=== PATIENT | female | born 1965 | race Caucasian/White ===

== ENCOUNTER 2023-06-18 11:49 | Inpatient (IN) | payer MEDICAID, SELFPAY ==
[2023-06-18] VITALS (10 sets, daily range): BP systolic 86–108; BP diastolic 51–61; PULSE 88–119; RESP 14–36; TEMP 36.3–37.1; O2SAT 93–100; BMI 19.6; BMI 20.3
--- NOTE | 2023-06-18 12:03 | CT_ITS ---
INDICATION: altered mental status EXAMINATION: CT BRAIN - CT Head or Brain W/O Contrast Injection TECHNIQUE: Multiple axial images were obtained of the head without intravenous contrast. A radiation dose optimization technique was used for this scan. IV Contrast dosage and agent: None. RADIATION DOSAGE (If Supplied By Facility): CTDIvol = ( 44.99 ) mGy, DLP = ( 812.98 ) mGycm COMPARISON: No relevant prior comparison study available FINDINGS: BRAIN PARENCHYMA: No intra- or extra-axial hemorrhage. No evidence of acute infarct. Chronic infarcts in the basal ganglia bilaterally larger on the left side. Mild chronic periventricular deep white matter changes likely due to microvascular disease. There is preservation of the childress/white matter interface. Posterior fossa structures are unremarkable. CSF SPACES: Appropriate for age. No hydrocephalus. Basal cisterns are patent. CALVARIUM, SKULL BASE, PARANASAL SINUSES AND MASTOID AIR CELLS: Clear. No discrete lytic or blastic abnormalities. ORBITS: Both globes, extraocular muscles, optic nerves and retrobulbar fat appear unremarkable. CT/Brain/Head without Contrast IMPRESSION: 1. No acute intracranial process. 2. Chronic lacunar infarcts in basal ganglia. Electronically Signed: Lokesh Smith MD at 13:06 EDT ,
--- NOTE | 2023-06-18 12:03 | EKG12_ITS ---
Test Reason : GENERAL Blood Pressure : / mmHG Vent. Rate : 101 BPM Atrial Rate : 101 BPM P-R Int : 148 ms QRS Dur : 068 ms QT Int : 366 ms P-R-T Axes : 061 015 052 degrees QTc Int : 474 ms Sinus tachycardia Nonspecific ST abnormality Abnormal ECG Confirmed by BELINDA SANDOVAL, MARTHA ([id number]), editor & co founder WAYNE DAVIS ([id number]) on 06/19/2023 8:21:53 AM Referred By: Confirmed By:MARTHA TREVINO MD
--- NOTE | 2023-06-18 12:03 | RAD_ITS ---
INDICATION: pneumonia EXAMINATION/TECHNIQUE: X-RAY - XR Chest 1 View COMPARISON: No relevant prior comparison study available FINDINGS: LINES/DEVICES: None. LUNGS: 4 cm right upper lobe opacity could reflect rounded pneumonia. Tumor however cannot be excluded. Small left pleural effusion. MEDIASTINUM AND CARDIOVASCULAR STRUCTURES: Cardiac silhouette not enlarged. Central airways and mediastinal contour are unremarkable. BONES AND SOFT TISSUES: Unremarkable. RAD/Chest 1 View (Portable) IMPRESSION: 1. Right upper lobe opacity concerning for tumor or less likely a rounded pneumonia. Consider CT scan of the chest. 2. Small left pleural effusion. Electronically Signed: Lokesh Smith MD at 13:08 EDT ,
--- NOTE | 2023-06-18 12:12 | EDS_ITS ---
HPI History of Present Illness Chief Complaint: Confusion Informant: patient, spouse/S.O. and other Narrative Narrative: Patient sent down from pulmonary office secondary to weakness, confusion, hypotension. Patient reportedly was recently admitted at [facility] and found to have a lung mass. She followed up in the office today as a new referral. Significant other states that the patient has been sick for the past 2 to 3 weeks. They thought she had a cold with cough, congestion. She had increased weakness and not wanting to get around as much at home so he took her to the hospital in [place] 1 week ago. They admitted her that evening secondary to a mass in her right lung, small bowel, as well as pneumonia. She was discharged home on June 19 with a 7-day course of cefdinir. Dr. Canales reports that she was hypotensive with systolic pressures initially in the 60s in his office improved to the 80s. She is confused and lethargic and he sent her down for workup and admission. Significant other states that she does have a history of alcohol and tobacco abuse. She has not had a drink or been smoking for the past 2 to 3 weeks. She has not seen a doctor in several years. [facility] Medical History (Updated 06/18/23 @ 14:[address] Shante Daley MD) Alcohol abuse Pneumonia Home Medications cefdinir 300 mg capsule 300 mg PO Q12H 06/18/23 [History Last Taken 06/17/23] ferrous fumarate 324 mg (106 mg iron) tablet (Ferrocite) 324 mg PO DAILY 06/18/23 [History Last Taken 06/17/23] folic acid 1 mg tablet 1 mg PO DAILY 06/18/23 [History Last Taken 06/17/23] magnesium oxide 400 mg (241.3 mg magnesium) tablet 400 mg PO TID 06/18/23 [History Last Taken 06/17/23] thiamine HCl (vitamin B1) 100 mg tablet 100 mg PO DAILY 06/18/23 [History Last Taken 06/17/23] Allergy/AdvReac Type Severity Reaction Status Date / Time No Known Allergies Allergy Verified 06/18/23 11:51 Social History Smoking Status: Former smoker ROS ROS ED ROS Narrative Patient only answering occasional questions. History provided by significant other at bedside. Review of Systems ROS Unobtainable: due to mental condition EXAM Physical Exam Const Vital Signs: 06/18/23 11:51 06/18/23 12:33 06/18/23 13:03 Temperature 97.4 F L 98 F Temperature Source Temporal Oral Pulse Rate 119 H 106 H 93 Respiratory Rate 16 36 H 32 H Blood Pressure 86/51 L 108/59 L 96/58 L Blood Pressure Mean 62 75 70 Pulse Ox 100 98 98 Oxygen Delivery Method Room Air Room Air Room Air 06/18/23 14:38 Temperature 98.1 F Temperature Source Oral Pulse Rate 92 Respiratory Rate 24 H Blood Pressure 103/60 Blood Pressure Mean 74 Pulse Ox 93 Oxygen Delivery Method Room Air Positive cachectic and unkempt General Appearance ED: unkempt and cachectic Nutritional Appearance: cachectic HEENT Reports dry mucous membranes Mouth ED: Yes dry mucous membranes Mouth: dry mucous membranes Eyes EOMs intact bilaterally Chest Wall inspection of chest normal and palpation of chest normal Resp normal respiratory effort and clear to auscultation bilaterally Cardio regular rate and regular rhythm GI non-tender Auscultation: hypoactive bowel sounds Palpation: soft Extremity normal to inspection Neuro Neuro Narrative: Patient will answer simple yes and no questions. No focal neurologic deficits apparent. Psych Appearance: unkempt Skin no rashes or lesions noted MDM MDM MDM Narrative Medical decision making narrative: Patient placed on drill operator automatic. Systolic blood pressures currently in the 60s. IV line established IV fluid bolus initiated. Labwork obtained to evaluate for leukocytosis, anemia, and electrolyte derangement. Urinalysis obtained to evaluate for infection/hematuria. Chest x-ray obtained to evaluate for acute lung pathology, cardiac size, or mediastinal abnormality. Blood and urine cultures obtained. Swab for COVID, influenza, and RSV will be obtained. Given her increased confusion and lethargy a CT scan of the head will be obtained to evaluate for any acute intracranial abnormality. History & Record Review Discussion w/independent historian: Patient and Family Lab Data Attestation: I reviewed the patient's lab results. Labs: Laboratory Results - last 24 hr 06/18/23 06/18/23 12:20 13:50 WBC 43.2 H* RBC 2.34 L Hgb 7.6 L Hct 23.3 L MCV 99.6 H MCH 32.5 H MCHC 32.6 RDW Std Deviation 51.4 H RDW Coeff of Bryanna 14.2 Plt Count 605 H MPV 9.7 Immature Gran % (Auto) 3.100 H Neut % (Auto) 86.9 H Lymph % (Auto) 4.1 L [place] % (Auto) 5.4 Eos % (Auto) 0.1 Baso % (Auto) 0.4 Absolute Neuts (auto) 37.5 H Absolute Lymphs (auto) 1.75 Nucleated RBC % 0 Differential Comment SCANNED Diff Path Review May foll Platelet Estimate MKD INC PT 14.9 INR 1.2 APTT 39.3 H Sodium 134 L Potassium 3.3 L Chloride 99 Carbon Dioxide 24.0 Anion Gap 11 BUN 10 Creatinine 0.54 L Estim Creat Clear Calc 92.08 Est GFR (MDRD) Af Amer 147 Est GFR (MDRD) Non-Af 122 BUN/Creatinine Ratio 18.4 Glucose 123 H Lactic Acid 1.5 Calcium 8.9 Total Bilirubin 0.80 AST 43 H ALT 35 Alkaline Phosphatase 111 Troponin I High Sens 3 Total Protein 6.3 L Albumin 1.8 L Globulin 4.5 H Albumin/Globulin Ratio 0.4 L Urine Color Yellow Urine Clarity Clear Urine pH 6.5 Ur Specific [place] 1.010 Urine Protein 15 H Urine Glucose (UA) Normal Urine Ketones 50 H Urine Occult Blood 10 H Urine Nitrite Negative Urine Bilirubin Negative Urine Urobilinogen Normal Ur Leukocyte Esterase 25 H Urine RBC 0 SEEN Urine WBC 5-10 SEEN Ur Squamous Epith Cells 0-5 SEEN Urine Bacteria 1+ Urine Mucus 0 SEEN Radiography Chest X-Ray - ED: 1 View, Left Effusion and - (Round mass in the right mid upper chest with a small left pleural effusion.) Diagnostic Testing: Clinical Impression(s) from Imaging Studies Chest X-Ray 06/18/23 12:03 IMPRESSION: 1. Right upper lobe opacity concerning for tumor or less likely a rounded pneumonia. Consider CT scan of the chest. 2. Small left pleural effusion. Electronically Signed: Lokesh Smith MD at 13:08 EDT , EKG Initial EKG: Attestation: I personally reviewed and interpreted this EKG as follows: Interpretation: Sinus Tachycardia (Early sinus tach at [address] change.) Treatment and Re-Evaluation :: CBC reveals elevated white count of 43.2 with 86.9% neutrophils. Records from her recent visit at [place] were reviewed and her white count was in the mid 30s at that time. Hemoglobin is low at 7.6. She was noted to be anemic during her recent admission and got 2 doses of Venofer. Coags are unremarkable. Chemistry studies reveal slightly low potassium at 3.3. 20 mEq are given IV replacement. LFTs reveal low albumin at 1.8. Total protein is also low at 6.3. Troponin is normal at 3. Lactic acid is normal at 1.5. Urinalysis does reveal 1+ bacteria with 0-5 epithelial cells and 5-10 white cells. Negative nitrites are noted. Swab for COVID, influenza, and RSV is negative. CT scan of the head reveals no acute intracranial process. Chronic lacunar infarct in the basal ganglia noted. Portable chest x-ray per my interpretation reveals round mass in the right mid upper chest. Left pleural effusion is noted. I did review her records from [place] and on CT scan round mass was noted along with an infiltrate. Patient is given Zosyn and bank to cover healthcare associated pneumonia with recent hospitalization as well as cover her urine. On repeat evaluation patient is slightly more alert. Her systolic blood pressure is 102. I will speak with hospitalist regarding admission. Discharge Plan Dx/Rx/DC Orders Clinical Impression: UTI (urinary tract infection), Anemia, Leukocytosis, Lung mass, Hypotension, Hypokalemia Disposition Disposition: Acute Care Hospital [facility]
[2023-06-18] MEDS: 0.9% Normal Saline (1000mL) 1,000 ML 999 ML IV (12:37)
[2023-06-18] MEDS: 0.9% Normal Saline (1000mL) 1,000 ML 150 ML IV (12:37)
[2023-06-18 12:46] LABS: Absolute Lymphocyte Count 1.75 X10^3/uL (0.83-4.51); Absolute Neutrophil Count 37.5 X10^3/uL (2.0-7.7); Basophil# 0.19 X10^3/uL; Basophil% 0.4 % (0-1); Eosinophil# 0.06 X10^3/uL; Eosinophils% 0.1 % (0-5); Hematocrit 23.3 % (37-47); Hemoglobin 7.6 g/dL (12.0-15.0); Lymphocyte # 1.75 X10^3/ul (0.83-4.51); Lymphocyte % 4.1 % (19-41); Mean Corp Hgb Conc 32.6 g/dL (32-36); Mean Corpuscular Hgb 32.5 pg (27.0-32.0); Mean Corpuscular Volume 99.6 fL (81-99); Mean Platelet Vol. 9.7 fl (6.2-12.0); Monocyte# 2.31 X10^3/uL; Monocyte% 5.4 % (0-10); NRBC Flagged by Analyzer 0 % (0-5); Neutrophil # 37.54 X10^3/uL (2.7-7.7); Neutrophil % 86.9 % (47-70); POSITIVE COUNT YES; POSITIVE DIFFERENTIAL YES; Platelet Count 605 K/mm3 (150-450); RBC Distribution Width CV 14.2 % (11.6-14.6); RBC Distribution Width SD 51.4 fl (35.1-43.9); Red Blood Count 2.34 M/mm3 (4.2-5.4); White Blood Count 43.2 K/mm3 (4.4-11.0)
[2023-06-18 12:49] LABS: Differential Indicated SCAN CRITERIA MET
[2023-06-18 13:02] LABS: ALB/GLOB Ratio 0.4 RATIO (0.9-2.4); AST(SGOT) 43 U/L (15-37); Alanine Aminotransfer ALT/SGPT 35 U/L (13-56); Albumin, Serum 1.8 g/dL (3.2-5.0); Alkaline Phosphatase 111 U/L (45-117); Anion Gap 11 (5-15); BUN 10 mg/dL (7-18); BUN/Creat Ratio 18.4 RATIO (10-20); Calcium,Total 8.9 mg/dL (8.5-10.1); Chloride 99 mmol/L (98-107); Creatinine, Serum 0.54 mg/dL (0.55-1.02); EST Glomerular Filtration Rate 122 mL/min (>60); Est Glom Filt Rate - Afr Amer 147 mL/min (>60); Estimated Creatinine Clearance 92.08 ml/min; Globulin 4.5 g/dL (2.2-4.2); Glucose 123 mg/dL (74-106); International Normalized Ratio 1.2; Partial Thromboplast Time 39.3 Seconds (24.1-36.2); Potassium 3.3 mmol/L (3.5-5.1); Protein, Total 6.3 g/dL (6.4-8.2); Prothrombin Time (Protime)PT. 14.9 SECONDS (11.7-14.9); Sodium Level 134 mmol/L (136-145); Troponin-I HS 3 pg/mL (3.0-54.0)
[2023-06-18 13:10] LABS: Lactic Acid 1.5 mmol/L (0.4-1.9)
[2023-06-18 13:13] LABS: Differential Comment SCANNED; Platelet Estimate MKD INC (ADEQ)
[2023-06-18 13:53] LABS: Mucous, Urine 0 SEEN /hpf (<or=2+); Red Blood Cells-Urine 0 SEEN /hpf (0-5)
[2023-06-18 13:55] LABS: Color, Urine Yellow (Yellow); Glucose, Dipstick Normal (Normal); Ketone-Dipstick 50 mg/dl (Negative); Leukocyte Esterase-Dipstick 25 /ul (Negative); Nitrite-Dipstick Negative (Negative); Occult Blood-Urine 10 /ul (Negative); Protein-Dipstick 15 mg/dl (Negative); Urine Bilirubin Dipstick Negative (Negative); Urine Clarity Clear (Clear); Urine Urobilinogen Normal (Normal); Urine pH 6.5 (5.0 - 8.0)
[2023-06-18 14:02] LABS: Bacteria 1+ /hpf (None Seen); Squamous Epithelial Cells - UA 0-5 SEEN /hpf (5-10); White Blood Cells 5-10 SEEN /hpf (0-5)
[2023-06-18] MEDS: Piperacil/Tazobactam 3.375 GM in 0.9% Normal Saline (50mL MB+) 50 ML IV ×2 (14:23→21:06)
[2023-06-18] MEDS: Potassium Chloride 10mEq/100mL 10 MEQ/100 ML IV.SOLN. 100 MEQ IV BOLUS ×2 (14:31→15:23)
--- NOTE | 2023-06-18 14:47 | PCM.HP.STD ---
HPI - General General Date of Admission: 06/18/23 Date of Service: 06/18/23 Chief Complaint: Hypotension, confused, lethargic. HPI Narrative The patient is a 57 y/o F w/ PMHx: Suspected COPD, Former tobacco use (quit 2 wks prior to current admission), Former EtOH abuse (sober x 2 weeks prior to current admission, prior 03/05-1/3 L vodka daily), Chronic anemia/Fe deficiency who presents to the [facility] ED on 06/18/23 with history of fatigue, weakness, confusion and hypertension referred from her pulmonary office with history of recent admission to [facility] and at that time diagnosed with lung mass with new office visit for evaluation of this new mass with history of recent ongoing illness with cough, congestion, URI type symptoms over the past 2 to 3 weeks with eventual hospitalization 1 week prior to current presentation with eventual diagnosis of mass in her right lung, small bowel and pneumonia concurrently at that time discharged 06/20/23 on a 7-day course of cefdinir with in the office and pulmonary with Dr. Canales noted initially hypotensive with systolics in the 60s improving eventually to the 80s with significant encephalopathy and lethargy. Patient notes she has not had any alcohol or tobacco in the past 2 weeks. Workup in the ED included T97.4, heart rate 119, BP 86/51, respiratory rate 16, on a percent on room air with most recent repeat vital signs T98.1, heart rate 92, BP 103/60, respiratory rate 24, 93% on room air, CBC with WBC 43.2, hemoglobin 7.6, MCV 99.6, platelets 605 with significant left shift, coags with PT 39.3 otherwise unremarkable, CMP with sodium 134, potassium 3.3, BUN/creatinine 10/0.54, glucose 123, lactic acid 1.5, hepatic profile not marked appearing, troponin 3, urinalysis with specific remedy 1.010, protein 15, ketone 50, occult blood 10, nitrite negative, leukocyte esterase 25 with urine WBCs 5-10 with 1+ urine bacteria but no marked appearing, urine culture pending per ED, blood culture x 2 pending per ED, SARS COVID/influenza/RSV PCR negative, chest x-ray with right upper lobe opacity concerning for tumor less likely a rounded pneumonia, small left pleural effusion, CT brain with no acute intracranial process with evidence of chronic lacunar infarcts in the basal ganglia, EKG with sinus tachycardia with no acute evidence of ischemia. In the ED patient administered IV Zosyn, IV vancomycin, potassium supplementation as well as 1 L normal saline bolus and maintenance aggressive IV fluids. [facility] Medical History (Updated 06/18/23 @ 19:[address] Karuna Marrero MD) Chronic anemia COPD (chronic obstructive pulmonary disease) Former tobacco use History of alcohol abuse Iron deficiency Lung mass Small bowel mass Home Medications cefdinir 300 mg capsule 300 mg PO Q12H 06/18/23 [History Last Taken 06/17/23] ferrous fumarate 324 mg (106 mg iron) tablet (Ferrocite) 324 mg PO DAILY 06/18/23 [History Last Taken 06/17/23] folic acid 1 mg tablet 1 mg PO DAILY 06/18/23 [History Last Taken 06/17/23] magnesium oxide 400 mg (241.3 mg magnesium) tablet 400 mg PO TID 06/18/23 [History Last Taken 06/17/23] thiamine HCl (vitamin B1) 100 mg tablet 100 mg PO DAILY 06/18/23 [History Last Taken 06/17/23] Allergy/AdvReac Type Severity Reaction Status Date / Time No Known Allergies Allergy Verified 06/18/23 11:51 Family History (Updated 06/18/23 @ 19:[address] Karuna Marrero MD) Mother Heart disease Hypertension Myocardial infarction CAD (coronary artery disease) Father Brain cancer Surgical History (Updated 06/18/23 @ 19:[address] Karuna Marrero MD) History of dental surgery Social History (Updated 06/18/23 @ 19:[address] Karuna Marrero MD) household members: spouse Smoking Status: Former smoker how long ago did patient quit smoking: Quit 2 wks prior to admission, smoked 1 ppd intermittently since teen. alcohol intake: former details: Sober x 2 weeks, 1/4-1/3 of 1L vodka daily. substance use type: does not use ROS ROS Narrative Admission Review of Systems: CONSTITUTIONAL: No weight loss, fever, chills, + weakness or fatigue. HEENT: + Recent history of URI with congestion, runny nose. Eyes: No visual loss, blurred vision, double vision or yellow sclerae. Ears, Nose, Throat: No hearing loss. SKIN: No rash or itching, lesions, wounds. CARDIOVASCULAR: No chest pain, chest pressure or chest discomfort, palpitations, edema, orthopnea, syncopal events. RESPIRATORY: + Dyspnea, no markedly productive cough but did have recent history of cough during prior outside facility presentation. No marked wheezing or hemoptysis. GASTROINTESTINAL: + Anorexia. No nausea, vomiting or diarrhea, abdominal pain, melena, BRBPR. GENITOURINARY: No dysuria, frequency, urgency or retention. NEUROLOGICAL: No headache, dizziness, syncope, paralysis, ataxia, numbness or tingling in the extremities, focal weakness, change in bowel or bladder control, seizure. MUSCULOSKELETAL: No muscle, back pain, joint pain or stiffness. HEMATOLOGIC: + Chronic anemia, easy bleeding/bruising. LYMPHATICS: No enlarged nodes. No history of splenectomy. PSYCHIATRIC: No history of depression or anxiety. ENDOCRINOLOGIC: + reports of sweating, cold or heat intolerance. No polyuria or polydipsia. ALLERGIES: No history of asthma, hives, eczema or rhinitis. Vital Signs Vital Signs Vital Signs: 06/18/23 11:51 06/18/23 12:33 06/18/23 13:03 Temperature 97.4 F L 98 F Temperature Source Temporal Oral Pulse Rate 119 H 106 H 93 Respiratory Rate 16 36 H 32 H Blood Pressure 86/51 L 108/59 L 96/58 L Blood Pressure Mean 62 75 70 Pulse Ox 100 98 98 Oxygen Delivery Method Room Air Room Air Room Air 06/18/23 14:38 Temperature 98.1 F Temperature Source Oral Pulse Rate 92 Respiratory Rate 24 H Blood Pressure 103/60 Blood Pressure Mean 74 Pulse Ox 93 Oxygen Delivery Method Room Air Weight Weight: 114 lb 10.246 oz Body Mass Index (BMI) 19.6 Physical Exam Narrative Physical Examination: General: Awake, alert, oriented x 3 and cooperative, seated upright in the ED bed, fatigued, no acute distress. Skin: Normal color, normal turgor, no icterus, no cyanosis except occasional staged ecchymoses. HEENT: AT/NC, EOMI, PERRLA, dry MM, no carotid bruits or JVD noted. Lungs: Diminished, greater bases, mildly rhonchorous but improves with coughing, no appreciated rales, occasional end expiratory wheeze, no evidence of distress. Heart: Tachycardic with regular rhythm; no gallop, rub audible. Abdomen: Soft, NTTP, ND, hyperactive BS, no appreciated HSM. Extremities: No cyanosis, no clubbing, no marked peripheral edema. Neurological: Patient awake, alert, oriented as noted, cognitive function intact; pupils equally reactive to light and accommodation, cranial nerves grossly normal, moving all 4 extremities, no focal deficits, strength moderately to severely globally decreased. Psychiatric: Affect appears flat, fatigued, no acute evidence of depressive or anxiety feelings. Results Lab / Micro Data 06/18/23 12:20 06/18/23 12:20 Labs: Laboratory Results - last 24 hr 06/18/23 12:20: WBC 43.2 H*, RBC 2.34 L, Hgb 7.6 L, Hct 23.3 L, MCV 99.6 H, MCH 32.5 H, MCHC 32.6, RDW Std Deviation 51.4 H, RDW Coeff of Bryanna 14.2, Plt Count 605 H, MPV 9.7, Immature Gran % (Auto) 3.100 H, Neut % (Auto) 86.9 H, Lymph % (Auto) 4.1 L, [place] % (Auto) 5.4, Eos % (Auto) 0.1, Baso % (Auto) 0.4, Absolute Neuts (auto) 37.5 H, Absolute Lymphs (auto) 1.75, Nucleated RBC % 0, Differential Comment SCANNED, Diff Path Review June, Platelet Estimate MKD INC, PT 14.9, INR 1.2, APTT 39.3 H, Sodium 134 L, Potassium 3.3 L, Chloride 99, Carbon Dioxide 24.0, Anion Gap 11, BUN 10, Creatinine 0.54 L, Estim Creat Clear Calc 92.08, Est GFR (MDRD) Af Amer 147, Est GFR (MDRD) Non-Af 122, BUN/Creatinine Ratio 18.4, Glucose 123 H, Lactic Acid 1.5, Calcium 8.9, Total Bilirubin 0.80, AST 43 H, ALT 35, Alkaline Phosphatase 111, Troponin I High Sens 3, Total Protein 6.3 L, Albumin 1.8 L, Globulin 4.5 H, Albumin/Globulin Ratio 0.4 L 06/18/23 13:50: Urine Color Yellow, Urine Clarity Clear, Urine pH 6.5, Ur Specific [place] 1.010, Urine Protein 15 H, Urine Glucose (UA) Normal, Urine Ketones 50 H, Urine Occult Blood 10 H, Urine Nitrite Negative, Urine Bilirubin Negative, Urine Urobilinogen Normal, Ur Leukocyte Esterase 25 H, Urine RBC 0 SEEN, Urine WBC 5-10 SEEN, Ur Squamous Epith Cells 0-5 SEEN, Urine Bacteria 1+, Urine Mucus 0 SEEN Micro: Microbiology 06/18/23 13:32 Mucosa - Nose SARS-CoV-2, Influenza & RSV (PCR) - Final Imaging Radiology Impression Chest X-Ray 06/18/23 12:03 IMPRESSION: 1. Right upper lobe opacity concerning for tumor or less likely a rounded pneumonia. Consider CT scan of the chest. 2. Small left pleural effusion. Electronically Signed: Lokesh Simth MD at 13:08 EDT , Assessment & Plan Assessment/Plan (1) Hypotension: PLAN: Plan The patient is a 57 y/o F w/ PMHx: Suspected COPD, Former tobacco use (quit 2 wks prior to current admission), Former EtOH abuse (sober x 2 weeks prior to current admission, prior 03/05-03/04 L vodka daily), Chronic anemia/Fe deficiency who presents to the [facility] ED on 06/18/23 with history of fatigue, weakness, confusion and hypertension referred from her pulmonary office with history of recent admission to [facility] and at that time diagnosed with lung mass with new office visit for evaluation of this new mass with history of recent ongoing illness with cough, congestion, URI type symptoms over the past 2 to 3 weeks with eventual hospitalization 1 week prior to current presentation with eventual diagnosis of mass in her right lung, small bowel and pneumonia concurrently at that time discharged 06/20/23 on a 7-day course of cefdinir with in the office and pulmonary with Dr. Canales noted initially hypotensive with systolics in the 60s improving eventually to the 80s with significant encephalopathy and lethargy. #1. Acute Encephalopathy, Multifactorial, associated with Possible Acute RUL PNA complicated by recent Lung Mass/SB mass with Underlying malignancy, unclear type and certainly could be consistent with recent mass findings in addition to #2, #3: Will admit to PCU, maintain on oxygen with wean as tolerated to room air continue ATC duonebs, PRN albuterol, maintained on IV Zosyn and Vancomycin given recent prior admission and treatment of PNA at that time with possibly failed abx therapy, HOB, IS parameters w/ pending sputum cultures, full respiratory viral panel and urine antigens. Will consult Dr. Canales Pulmonary medicine per discussion with patient and family. Bld cx x 2 obtained in the ED. PT/OT/case management consulted for discharge planning. Records recently were received to the pulmonary office as patient was post to have pulmonary visit on day of presentation with Dr. Canales, encourage these to be scanned in. #2. Questionable Acute Complicated Urinary Tract Infection: UA upon ED evaluation mildly remarkable thus does not appear like an overt UTI but to be cautious pending UCx, continue judicious IVFs, monitor I/Os, continue IV abx therapy as noted above #1 pending sensitivities and speciation. Bld cx x 2 obtained in the ED. #3. Transient hypotension, suspect multifactorial, possibly #1, #2 as well as suspected dehydration: BP in the ED improved with IV fluid administration alone, will continue judicious hydration, trend BMP, maintain on fall precautions and continue treatment of possible infectious source as noted above. #4. Hypokalemia: Admission K+ 3.3, magnesium level requested, supplementation given, repeat level in AM. #5. Macrocytic anemia, unclear chronicity/iron deficiency anemia: Admission hemoglobin 7.6, MCV 99.6, unclear baseline, will obtain guaiac, iron studies, ferritin, vitamin B12 and folic acid to be cautious, continue iron supplementation from patient medication list. #6. Former EtOH Abuse: Patient reports sober x 2 weeks. Will maintain onMVI, thiamine and folic acid. Case management consulted. #7. Chronic COPD: Will maintain on oxygen with wean as tolerated to room air, continue ATC duonebs, PRN albuterol, HOB, IS parameters. #8. Former Tobacco use: Encourage continued tobacco cessation. #9. CT evidence of previous CVA: Incidentally noted chronic lacunar infarcts in the basal ganglia, will maintain on baby aspirin, given presentation would defer any hypertensive regimen at this point and no prior history per report, not on statin therapy, encourage continued outpatient evaluation. #10. DVT prophylaxis: Lovenox. #11. CODE status: Patient notes that her who is present would be her decision-maker if she was unable with no current healthcare power of banking attorney or living will technically in place. Discussed CODE status at length including difference between FULL code, DNR-CCA and DNR-CC status. Following discussions about the differences in these status, requested Full Code status. Advanced Care Planning Face to Face Time: 16 minutes. Charges/Coding Visit Charges Inpatient E&M: 78918 Init Hosp L3 Procedures Hospitalists Procedures: 35907 Advncd Care Plan 30 Min
[2023-06-18] MEDS: Vancomycin HCl 750 MG in 0.9% Normal Saline (250mL Bag) 250 ML 250 MG IV (16:08)
[2023-06-18 16:32] LABS: Iron 14 ug/dL (50-170); Iron Binding Capacity,Total 117 ug/dL (250-450); Magnesium 2.2 mg/dL (1.6-2.6)
[2023-06-18] MEDS: 0.9% Normal Saline (1000mL) 1,000 ML 100 ML IV (17:19)
--- NOTE | 2023-06-18 17:34 | PCM.RX.CS ---
Consult Antibiotic Management Pharmacy has been consulted to manage selected antibiotic: Vancomycin Type of Intervention Type of Consult: New start Suspected Infection Suspected Infection: Pneumonia Prior Doses of Antibiotics Prior Doses of Antibiotics Received/Current Regimen: Vancomycin 750 mg IV x 1 given 06/18/23 @ 1608, patient is also on piperacillin/tazobactam 3.375 grams Q8H Labs Labs: Sodium 134 mmol/L (136-145) L 06/18/23 12:20 Potassium 3.3 mmol/L (3.5-5.1) L 06/18/23 12:20 Chloride 99 mmol/L (98-107) 06/18/23 12:20 Carbon Dioxide 24.0 mmol/L (21.0-32.0) 06/18/23 12:20 Anion Gap 11 (5-15) 06/18/23 12:20 BUN 10 mg/dL (7-18) 06/18/23 12:20 Creatinine 0.54 mg/dL (0.55-1.02) L 06/18/23 12:20 Est GFR (MDRD) Af Amer 147 mL/min (>60) 06/18/23 12:20 Est GFR (MDRD) Non-Af 122 mL/min (>60) 06/18/23 12:20 BUN/Creatinine Ratio 18.4 RATIO (10-20) 06/18/23 12:20 Glucose 123 mg/dL (74-106) H 06/18/23 12:20 Microbiology Microbiology: Microbiology 06/18/23 13:50 Urine, Clean Catch Legionella Antigen - Final 06/18/23 13:50 Urine, Clean Catch Streptococcus pneumoniae Antigen (M - Final 06/18/23 13:32 Mucosa - Nose SARS-CoV-2, Influenza & RSV (PCR) - Final Dosing Weight Weight used for dosin kg Estimated Creatinine Clearance Estimated Creatinine Clearance: ~92 Goal Trough Goal Trough: 15-20 mcg/mL Pharmacy Plan for Drug Dosing Pharmacy Plan for Drug Dosing: Vancomycin 750 mg IV x 1, followed by 1000 mg IV Q12H. Pharmacy Service will continue to monitor and adjust dosing as required. Follow-Up Labs Follow-Up Labs: Trough: Vancomycin Date/Time Labs Ordered Labs to be done on [date and time ordered]: 06/20/23 @ 4772
[2023-06-18 18:00] LABS: Procalcitonin 0.62 ng/mL (0.00-0.09); Vitamin B12 1380 pg/mL (211-911)
[2023-06-18 18:12] LABS: Ferritin 3009 ng/mL (8-252)
[2023-06-18 18:59] LABS: M R Staph aureus DNA By PCR Negative (Negative); Probe Check PASS; Specimen Processing Control PASS
[2023-06-18] MEDS: Ipratropium/Albuterol Sulfate 3 ML AMPUL.NEB INHALATION (19:04)
[2023-06-18] MEDS: MELATONIN 3 MG TABLET PO (21:07)
[2023-06-18] MEDS: Acetaminophen 325 MG Tablet 650 MG PO (21:07)
[2023-06-18] MEDS: Magnesium Chloride 64 MG Delay Rel.Tablet 128 MG PO (21:08)
[2023-06-19] VITALS (15 sets, daily range): BP systolic 94–116; BP diastolic 46–70; PULSE 92–117; RESP 12–28; TEMP 36.6–37; O2SAT 91–99; BMI 20.3
[2023-06-19] MEDS: Vancomycin IV 1,000 MG/200 ML BAG 200 MG IV ×2 (03:41→16:28)
[2023-06-19] MEDS: Piperacil/Tazobactam 3.375 GM in 0.9% Normal Saline (50mL MB+) 50 ML IV ×3 (05:06→22:54)
[2023-06-19] MEDS: Magnesium Chloride 64 MG Delay Rel.Tablet 128 MG PO ×3 (05:10→22:54)
[2023-06-19 06:42] LABS: Absolute Lymphocyte Count 1.72 X10^3/uL (0.83-4.51); Absolute Neutrophil Count 34.4 X10^3/uL (2.0-7.7); Basophil# 0.13 X10^3/uL; Basophil% 0.3 % (0-1); Eosinophils% 0.3 % (0-5); Hematocrit 18.8 % (37-47); Hemoglobin 6.1 g/dL (12.0-15.0); Lymphocyte # 1.72 X10^3/ul (0.83-4.51); Lymphocyte % 4.5 % (19-41); Mean Corp Hgb Conc 32.4 g/dL (32-36); Mean Corpuscular Hgb 32.6 pg (27.0-32.0); Mean Corpuscular Volume 100.5 fL (81-99); Mean Platelet Vol. 9.7 fl (6.2-12.0); Monocyte# 1.42 X10^3/uL; Monocyte% 3.7 % (0-10); NRBC Flagged by Analyzer 0 % (0-5); Neutrophil # 34.38 X10^3/uL (2.7-7.7); Neutrophil % 89.4 % (47-70); POSITIVE COUNT YES; POSITIVE DIFFERENTIAL YES; Platelet Count 532 K/mm3 (150-450); RBC Distribution Width CV 14.2 % (11.6-14.6); RBC Distribution Width SD 52.3 fl (35.1-43.9); Red Blood Count 1.87 M/mm3 (4.2-5.4)
[2023-06-19 06:48] LABS: Differential Indicated SCAN CRITERIA MET; White Blood Count 38.5 K/mm3 (4.4-11.0)
[2023-06-19 07:10] LABS: ALB/GLOB Ratio 0.4 RATIO (0.9-2.4); AST(SGOT) 36 U/L (15-37); Alanine Aminotransfer ALT/SGPT 31 U/L (13-56); Albumin, Serum 1.7 g/dL (3.2-5.0); Alkaline Phosphatase 118 U/L (45-117); Anion Gap 10 (5-15); BUN 7 mg/dL (7-18); BUN/Creat Ratio 15.4 RATIO (10-20); Calcium,Total 8.2 mg/dL (8.5-10.1); Chloride 108 mmol/L (98-107); Creatinine, Serum 0.46 mg/dL (0.55-1.02); EST Glomerular Filtration Rate 149 mL/min (>60); Est Glom Filt Rate - Afr Amer 180 mL/min (>60); Estimated Creatinine Clearance 111.84 ml/min; Globulin 3.9 g/dL (2.2-4.2); Glucose 116 mg/dL (74-106); Protein, Total 5.6 g/dL (6.4-8.2); Sodium Level 140 mmol/L (136-145)
[2023-06-19] MEDS: Ipratropium/Albuterol Sulfate 3 ML AMPUL.NEB INHALATION ×3 (07:13→18:52)
[2023-06-19 07:47] LABS: Hypochromasia 2+
--- NOTE | 2023-06-19 08:13 | PCM.PN.HOSP ---
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 Patient was recently diagnosed with a pulmonary mass and is currently being worked up. Had recently been treated for pneumonia with cefdinir Objective Data Objective Data Vital Signs: Vital Signs Temp Pulse Resp BP Pulse Ox O2 Del Method 98.3 F 102 H 16 103/57 L 94 Room Air 06/19/23 04:07 06/19/23 04:07 06/19/23 04:07 06/19/23 04:07 06/19/23 04:07 06/19/23 04:07 Oxygen Delivery Method Room Air Weight: 53.8 kg Body Mass Index (BMI) 20.3 Intake & Output: Intake and Output for Last 24 Hours 06/17/23 06/18/23 06/19/23 23:59 23:59 23:59 Intake Total 2107.5 / 2107.5 1250 / 1250 Output Total 110 / 110 225 / 225 Balance 1996.5 / 1996. 1025 / 1025 Lab / Micro Data 06/19/23 04:40 06/19/23 04:40 Labs: Laboratory Results - last 24 hr 06/18/23 12:20: WBC 43.2 H*, RBC 2.34 L, Hgb 7.6 L, Hct 23.3 L, MCV 99.6 H, MCH 32.5 H, MCHC 32.6, RDW Std Deviation 51.4 H, RDW Coeff of Bryanna 14.2, Plt Count 605 H, MPV 9.7, Immature Gran % (Auto) 3.100 H, Neut % (Auto) 86.9 H, Lymph % (Auto) 4.1 L, Ida % (Auto) 5.4, Eos % (Auto) 0.1, Baso % (Auto) 0.4, Absolute Neuts (auto) 37.5 H, Absolute Lymphs (auto) 1.75, Nucleated RBC % 0, Differential Comment SCANNED, Diff Path Review June, Platelet Estimate MKD INC, PT 14.9, INR 1.2, APTT 39.3 H, Sodium 134 L, Potassium 3.3 L, Chloride 99, Carbon Dioxide 24.0, Anion Gap 11, BUN 10, Creatinine 0.54 L, Estim Creat Clear Calc 92.08, Est GFR (MDRD) Af Amer 147, Est GFR (MDRD) Non-Af 122, BUN/Creatinine Ratio 18.4, Glucose 123 H, Lactic Acid 1.5, Calcium 8.9, Magnesium 2.2, Iron 14 L, TIBC 117 L, Iron Saturation 12.0 L, Total Bilirubin 0.80, AST 43 H, ALT 35, Alkaline Phosphatase 111, Troponin I High Sens 3, Total Protein 6.3 L, Albumin 1.8 L, Globulin 4.5 H, Albumin/Globulin Ratio 0.4 L 06/18/23 13:50: Urine Color Yellow, Urine Clarity Clear, Urine pH 6.5, Ur Specific [place] 1.010, Urine Protein 15 H, Urine Glucose (UA) Normal, Urine Ketones 50 H, Urine Occult Blood 10 H, Urine Nitrite Negative, Urine Bilirubin Negative, Urine Urobilinogen Normal, Ur Leukocyte Esterase 25 H, Urine RBC 0 SEEN, Urine WBC 5-10 SEEN, Ur Squamous Epith Cells 0-5 SEEN, Urine Bacteria 1+, Urine Mucus 0 SEEN 06/18/23 17:20: Ferritin 3009 H, Vitamin B12 1380 H, Folate 15.30, Procalcitonin 0.62 H 06/18/23 17:30: MRSA (PCR) Negative 06/19/23 04:40: WBC 38.5 H*, RBC 1.87 L, Hgb 6.1 L, Hct 18.8 L, MCV 100.5 H, MCH 32.6 H, MCHC 32.4, RDW Std Deviation 52.3 H, RDW Coeff of Bryanna 14.2, Plt Count 532 H, MPV 9.7, Immature Gran % (Auto) 1.800 H, Neut % (Auto) 89.4 H, Lymph % (Auto) 4.5 L, Ida % (Auto) 3.7, Eos % (Auto) 0.3, Baso % (Auto) 0.3, Absolute Neuts (auto) 34.4 H, Absolute Lymphs (auto) 1.72, Nucleated RBC % 0, Diff Path Review May foll, Hypochromasia 2+, Sodium 140, Potassium 3.0 L, Chloride 108 H, Carbon Dioxide 22.0, Anion Gap 10, BUN 7, Creatinine 0.46 L, Estim Creat Clear Calc 111.84, Est GFR (MDRD) Af Amer 180, Est GFR (MDRD) Non-Af 149, BUN/Creatinine Ratio 15.4, Glucose 116 H, Calcium 8.2 L, Total Bilirubin 0.50, AST 36, ALT 31, Alkaline Phosphatase 118 H, Total Protein 5.6 L, Albumin 1.7 L, Globulin 3.9, Albumin/Globulin Ratio 0.4 L Micro: Microbiology 06/18/23 17:54 Mucosa - Nasopharyngeal Respiratory Panel (PCR) - Final 06/18/23 13:50 Urine, Clean Catch Legionella Antigen - Final 06/18/23 13:50 Urine, Clean Catch Streptococcus pneumoniae Antigen (M - Final 06/18/23 13:32 Mucosa - Nose SARS-CoV-2, Influenza & RSV (PCR) - Final Radiography Diagnostic Testing: Radiology Impression Brain CT 06/18/23 12:03 IMPRESSION: 1. No acute intracranial process. 2. Chronic lacunar infarcts in basal ganglia. Electronically Signed: Lokesh Smith MD at 13:06 EDT , Chest X-Ray 06/18/23 12:03 IMPRESSION: 1. Right upper lobe opacity concerning for tumor or less likely a rounded pneumonia. Consider CT scan of the chest. 2. Small left pleural effusion. Electronically Signed: Lokesh Smith MD at 13:08 EDT , Physical Exam Narrative GENERAL: Frail looking HEENT: Atraumatic; normocephalic EYES; Anicteric, Normal Conjunctiva NECK; supple, normal thyroid, RESPIRATORY: Diminished to auscultation CARDIOVASCULAR: Regular S1 S2, GI: soft, normoactive bowel sounds, : No Renal angle tenderness; EXTREMITIES: No edema, no clubbing, MUSCULOSKELETAL: no muscle wasting NEURO: Awake; no lateralizing signs. 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 Patient was recently diagnosed with a pulmonary mass and is currently being worked up. Had recently been treated for pneumonia with cefdinir 1. Acute encephalopathy ? Etiology not clear. Patient underwent evaluation with CT of the head which was negative for acute CVA 2. Right upper lobe pneumonia -?? Postobstructive pneumonia patient has significant leukocytosis. Patient started on Zosyn and vancomycin to cover for multidrug-resistant organisms 3. Lung mass ? CT of the abdomen pelvis and chest ordered for subsequent eval plan is for patient to follow-up with pulmonary medicine when medically stable 4. Hypertension - Blood pressure controlled, home medications continued with dose adjustment as needed 5. Hypokalemia -Corrected per protocol, repeat labs ordered for a.m. 6. Anemia - Secondary to chronic disorder/underlying malignancy monitoring H&H and transfuse if patient becomes symptomatic or hemoglobin falls below 7. With the patient hemoglobin being low at 6.1 did undertake iron studies, B12 as well as ferritin levels and order was given for patient to be transfused 1 unit PRBC 7. COPD with acute exacerbation - Patient started on bronchodilator treatment, systemic steroid as well as antibiotic therapy. Patient placed on oxygen titrated to keep saturation greater than 90. 8. Tobacco dependence - Counseled on cessation, offered nicotine patch for tobacco cravings 9. CT evidence of old lacunar infarct ? Patient was started on antiplatelet therapy with aspirin held given her significant anemia 10. DVT prophylaxis ? Patient has been started on enoxaparin discontinued given her significant anemia Time spent in the patient's overall evaluation,decision-making process, review of diagnostic data, adjustment of management, discussion with other providers, nursing nursing and ancillary staff involved in patient's care documentation, 52 Minutes Charges/Coding Visit Charges Inpatient E&M: 72647 [facility] Hosp L3
--- NOTE | 2023-06-19 08:17 | CT_ITS ---
STUDY: CT CHEST, ABDOMEN T PELVIS WITH CONTRAST REASON FOR EXAM: Female, 57 years old. Lung and small bowel mass RADIATION DOSAGE (If Supplied By Facility): CTDIvol = ( 9.10 ) mGy, DLP = ( 740.74 ) mGycm TECHNIQUE: Transaxial imaging was performed following intravenous administration of IV 100mL Isovue-300. Individualized dose optimization techniques were used for this CT. COMPARISON: Comparison is made with prior chest radiograph dated June 18, 2023. FINDINGS: CHEST There is a 3.7 cm x 3.3 cm mass in the upper lateral aspect of the right upper lobe. Neoplastic process should be ruled out. There is a 5.6 mm faint nodule seen in the posterior aspect of the right upper lobe as seen on axial image #23. There are small bilateral pleural effusions left greater than right with bibasilar atelectasis and/or infiltrate. Minimal anterior pericardial thickening. No coronary artery calcification is seen. Normal mediastinum. Normal hilar regions. Normal unenhanced pulmonary arteries. There is atherosclerotic calcification of the aortic arch. There is an increased kyphosis of the thoracic spine. Mild degree of multilevel disc space narrowing. ABDOMEN Normal liver. Normal gallbladder and extrahepatic biliary system. Normal spleen. Normal pancreas. Normal bilateral adrenal glands. Normal right kidney. Normal left kidney. Normal visualized stomach. There is evidence of a 4.5 cm x 4 cm x 5 cm heterogeneous mass in the distal ileum. There are multiple colonic diverticula consistent with diverticulosis. The appendix is visualized and appears normal. There is diffuse atherosclerotic calcification of the abdominal aorta, without a demonstrated aneurysm. Normal inferior vena cava. Normal retroperitoneum. There is a small umbilical hernia containing fat. There are degenerative changes of the visualized lumbar spine. PELVIS Bladder wall thickening although the bladder is not completely distended. There is no pelvic fluid. There is no pelvic lymphadenopathy or mass lesion. There is diffuse atherosclerotic calcification of the pelvic arteries. CT/CT Chest, Abd, Pel w/Contrast IMPRESSION: 3.7 cm x 3.3 cm mass in the lateral aspect of the right upper lobe. 5.6 mm faint nodule seen in the posterior aspect of the right upper lobe on axial image #23. There is a 4.5 cm x 4 cm x 5 cm heterogeneous mass in the distal ileum. Bladder wall thickening although bladder is not completely distended at this time. Electronically Signed: Tomas Palmer MD at 12:32 EDT ,
[2023-06-19] MEDS: Potassium Chloride Oral Tablet 20 MEQ 40 MEQ PO (08:28)
[2023-06-19] MEDS: Iron Polysaccharide Complex 150 MG CAPSULE PO (08:29)
[2023-06-19] MEDS: Folic Acid 1 MG Tablet PO (08:29)
[2023-06-19] MEDS: Aspirin 81 MG TAB.CHEW PO (08:29)
[2023-06-19] MEDS: Multivitamins,Ther W-Minerals Tablet 1 TABLET PO (08:29)
[2023-06-19] MEDS: Thiamine Hydrochloride 100 MG Tablet PO (08:30)
[2023-06-19] MEDS: Contrast Allergy Safety Check IV (08:37)
[2023-06-19 09:15] LABS: Vitamin B12 1038 pg/mL (211-911)
[2023-06-19 09:39] LABS: Ferritin 2727 ng/mL (8-252); Iron 15 ug/dL (50-170); Iron Binding Capacity,Total 176 ug/dL (250-450); PERCENT IRON SATURATION 8.5 % (15.0-55.0)
--- NOTE | 2023-06-19 14:27 | CHAPLAIN ---
Type of Pastoral Visit _x__ Initial Visit ___ Follow-up Visit ___ On-call Visit ___ General Patient Visit ___ Spiritual Assessment ___ Family Conference ___ Bereavement ___ Rapid Response ___ Code Blue ___ Other (describe below) Pastoral Care Referral From _x__ Patient _x__ Family ___ Nurse ___ Physician ___ Spinning Operator ___ Lowerator Operator ___ Other (describe below) Sacrament/Intervention _x__ Active listening ___ Anointing ___ Faith ___ Bereavement ___ Communion ___ Linda exploration ___ ___ Life review _x__ Prayer ___ Reconciliation ___ Sacrament of Sick _x__ Supportive presence ___ Wedding ___ Other (describe below) Pastoral Comments patient is awake but slow to respond to questions and appears weak; spouse is with her and gives more of the details of her situation; offer of presence and support; spouse indicates their linda in God over medicine; both welcome a prayer to be spoken for her recovery
--- NOTE | 2023-06-19 14:30 | CASEMGMT ---
ALEXANDRA SEXTON Face to Face with patient for initial transition planning/care coordination assessment. RN CM introduced self and role at [facility]. Patient lying in bed, alert and oriented, at bedside. Patient willing to participate in assessment and is able to answer all questions appropriately. Care providers, pharmacy, and demographics verified. PCP: none, PCP list provided and [facility] Specialists: Dashawn Canales, battery hand; [facility] Preferred Pharmacy: [facility] Insurance: [facility] Prescription Benefit: yes Living Will/HPOA: yes, Jermaine Alethea LNOK: Living Arrangements: Patient lives with in a 2 story home. Patient states she is independent and able to ambulate stairs. Transportation: DME/HHC: Patient has walker, shower chair, and wheelchair at home. No previous HHC or SNF. Patient wishes to discharge home, interest in outpatient therapy, script to be provided at discharge. Patient states she has no further needs or concerns at this time. CM to follow for discharge planning needs that may arise. Disposition Plan: Patient to discharge home with outpatient therapy, family support, and follow-up plans in place. Mikayla BILL, RN, CM
[2023-06-19 16:02] LABS: Pathologist Review Reviewed
[2023-06-19] MEDS: 0.9% Saline Lock 10 ML Syringe IV (16:29)
[2023-06-19] MEDS: Potassium Chloride Oral Tablet 20 MEQ PO (17:02)
--- NOTE | 2023-06-19 17:35 | EX.PCM.CON.G ---
HPI Consult Data Date of Consult: 06/19/23 Attending Care Provider: Anemia HPI Narrative HPI Narrative: CARL PERALTA, is a 57 F who presents with weakness and fatigue. She has a past medical history of suspected COPD, Former tobacco use Former EtOH abuse 1/4-1/3 L vodka daily), Chronic anemia/Fe deficiency. She presented to the [facility] ED on 06/18/23 with history of fatigue, weakness, confusion and hypertension referred from her pulmonary office with history of recent admission to [facility] and at that time diagnosed with lung mass. She was also had URI type symptoms over the past 2 to 3 weeks with eventual hospitalization 1 week prior to current presentation with eventual diagnosis of mass in her right lung, small bowel and pneumonia concurrently at that time discharged 06/20/23 on a 7-day course of cefdinir with in the office and pulmonary with Dr. Canales. She was noted initially hypotensive with systolics in the 60s improving eventually to the 80s with significant encephalopathy and lethargy. Patient notes she has not had any alcohol or tobacco in the past 2 weeks. Workup in the ED included T97.4, heart rate 119, BP 86/51, respiratory rate 16, on a percent on room air with most recent repeat vital signs T98.1, heart rate 92, BP 103/60, respiratory rate 24, 93% on room air, CBC with WBC 43.2, hemoglobin 7.6, MCV 99.6, platelets 605 with significant left shift, coags with PT 39.3 otherwise unremarkable, CMP with sodium 134, potassium 3.3, BUN/creatinine 10/0.54, glucose 123, lactic acid 1.5, hepatic profile not marked appearing, troponin 3, urinalysis with specific remedy 1.010, protein 15, ketone 50, occult blood 10, nitrite negative, leukocyte esterase 25 with urine WBCs 5-10 with 1+ urine bacteria but no marked appearing, urine culture pending per ED, blood culture x 2 pending per ED , SARS COVID/influenza/RSV PCR negative, chest x-ray with right upper lobe opacity concerning for tumor less likely a rounded pneumonia, small left pleural effusion, CT brain with no acute intracranial process with evidence of chronic lacunar infarcts in the basal ganglia, EKG with sinus tachycardia with no acute evidence of ischemia. I was asked to see her because her hemoglobin keeps dropping and is down to 6.1. She also had a CT scan abdomen pelvis that shows a 4 x 4 cm mass in the distal ileum. In the ED patient administered IV Zosyn, IV vancomycin, potassium supplementation as well as 1 L normal saline bolus and maintenance aggressive IV fluids. [facility] Medical History (Updated 06/18/23 @ 19:[address] Karuna Marrero MD) Chronic anemia COPD (chronic obstructive pulmonary disease) Former tobacco use History of alcohol abuse Iron deficiency Lung mass Small bowel mass Home Medications cefdinir 300 mg capsule 300 mg PO Q12H 06/18/23 [History Last Taken 06/17/23] ferrous fumarate 324 mg (106 mg iron) tablet (Ferrocite) 324 mg PO DAILY 06/18/23 [History Last Taken 06/17/23] folic acid 1 mg tablet 1 mg PO DAILY 06/18/23 [History Last Taken 06/17/23] magnesium oxide 400 mg (241.3 mg magnesium) tablet 400 mg PO TID 06/18/23 [History Last Taken 06/17/23] thiamine HCl (vitamin B1) 100 mg tablet 100 mg PO DAILY 06/18/23 [History Last Taken 06/17/23] Allergy/AdvReac Type Severity Reaction Status Date / Time No Known Allergies Allergy Verified 06/18/23 11:51 Family History (Updated 06/18/23 @ 19:[address] Karuna Marrero MD) Mother Heart disease Hypertension Myocardial infarction CAD (coronary artery disease) Father Brain cancer Surgical History (Updated 06/18/23 @ 19:[address] Karuna Marrero MD) History of dental surgery Social History (Updated 06/18/23 @ 19:[address] Karuna Marrero MD) household members: spouse Smoking Status: Former smoker how long ago did patient quit smoking: Quit 2 wks prior to admission, smoked 1 ppd intermittently since teen. alcohol intake: former details: Sober x 2 weeks, 1/4-1/3 of 1L vodka daily. substance use type: does not use ROS ROS Narrative Admission Review of Systems: CONSTITUTIONAL: No weight loss, fever, chills, + weakness or fatigue. HEENT: + Recent history of URI with congestion, runny nose. Eyes: No visual loss, blurred vision, double vision or yellow sclerae. Ears, Nose, Throat: No hearing loss. SKIN: No rash or itching, lesions, wounds. CARDIOVASCULAR: No chest pain, chest pressure or chest discomfort, palpitations, edema, orthopnea, syncopal events. RESPIRATORY: + Dyspnea, no markedly productive cough but did have recent history of cough during prior outside facility presentation. No marked wheezing or hemoptysis. GASTROINTESTINAL: + Anorexia. No nausea, vomiting or diarrhea, abdominal pain, melena, BRBPR. GENITOURINARY: No dysuria, frequency, urgency or retention. NEUROLOGICAL: No headache, dizziness, syncope, paralysis, ataxia, numbness or tingling in the extremities, focal weakness, change in bowel or bladder control, seizure. MUSCULOSKELETAL: No muscle, back pain, joint pain or stiffness. HEMATOLOGIC: + Chronic anemia, easy bleeding/bruising. LYMPHATICS: No enlarged nodes. No history of splenectomy. PSYCHIATRIC: No history of depression or anxiety. ENDOCRINOLOGIC: + reports of sweating, cold or heat intolerance. No polyuria or polydipsia. ALLERGIES: No history of asthma, hives, eczema or rhinitis. Physical Exam Narrative GENERAL: Frail looking HEENT: Atraumatic; normocephalic EYES; Anicteric, Normal Conjunctiva NECK; supple, normal thyroid, RESPIRATORY: Diminished to auscultation CARDIOVASCULAR: Regular S1 S2, GI: soft, normoactive bowel sounds, : No Renal angle tenderness; EXTREMITIES: No edema, no clubbing, MUSCULOSKELETAL: no muscle wasting NEURO: Awake; no lateralizing signs. SKIN: No Rash PSYCH; Flat affect Medical Records Data Medical Nutrition Assessment Dietitian: Malnutrition Criteria Met Start: 06/19/23 16:32 Freq: Status: Active Protocol: Document 06/19/23 16:32 (Rec: 06/19/23 16:32 [id number]) Nutrition Malnutrition Evidence of Malnutrition Exists Yes Malnutrition (severe): Acute Illness/Injury Evidenced By Suboptimal Energy Intake ( Severe),Weight Loss (Severe) Clinical Problem Acute Disease or Injury Related Malnutrition Etiology severe, acute malnutrition related to inadequate energy intake Signs/Symptoms as evidenced by estimated PO intake meeting <50% of estimated energy needs > 5 days, unintentional 9% wt loss < 2 months Status Active Problem Recommendation Dietitian Recommendations/Changes regular diet given evidence of malnutrition; 240mL ensure clear TID w/ meals for additional nutrition if consumed Lab / Micro Data 06/19/23 04:40 06/19/23 04:40 Labs: Laboratory Results - last 24 hr 06/18/23 17:20: Ferritin 3009 H, Vitamin B12 1380 H, Folate 15.30, Procalcitonin 0.62 H 06/18/23 17:30: MRSA (PCR) Negative 06/19/23 04:40: WBC 38.5 H*, RBC 1.87 L, Hgb 6.1 L, Hct 18.8 L, MCV 100.5 H, MCH 32.6 H, MCHC 32.4, RDW Std Deviation 52.3 H, RDW Coeff of Bryanna 14.2, Plt Count 532 H, MPV 9.7, Immature Gran % (Auto) 1.800 H, Neut % (Auto) 89.4 H, Lymph % (Auto) 4.5 L, Bartholomew % (Auto) 3.7, Eos % (Auto) 0.3, Baso % (Auto) 0.3, Absolute Neuts (auto) 34.4 H, Absolute Lymphs (auto) 1.72, Nucleated RBC % 0, Diff Path Review June, Hypochromasia 2+, Sodium 140, Potassium 3.0 L, Chloride 108 H, Carbon Dioxide 22.0, Anion Gap 10, BUN 7, Creatinine 0.46 L, Estim Creat Clear Calc 111.84, Est GFR (MDRD) Af Amer 180, Est GFR (MDRD) Non-Af 149, BUN/Creatinine Ratio 15.4, Glucose 116 H, Calcium 8.2 L, Iron 15 L, TIBC 176 L, Iron Saturation 8.5 L, Ferritin 2727 H, Total Bilirubin 0.50, AST 36, ALT 31, Alkaline Phosphatase 118 H, Total Protein 5.6 L, Albumin 1.7 L, Globulin 3.9, Albumin/Globulin Ratio 0.4 L, Vitamin B12 1038 H 06/19/23 14:30: Blood Type A POSITIVE, Antibody Screen NEGATIVE, Crossmatch See Detail Micro: Microbiology 06/19/23 11:00 Stool Stool Occult Blood (DOMINGO) - Final Occult Blood Positive 06/18/23 13:50 Urine, Catheterized Urine Culture - Preliminary Culture exhibits no growth. 06/18/23 17:54 Mucosa - Nasopharyngeal Respiratory Panel (PCR) - Final 06/18/23 13:50 Urine, Clean Catch Legionella Antigen - Final 06/18/23 13:50 Urine, Clean Catch Streptococcus pneumoniae Antigen (M - Final 06/18/23 13:32 Mucosa - Nose SARS-CoV-2, Influenza & RSV (PCR) - Final Imaging Radiology Impression Chest/Abdomen/Pelvis CT 06/19/23 08:17 IMPRESSION: 3.7 cm x 3.3 cm mass in the lateral aspect of the right upper lobe. 5.6 mm faint nodule seen in the posterior aspect of the right upper lobe on axial image #23. There is a 4.5 cm x 4 cm x 5 cm heterogeneous mass in the distal ileum. Bladder wall thickening although bladder is not completely distended at this time. Electronically Signed: Tomas Palmer MD at 12:32 EDT , Assessment & Plan Assessment/Plan (1) Hypotension: PLAN: Plan The patient is a 57 y/o F with history of fatigue, weakness, confusion and hypertension referred from her pulmonary office with history of recent admission to [facility] and at that time diagnosed with lung mass with new office visit for evaluation of this new mass. She was also discovered to have a significant anemia and a mass in the distal ileum. Significant anemia. Agree with blood transfusion. She should undergo an upper endoscopy to evaluate upper GI tract to look for signs and symptoms of acute on chronic GI blood loss. Currently at this time she is microcytic. She has a reactive thrombocytosis possibly secondary to leukocytosis and or GI blood loss. Acute Encephalopathy, Multifactorial, associated with Possible Acute RUL PNA complicated by recent Lung Mass/SB mass with Underlying malignancy Abnormality in the ileum. She should undergo colonoscopy to evaluate her lower GI tract for lymphoma, adenocarcinoma, carcinoid. She was explained alternatives, risk, benefits including outstanding bleeding, infection, sepsis, perforation, need for emergent urgent . She have an ASA of 3. Charges/Coding Visit Charges Inpatient E&M: 45055 Init Hosp L3
[2023-06-19] MEDS: Bisacodyl 5 MG Tablet 20 MG PO (18:43)
[2023-06-19] MEDS: Phenobarbital 32.4 MG Tablet 64.8 MG PO ×2 (18:44→22:54)
[2023-06-19] MEDS: Polyethylene Glycol 3350 BOWEL PREP PO (20:33)
--- NOTE | 2023-06-19 22:15 | NURSING ---
Pt refusing to partake in bowel prep for colonoscopy tomorrow 06/19. Pt was explained to on why she was getting lower scope and pt acknowledges and continues to refuse bowel prep, Dr. Clement notified, and will be prepped for lower scope via NG for colonoscopy on Thursday.
[2023-06-19 23:03] LABS: Internal QC Validated? YES +Cl - CLEAR BKGD; Pregnancy, Urine Negative Negative
[2023-06-19 23:21] LABS: Hematocrit 24.1 % (37-47); Hemoglobin 7.9 g/dL (12.0-15.0)
[2023-06-20] VITALS (15 sets, daily range): BP systolic 90–124; BP diastolic 49–66; PULSE 89–117; RESP 15–24; TEMP 36.2–37.9; O2SAT 93–100; BMI 21.4
[2023-06-20] MEDS: Phenobarbital 32.4 MG Tablet 64.8 MG PO ×5 (02:13→21:18)
[2023-06-20 04:07] LABS: Absolute Lymphocyte Count 1.94 X10^3/uL (0.83-4.51); Absolute Neutrophil Count 29.7 X10^3/uL (2.0-7.7); Basophil# 0.15 X10^3/uL; Basophil% 0.4 % (0-1); Eosinophil# 0.13 X10^3/uL; Eosinophils% 0.4 % (0-5); Hematocrit 21.5 % (37-47); Hemoglobin 7.2 g/dL (12.0-15.0); Lymphocyte # 1.94 X10^3/ul (0.83-4.51); Lymphocyte % 5.6 % (19-41); Mean Corp Hgb Conc 33.5 g/dL (32-36); Mean Corpuscular Hgb 32.1 pg (27.0-32.0); Mean Platelet Vol. 9.2 fl (6.2-12.0); Monocyte# 1.72 X10^3/uL; NRBC Flagged by Analyzer 0 % (0-5); Neutrophil # 29.69 X10^3/uL (2.7-7.7); Neutrophil % 86.2 % (47-70); POSITIVE COUNT YES; POSITIVE DIFFERENTIAL YES; Platelet Count 510 K/mm3 (150-450); RBC Distribution Width CV 14.5 % (11.6-14.6); RBC Distribution Width SD 50.4 fl (35.1-43.9); Red Blood Count 2.24 M/mm3 (4.2-5.4)
[2023-06-20 04:14] LABS: Differential Indicated SCAN CRITERIA MET; White Blood Count 34.5 K/mm3 (4.4-11.0)
[2023-06-20 04:35] LABS: Anion Gap 7 (5-15); BUN 3 mg/dL (7-18); BUN/Creat Ratio 6.4 RATIO (10-20); Calcium,Total 8.4 mg/dL (8.5-10.1); Chloride 110 mmol/L (98-107); Creatinine, Serum 0.47 mg/dL (0.55-1.02); EST Glomerular Filtration Rate 144 mL/min (>60); Est Glom Filt Rate - Afr Amer 174 mL/min (>60); Estimated Creatinine Clearance 111.29 ml/min; Glucose 115 mg/dL (74-106); Magnesium 2.1 mg/dL (1.6-2.6); Phosphorus 2.5 mg/dL (2.5-4.9); Potassium 3.5 mmol/L (3.5-5.1); Sodium Level 139 mmol/L (136-145); Vancomycin, Trough Level 9.2 ug/mL (5.0-15.0)
[2023-06-20 05:11] LABS: Differential Comment SCANNED
--- NOTE | 2023-06-20 05:45 | PCM.RX.CS ---
Consult Antibiotic Management Pharmacy has been consulted to manage selected antibiotic: Vancomycin Type of Intervention Type of Consult: Follow-up Labs Labs: Sodium 139 mmol/L (136-145) 06/20/23 03:50 Potassium 3.5 mmol/L (3.5-5.1) 06/20/23 03:50 Chloride 110 mmol/L (98-107) H 06/20/23 03:50 Carbon Dioxide 22.0 mmol/L (21.0-32.0) 06/20/23 03:50 Anion Gap 7 (5-15) 06/20/23 03:50 BUN 3 mg/dL (7-18) L 06/20/23 03:50 Creatinine 0.47 mg/dL (0.55-1.02) L 06/20/23 03:50 Est GFR (MDRD) Af Amer 174 mL/min (>60) 06/20/23 03:50 Est GFR (MDRD) Non-Af 144 mL/min (>60) 06/20/23 03:50 BUN/Creatinine Ratio 6.4 RATIO (10-20) L 06/20/23 03:50 Glucose 115 mg/dL (74-106) H 06/20/23 03:50 Vancomycin Trough 9.2 ug/mL (5.0-15.0) 06/20/23 03:50 Microbiology Microbiology: Microbiology 06/19/23 11:00 Stool Stool Occult Blood (DOMINGO) - Final Occult Blood Positive 06/18/23 13:50 Urine, Catheterized Urine Culture - Preliminary Culture exhibits no growth. 06/18/23 17:54 Mucosa - Nasopharyngeal Respiratory Panel (PCR) - Final 06/18/23 13:50 Urine, Clean Catch Legionella Antigen - Final 06/18/23 13:50 Urine, Clean Catch Streptococcus pneumoniae Antigen (M - Final 06/18/23 13:32 Mucosa - Nose SARS-CoV-2, Influenza & RSV (PCR) - Final Goal Trough Goal Trough: 15-20 mcg/mL Pharmacy Plan for Drug Dosing Pharmacy Plan for Drug Dosing: Pharmacy Service will continue to monitor and adjust dosing as required. TROUGH 9.2 @ 12.5 HOURS. INCREASE TO 1250MG Q12 AND FOLLOW UP TROUGH PRIOR TO 4TH DOSE Follow-Up Labs Follow-Up Labs: Trough: Vancomycin Date/Time Labs Ordered Labs to be done on [date and time ordered]: 06/20 @ 1530
[2023-06-20] MEDS: Vancomycin HCl 1,250 MG in 0.9% Normal Saline (250mL Bag) 250 ML 167 MG IV ×2 (05:50→16:15)
[2023-06-20] MEDS: Piperacil/Tazobactam 3.375 GM in 0.9% Normal Saline (50mL MB+) 50 ML IV ×3 (05:50→21:19)
[2023-06-20] MEDS: Magnesium Chloride 64 MG Delay Rel.Tablet 128 MG PO ×3 (05:50→21:18)
--- NOTE | 2023-06-20 05:55 | EKG12_ITS ---
Test Reason : am ekg Blood Pressure : / mmHG Vent. Rate : 105 BPM Atrial Rate : 105 BPM P-R Int : 138 ms QRS Dur : 068 ms QT Int : 340 ms P-R-T Axes : 051 013 075 degrees QTc Int : 449 ms Sinus tachycardia Otherwise normal ECG Confirmed by DUANE SANDOVAL, GERARDO ([id number]), editor school photograph MARIELENA AC ([id number]) on 06/29/2023 1:12:19 PM Referred By: Rosendo Confirmed By:RIO ZEPEDA MD
[2023-06-20] MEDS: Ipratropium/Albuterol Sulfate 3 ML AMPUL.NEB INHALATION ×3 (07:14→19:23)
--- NOTE | 2023-06-20 07:16 | MRI_ITS ---
ACR Level 3 findings have been noted. An addendum which confirms receipt of the report will follow. HISTORY: Encephalopathy, lung mass. TECHNIQUE: Multiplanar and multisequence MR images of the brain were obtained before and after the intravenous administration of 10 cc Clariscan. 1041 images. COMPARISON: CT 06/18/2023. FINDINGS: BRAIN PARENCHYMA: Multiple small foci of restricted diffusion in the right posterior frontal cortex, parietal cortex, right herring radiata, right basal ganglia, right temporal lobe, and right occipital cortex with corresponding T2 FLAIR signal abnormality. Old left basal ganglia lacunar infarct. Mild periventricular white matter changes. No acute intracranial hemorrhage identified. No enhancing lesion with limited evaluation due to motion artifact on the postcontrast imaging. CSF SPACES: Generalized volume loss. No significant midline shift or other mass effect.No extra-axial fluid collection. VASCULAR SYSTEM: Major intracranial flow voids are maintained. PARANASAL SINUSES AND MASTOID AIR CELLS: No significant air fluid levels. ORBITS: Symmetric contents. MRI/Brain W/WO Contrast IMPRESSION: Multiple small acute right cerebral and basal ganglia infarcts, likely embolic in etiology. Mild chronic involutional and white matter changes. Motion artifact. No evidence for enhancing intracranial mass. Electronically Signed: Maritza Lyn MD at 13:13 EDT ,
--- NOTE | 2023-06-20 07:19 | PN.HOSP_ITS ---
Reason for Visit Reason for Visit: Diagnoses Hypotension, unspecified (06/18/23) Subjective Subjective Patient did experience intermittent episodes of confusion during the evening given her history of alcohol use patient was started on phenobarb taper. Also ordered MRI of the brain with and without contrast given the finding of a lung mass. Patient was also seen in consultation by GI with recommendations for patient to undergo endoscopic evaluation both upper and lower Objective Data Objective Data Vital Signs: Vital Signs Temp Pulse Resp BP Pulse Ox O2 Del Method 97.2 F L 100 24 H 109/54 L 94 Room Air 06/20/23 06:00 06/20/23 07:15 06/20/23 07:15 06/20/23 06:00 06/20/23 07:15 06/20/23 07:15 Oxygen Delivery Method Room Air Weight: 56.518 kg Body Mass Index (BMI) 21.4 Intake & Output: Intake and Output for Last 24 Hours 06/18/23 06/19/23 06/20/23 23:59 23:59 23:59 Intake Total 2107.5 / 2107.5 1671 / 1771 150 / 150 Output Total 110 / 110 625 / 625 Balance / 1046 / 1146 150 / 150 Medical Nutrition Assessment Dietitian: Malnutrition Criteria Met Start: 06/19/23 16:32 Freq: Status: Active Protocol: Document 06/19/23 16:32 AG (Rec: 06/19/23 16:32 [id number]) Nutrition Malnutrition Evidence of Malnutrition Exists Yes Malnutrition (severe): Acute Illness/Injury Evidenced By Suboptimal Energy Intake ( Severe),Weight Loss (Severe) Clinical Problem Acute Disease or Injury Related Malnutrition Etiology severe, acute malnutrition related to inadequate energy intake Signs/Symptoms as evidenced by estimated PO intake meeting <50% of estimated energy needs > 5 days, unintentional 9% wt loss < 2 months Status Active Problem Recommendation Dietitian Recommendations/Changes regular diet given evidence of malnutrition; 240mL ensure clear TID w/ meals for additional nutrition if consumed Lab / Micro Data 06/20/23 03:50 06/20/23 03:50 Labs: Laboratory Results - last 24 hr 06/18/23 12:20: Diff Path Review Reviewed 06/19/23 04:40: Diff Path Review May foll, Hypochromasia 2+, Iron 15 L, TIBC 176 L, Iron Saturation 8.5 L, Ferritin 2727 H, Vitamin B12 1038 H 06/19/23 14:30: Blood Type A POSITIVE, Antibody Screen NEGATIVE, Crossmatch See Detail 06/19/23 22:44: Urine Test Negative 06/19/23 23:14: Hgb 7.9 L, Hct 24.1 L 06/20/23 03:50: WBC 34.5 H*, RBC 2.24 L, Hgb 7.2 L, Hct 21.5 L, MCV 96.0, MCH 32.1 H, MCHC 33.5, RDW Std Deviation 50.4 H, RDW Coeff of Bryanna 14.5, Plt Count 510 H, MPV 9.2, Immature Gran % (Auto) 2.400 H, Neut % (Auto) 86.2 H, Lymph % (Auto) 5.6 L, [place] % (Auto) 5.0, Eos % (Auto) 0.4, Baso % (Auto) 0.4, Absolute Neuts (auto) 29.7 H, Absolute Lymphs (auto) 1.94, Nucleated RBC % 0, Differential Comment SCANNED, Diff Path Review June, Sodium 139, Potassium 3.5, Chloride 110 H, Carbon Dioxide 22.0, Anion Gap 7, BUN 3 L, Creatinine 0.47 L, Estim Creat Clear Calc 111.29, Est GFR (MDRD) Af Amer 174, Est GFR (MDRD) Non-Af 144, BUN/Creatinine Ratio 6.4 L, Glucose 115 H, Calcium 8.4 L, Phosphorus 2.5, Magnesium 2.1, Vancomycin Trough 9.2 Micro: Microbiology 06/18/23 12:35 Blood Culture (Wb) - Right Wrist Blood Culture - Preliminary No growth in 48 hours. 06/18/23 12:20 Blood Culture (Wb) - Arm Left Blood Culture - Preliminary No growth in 48 hours. 06/19/23 11:00 Stool Stool Occult Blood (DOMINGO) - Final Occult Blood Positive 06/18/23 13:50 Urine, Catheterized Urine Culture - Preliminary Culture exhibits no growth. 06/18/23 17:54 Mucosa - Nasopharyngeal Respiratory Panel (PCR) - Final 06/18/23 13:50 Urine, Clean Catch Legionella Antigen - Final 06/18/23 13:50 Urine, Clean Catch Streptococcus pneumoniae Antigen (M - Final 04/18/24 13:32 Mucosa - Nose SARS-CoV-2, Influenza & RSV (PCR) - Final Radiography Diagnostic Testing: Radiology Impression Chest/Abdomen/Pelvis CT 06/19/23 08:17 IMPRESSION: 3.7 cm x 3.3 cm mass in the lateral aspect of the right upper lobe. 5.6 mm faint nodule seen in the posterior aspect of the right upper lobe on axial image #23. There is a 4.5 cm x 4 cm x 5 cm heterogeneous mass in the distal ileum. Bladder wall thickening although bladder is not completely distended at this time. Electronically Signed: Tomas Palmer MD at 12:32 EDT , Physical Exam Narrative GENERAL: Frail looking HEENT: Atraumatic; normocephalic EYES; Anicteric, Normal Conjunctiva NECK; supple, normal thyroid, RESPIRATORY: Diminished to auscultation CARDIOVASCULAR: Regular S1 S2, GI: soft, normoactive bowel sounds, : No Renal angle tenderness; EXTREMITIES: No edema, no clubbing, MUSCULOSKELETAL: no muscle wasting NEURO: Awake; no lateralizing signs. 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 Patient was recently diagnosed with a pulmonary mass and is currently being worked up. Had recently been treated for pneumonia with cefdinir 1. Acute encephalopathy ? Etiology not clear. Patient underwent evaluation with CT of the head which was negative for acute CVA ? 06/20/2023;Patient did experience intermittent episodes of confusion during the evening given her history of alcohol use patient was started on phenobarb taper. Also ordered MRI of the brain with and without contrast given the finding of a lung mass. 2. Right upper lobe pneumonia -?? Postobstructive pneumonia patient has significant leukocytosis. Patient started on Zosyn and vancomycin to cover for multidrug-resistant organisms ? 06/20/2023; CT of the abdomen pelvis and chest did not show 3.7 cm x 3.3 cm mass in the lateral aspect of the right upper lobe. 5.6 mm faint nodule seen in the posterior aspect of the right upper lobe on axial image #23.There is a 4.5 cm x 4 cm x 5 cm heterogeneous mass in the distal ileum. Bladder wall thickening although bladder is not completely distended at this time.. An order was given for patient to undergo CT-guided biopsy on 06/22/2023 3. Lung mass ? CT of the abdomen pelvis and chest ordered for subsequent eval plan is for patient to follow-up with pulmonary medicine when medically stable 4. Hypertension - Blood pressure controlled, home medications continued with dose adjustment as needed 5. Hypokalemia -Corrected per protocol, repeat labs ordered for a.m. 6. Anemia - Secondary to chronic disorder/underlying malignancy monitoring H&H and transfuse if patient becomes symptomatic or hemoglobin falls below 7. With the patient hemoglobin being low at 6.1 did undertake iron studies, B12 as well as ferritin levels and order was given for patient to be transfused 1 unit PRBC ? 06/20/2023; patient was seen by Dr. Clement with GI recommendations for patient to undergo both upper and lower endoscopic evaluation 7. COPD with acute exacerbation - Patient started on bronchodilator treatment, systemic steroid as well as anti biotic therapy. Patient placed on oxygen titrated to keep saturation greater than 90. 8. Tobacco dependence - Counseled on cessation, offered nicotine patch for tobacco cravings 9. CT evidence of old lacunar infarct ? Patient was started on antiplatelet therapy with aspirin held given her signi ficant anemia 10. DVT prophylaxis ? Patient has been started on enoxaparin discontinued given her significant anemia Time spent in the patient's overall evaluation,decision-making process, review o f diagnostic data, adjustment of management, discussion with other providers, nursing nursing and ancillary staff involved in patient's care documentation, 50 Minutes Charges/Coding Visit Charges Inpatient E&M: 11122 [facility] Hosp L3
--- NOTE | 2023-06-20 09:35 | EGD_PTH ---
PATIENT: CARL PERALTA LOC: [facility] U#:[id number] AGE/SX: 57/F ROOM: [facility] RE06/18/[address]: Dr. Boone Vinson MD : 1965 BED: 1 DIS: 06/26/2023 SPEC #: [id number] RECD: 06/22/23 10:01 STATUS: CEDRICK REQ #: [id number] VIVIANE: 06/20/23 09:[address]: Jose Clement DEPT: SURGICAL PATHOLOGY RECD BY: Lu Paredes ENTERED: 06/22/23 10:57 SP TYPE: EGD BIOPSY OTHR DR: MD Dr. Arlen Barrera MD Archana Hinduja, MD Dr. Allison Jordan, DO Dr. Autumn L White, MD Dr. Alicia Zha, MD Danielle Becker, MD Dr. Deepak Gulati, MD Dr. David Kittoe, MD Dr. Eric Turney, MD Dr. Gabriele Pedicelli, MD Dr. Hera Kamdar, MD Dr. Jan Bittar, MD Dr. James Burke, MD Jesse Mindel, MD RAVEN Kaiser MD Margaret Beigel, MD Dr. Matthew Gusler, MD Dr. Maryam Mian, MD Dr. Mohamed Ridha, MD Dr. Mhd Ezzat Zaghlouleh, MD Nabil Khandker, MD Dr. Prakash Chand, MD Dr. Peter Robinson, MD Dr. Rahsaan Friend, DO Dr. Rami Ibrahim, MD Dr. Sushil Lakhani, MD Sarita Maturu, MD Dr. Vivien Lee, MD Yousef Hannawi, MD No Primary Care Phys Tissues: Gastric mucous membrane Procedures: Surgery Specimen Level IV Comments: @ Ordering doctor for YUNG edited from to @ by MARTITA at 06/22/23 120 @ Submitting doctor edited from to @ by MARTITA at 06/22/23 1203 HEADER OPERATION: EGD with biopsy PRE-OP DIAGNOSIS: Anemia, GI bleed TISSUE SUBMITTED: Gastric ulcer biopsy MICROSCOPIC DIAGNOSIS Gastric ulcer, biopsy: Fragments of gastric mucosa with ulceration, acute and chronic inflammation. See comment. Pippa 06/23/2023 COMMENT The results of immunohistochemistry for Helicobacter pylori will be reported separately ([id number]). MICROSCOPIC DESCRIPTION Slides are reviewed. GROSS DESCRIPTION Received in fixative is one container labeled with the patient's name and designated Gastric ulcer biopsy. The specimen consists of two irregular fragments of light brito soft tissue that in aggregate measure 0.6 x 0.3 x 0.1 cm. The specimen is totally submitted in one cassette. Pippa 06/22/2023 TC:2 CPT:15614
--- NOTE | 2023-06-20 09:35 | IMM_PTH ---
PATIENT: CARL PERALTA LOC: [facility] U#:[id number] AGE/SX: 57/F ROOM: [facility] RE06/18/[address]: Dr. Boone Vinson MD : 1965 BED: 1 DIS: 06/26/2023 SPEC #: [id number] RECD: 06/22/23 12:03 STATUS: SOUT REQ #: [id number] VIVIANE: 06/20/23 09:[address]: Jose Clement DEPT: IMMUNOHISTOCHEMISTRY RECD BY: Joseph Cross ENTERED: 06/22/23 12:03 SP TYPE: IMMUNO OTHR DR: MD Dr. Arlen Barrera MD Archana Hinduja, MD Dr. Allison Jordan, DO Dr. Autumn L White, MD Dr. Alicia Zha, MD Danielle Becker, MD Dr. Deepak Gulati, MD Dr. David Kittoe, MD Dr. Eric Turney, MD Dr. Gabriele Pedicelli, MD Dr. Hera Kamdar, MD Dr. Jan Bittar, MD Dr. James Burke, MD Jesse Mindel, MD RAVEN Kaiser MD Margaret Beigel, MD Dr. Matthew Gusler, MD Dr. Maryam Mian, MD Dr. Mohamed Ridha, MD Dr. Mhd Ezzat Zaghlouleh, MD Nabil Khandker, MD Dr. Prakash Chand, MD Dr. Peter Robinson, MD Dr. Rami Ibrahim, MD Dr. Sushil Lakhani, MD Sarita Maturu, MD Dr. Vivien Lee, MD Yousef Hannawi, MD No Primary Care Phys Tissues: Stomach, NOS Procedures: H Pylori (initial) PHYSICIAN & INSTITUTION [place] [id number] SPECIMEN INFORMATION: Tissue Source: Gastric ulcer biopsy Clinical Info: Anemia, GI bleed Specimen Number: [id number] CPT code: 88113 METHODOLOGY: Deparaffinized sections of prefer/formalin-fixed tissue or PAP/DQ stained slides are incubated with monoclonal/polyclonal antibodies/oligonucleotide probes. Localization is made via biotin free immunoperoxidase method. Appropriate controls are performed and reacted as expected. Results on target cell population are indicated in the following table: RESULTS: ANTIBODY / CLONE RESULT H Pylori (polyclonal) negative These tests were developed and their performance characteristics determined by [facility]. They may not have been cleared or approved by the U.S. Food and Drug Administration. The FDA has determined that such clearance or approval is not necessary. The above immunohistochemical/dualISH markers are ordered and reviewed by the Pathologist. INTERPRETATION: Gastric ulcer, biopsy: Negative for Helicobacter pylori organisms. HARSH/ 06/23/2023
--- NOTE | 2023-06-20 10:34 | OP.CCLET_ITS ---
06/20/2023 No Primary Care Physician Re : Upper GI endoscopy procedure for Tanja Claire Dear Care Physician This procedure was performed on Tuesday, June 20, 2023. My impressions and recommendations are as follows: Impressions : - No gross lesions in the entire esophagus. - Non-bleeding gastric ulcer with no stigmata of bleeding. Biopsied. - Non-bleeding duodenal ulcer with no stigmata of bleeding. Recommendations : - Return patient to [facility] for [facility] care. - Clear liquid diet. - Continue present medications. - Await pathology results. My findings are described in the full procedure note, which is enclosed. If I can be of further assistance, please feel free to contact me at . Sincerely, Jose Clement, 06/20/2023 10:33:19 AM This report has been signed electronically.
--- NOTE | 2023-06-20 10:34 | OP.EGD_ITS ---
Patient Name: Tanja Claire Procedure Date: 06/20/2023 9:06 AM Date of : 1965 Age: 57 Procedure: Upper GI endoscopy Indications: Dyspepsia, Hematochezia, Melena Providers: Jose Clement DO Medicines: Monitored Anesthesia Care Patient Profile: This is a 57 year old female. Refer to note in patient chart for documentation of history and physical. Patient has symptoms. Complications: No immediate complications. Procedure: Pre-Anesthesia Assessment: - Prior to the procedure, a History and Physical was performed, and patient medications and allergies were reviewed. The patient is competent. The risks and benefits of the procedure and the sedation options and risks were discussed with the patient. All questions were answered and informed consent was obtained. Patient identification and proposed procedure were verified by the physician in the pre-procedure area. Mental Status Examination: alert and oriented. Airway Examination: normal oropharyngeal airway and neck mobility. Respiratory Examination: clear to auscultation. CV Examination: normal. Prophylactic Antibiotics: The patient does not require prophylactic antibiotics. Prior Anticoagulants: The patient has taken no anticoagulant or antiplatelet agents. ASA Grade Assessment: II - A patient with mild systemic disease. After reviewing the risks and benefits, the patient was deemed in satisfactory condition to undergo the procedure. The anesthesia plan was to use monitored anesthesia care (MAC). Immediately prior to administration of medications, the patient was re-assessed for adequacy to receive sedatives. The heart rate, respiratory rate, oxygen saturations, blood pressure, adequacy of pulmonary ventilation, and response to care were monitored throughout the procedure. The physical status of the patient was re-assessed after the procedure. After obtaining informed consent, the endoscope was passed under direct vision. Throughout the procedure, the patient's blood pressure, pulse, and oxygen saturations were monitored continuously. The Endoscope was introduced through the mouth, and advanced to the second part of duodenum. The upper GI endoscopy was accomplished without difficulty. The patient tolerated the procedure well. Scope In: 10:25:38 AM Scope Out: 10:29:06 AM Total Procedure Duration Time 0 hours 3 minutes 28 seconds Findings: No gross lesions were noted in the entire esophagus. One non-bleeding linear gastric ulcer with no stigmata of bleeding was found in the gastric antrum. The lesion was 4 mm in largest dimension. Biopsies were taken with a cold forceps for histology. Verification of patient identification for the specimen was done. Estimated blood loss was minimal. One non-bleeding linear duodenal ulcer with no stigmata of bleeding was found in the first portion of the duodenum. Impression: - No gross lesions in the entire esophagus. - Non-bleeding gastric ulcer with no stigmata of bleeding. Biopsied. - Non-bleeding duodenal ulcer with no stigmata of bleeding. Recommendation: - Return patient to [facility] for ongoing care. - Clear liquid diet. - Continue present medications. - Await pathology results. Procedure Code(s): --- Professional --- 44317, Esophagogastroduodenoscopy, flexible, transoral; with biopsy, single or multiple CPT copyright 2021 [employer]. All rights reserved. The codes documented in this report are preliminary and upon certified professional coder review may be revised to meet current compliance requirements. Jose Clement DO 06/20/2023 10:33:19 AM This report has been signed electronically. Number of Addenda: 0 Note Initiated On: 06/20/2023 9:06 AM
[2023-06-20] MEDS: Iron Polysaccharide Complex 150 MG CAPSULE PO (12:50)
[2023-06-20] MEDS: Multivitamins,Ther W-Minerals Tablet 1 TABLET PO (12:50)
[2023-06-20] MEDS: Potassium Chloride Oral Tablet 20 MEQ PO ×2 (12:50→16:13)
[2023-06-20] MEDS: Folic Acid 1 MG Tablet PO (12:51)
[2023-06-20] MEDS: Thiamine Hydrochloride 100 MG Tablet PO (12:53)
--- NOTE | 2023-06-20 13:37 | ECHOD_ITS ---
Reason For Study: TIA/CVA Procedure This was a 2D Doppler, Color Flow transthoracic echocardiogram. Exam performed portable in patient room. Left Ventricle Normal LV size. The estimated ejection fraction is 65 %. No evidence for diastolic dysfunction. No regional wall motion abnormalities noted. Right Ventricle Normal RV size. Normal systolic function. Atria Normal left atrium. Normal right atrium. No doppler evidence for ASD. Bubble contrast study negative for right to left interatrial shunt. Mitral Valve There is no mitral valve stenosis. Trivial mitral valve insufficiency. Tricuspid Valve There is no tricuspid stenosis. Trivial tricuspid valve insufficiency. Unable to estimate RV systolic pressure due to insufficient tricuspid regurgitant envelope. Aortic Valve Trisinus/trileaflet aortic valve. There is no aortic stenosis. No aortic valve insufficiency. Pulmonic Valve There is no pulmonic valvular stenosis. No pulmonic valve insufficiency. Great Vessels Normal aortic root. Pericardium/Pleural No pericardial effusion. Medication Performed a rapid injection of agitated mix of 9 cc saline and 1cc air to assess for atrial septal defect. MMode/2D Measurements & Calculations LVIDd: 3.7 cm IVSd: 0.90 cm Ao root diam: 3.3 cm LVIDs: 2.3 cm LVPWd: 0.79 cm LA dimension: 4.1 cm FS: 37.8 % LAV(MOD-bp): 54.8 ml LA A4 area: 18.9 cm2 TAPSE: 1.8 cm LAV(MOD-bp) Indexed: 34.3 ml/m2 LAV(MOD-sp2): 62.2 ml LAV(MOD-sp4): 48.4 ml Time Measurements MV dec time: 0.22 sec Doppler Measurements & Calculations MV E max robbie: 118.9 cm/sec Lat Peak E' Robbie: 13.8 cm/sec Med Peak E' Robbie: 11.1 cm/sec MV A max robbie: 83.1 cm/sec E/E' lat: 8.6 E/E' med: 10.7 MV E/A: 1.4 MV V2 max: 130.1 cm/sec MV P1/2t max robbie: 139.8 cm/sec Ao V2 max: 155.1 cm/sec MV max P.8 mmHg MV P1/2t: 59.2 msec Ao max P.6 mmHg MV V2 mean: 78.9 cm/sec MV dec slope: 691.2 cm/sec2 MV mean P.0 mmHg MV V2 VTI: 22.4 cm MVA(P1/2t): 3.7 cm2 LV V1 max: 118.1 cm/sec PA V2 max: 88.4 cm/sec TR max robbie: 275.6 cm/sec LV V1 max P.6 mmHg TR max P.4 mmHg ECHO/Echo Complete Interpretation Summary The estimated ejection fraction is 65 %. No evidence for diastolic dysfunction. Trivial mitral valve insufficiency. Ordering Physician: Parag Robbins Performed By: Andrea Camp RCS
--- NOTE | 2023-06-20 14:22 | CT_ITS ---
HISTORY: Neuro deficit, acute, stroke suspected. TECHNIQUE: Noncontrast axial images were obtained of the brain. Subsequently, routine carotid and [place] angiogram protocol was performed after the intravenous administration of 75 mL Isovue 370. NASCET criteria using the distal ICAs for comparison were used for evaluation of stenoses. 3D reconstructions were reviewed. A radiation dose optimization technique was used for this scan .2244 images. COMPARISON: MRI same day, CT 06/18/2023. FINDINGS: BRAIN PARENCHYMA: Chronic vessel ischemic gliosis. Small acute infarcts on recent MRI not well visualized by CT No acute intra-axial hemorrhage. CSF SPACES: Generalized volume loss. No midline shift or other significant mass effect.No acute extra-axial hemorrhage. OTHER: Intact calvarium. No significant air fluid levels in the paranasal sinuses or mastoid air cells. Unremarkable orbits. AORTIC ARCH AND BRANCHES: Atherosclerosis present. RIGHT CCA: Medial retropharyngeal course. Calcified and noncalcified plaque at the bifurcation with at least 60% stenosis. RIGHT ICA: Severe stenosis and near occlusion with string of flow proximally. Otherwise patent with diffusely narrowed caliber. LEFT CCA: Medial retropharyngeal course. No occlusion, significant stenosis or dissection. Calcified and noncalcified plaque at the bifurcation with less than 50% stenosis. LEFT ICA: Mild atherosclerosis at the origin with less than 30% stenosis. No occlusion, significant stenosis or dissection. RIGHT VERTEBRAL ARTERY: Hypoplastic and patent. LEFT VERTEBRAL ARTERY: Dominant and patent. OTHER: Emphysema with incompletely imaged right upper lobe mass and mild mediastinal lymphadenopathy. ICAs: Mild diffuse caliber narrowing of the right internal carotid artery extends intracranially without occlusion. No significant stenosis at the intracranial/visualized segments. Mild calcified plaque at both carotid siphons. ACAs: No significant stenosis at the visualized segments. Anaplastic or absent right A1 segment. MCAs: No significant stenosis at the visualized segments. 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 BASILAR ARTERY: No significant stenosis. VERTEBRAL ARTERIES: No significant stenosis at the intradural/visualized segments. Mild calcified plaque with dominant left vertebral artery. No evidence of intracranial aneurysm or vascular malformation. CT/CTA Head AND Neck W/ Contrast IMPRESSION: No evidence for acute intracranial hemorrhage. No evidence for large vessel occlusion in the [place] region. Severe stenosis and near occlusion of the proximal right internal carotid artery in the neck with string of flow. Otherwise mild diffuse narrowing of the caliber of the right internal carotid artery in the mid to distal neck and intracranial portion without significant stenosis or occlusion. Right lung mass. Electronically Signed: Maritza Lyn MD at 16:01 EDT ,
[2023-06-20 14:58] LABS: Hemoglobin A1c 4.9 % (3.8-5.6)
[2023-06-20] MEDS: 0.9% Normal Saline (1000mL) 1,000 ML 100 ML IV (16:12)
[2023-06-20] MEDS: Pantoprazole Sodium 40 MG Tablet PO (16:15)
--- NOTE | 2023-06-20 19:03 | NURSING ---
son Venu Posada [phone] is concerned patient told him last admit he was going to do holistic meds with her. Son wanted it docmented and updated
[2023-06-20] MEDS: Acetaminophen 325 MG Tablet 650 MG PO (21:18)
[2023-06-20] MEDS: Atorvastatin Calcium 80 MG Tablet PO (21:20)
[2023-06-21] VITALS (10 sets, daily range): BP systolic 102–125; BP diastolic 52–67; PULSE 87–114; RESP 16–28; TEMP 36.5–37.9; O2SAT 90–99; BMI 21.4
--- NOTE | 2023-06-21 | ASPIGT_PTH ---
PATIENT: CARL PERALTA LOC: [facility] U#:[id number] AGE/SX: 57/F ROOM: [facility] RE06/18/[address]: Dr. Boone Vinson MD : 1965 BED: 1 DIS: 06/26/2023 SPEC #: [id number] RECD: 06/22/23 10:26 STATUS: CEDRICK REQ #: [id number] VIVIANE: 06/21/23 00:[address]: Boone Vinson DEPT: SURGICAL PATHOLOGY RECD BY: Froilan Geiger ENTERED: 06/22/23 10:26 SP TYPE: ASP RAD OTHR DR: MD Dr. Arlen Barrera MD Archana Hinduja, MD Dr. Allison Jordan, MD Dr. Zehra Muhammad Dr., MD Danielle Becker, MD Dr. Deepak Gulati, MD Dr. David Kittoe, MD Dr. Eric Turney, MD Dr. Gabriele Pedicelli, MD Dr. Hera Kamdar, MD Dr. Jan Bittar, MD Dr. James Burke, MD Jesse Mindel, MD RAVEN Kaiser MD Margaret Beigel, MD Dr. Matthew Gusler, MD Dr. Maryam Mian, MD Dr. Mohamed Ridha, MD Dr. Mhd Ezzat Zaghlouleh, MD Nabil Khandker, MD Dr. Peter Robinson, MD Dr. Rahsaan Friend, DO MD Dr. Everton Bynum MD Sarita Maturu, MD Dr. Vivien Lee, MD Yousef Hannawi, MD No Primary Care Phys Tissues: Lung, NOS Procedures: FNA Specimen Adequacy Special Stain Group II Surgery Specimen Level IV Imprint (control) HEADER OPERATION: Right lung biopsy PRE-OP DIAGNOSIS: Lung mass TISSUE SUBMITTED: Right lung CT guided, core biopsy MICROSCOPIC DIAGNOSIS Right lung, CT guided core biopsy: Poorly differentiated non-small cell carcinoma, favor adenocarcinoma See comment. SJ/mr 06/23/2023 COMMENT Immunohistochemistry ([id number]) supports the above diagnosis. IHC profile is non-contributory for further classification of the tumor. Molecular studies on the tumor can be performed if clinically indicated. Please notify the laboratory if they are needed. The specimen is evaluated at the time of biopsy by Dr. Reddy. Immediate Evaluation = Malignant cells present derived from non-small cell carcinoma. MICROSCOPIC DESCRIPTION Slides are reviewed. GROSS DESCRIPTION Received in fixative is one container labeled with the patient's name and designated Right lung. The specimen consists of multiple irregular fragments of brito soft tissue that in aggregate measure 1.5 x 0.1 x 0.1 cm. The specimen is totally submitted in one cassette. Two touch imprints are prepared at the time of core biopsy. HARSH/ 06/22/2023 TC:0 CPT:10231,57942
[2023-06-21] MEDS: Vancomycin HCl 1,250 MG in 0.9% Normal Saline (250mL Bag) 250 ML 167 MG IV (04:11)
[2023-06-21] MEDS: Phenobarbital 32.4 MG Tablet 64.8 MG PO (04:11)
[2023-06-21] MEDS: 0.9% Normal Saline (1000mL) 1,000 ML 100 ML IV ×3 (04:11→23:44)
[2023-06-21] MEDS: Magnesium Chloride 64 MG Delay Rel.Tablet 128 MG PO ×3 (05:22→20:21)
[2023-06-21] MEDS: Piperacil/Tazobactam 3.375 GM in 0.9% Normal Saline (50mL MB+) 50 ML IV ×3 (05:22→20:22)
[2023-06-21 05:53] LABS: Absolute Lymphocyte Count 1.95 X10^3/uL (0.83-4.51); Absolute Neutrophil Count 30.9 X10^3/uL (2.0-7.7); Basophil# 0.13 X10^3/uL; Basophil% 0.4 % (0-1); Eosinophil# 0.22 X10^3/uL; Eosinophils% 0.6 % (0-5); Hemoglobin 7.4 g/dL (12.0-15.0); Lymphocyte # 1.95 X10^3/ul (0.83-4.51); Lymphocyte % 5.5 % (19-41); Mean Corp Hgb Conc 32.2 g/dL (32-36); Mean Corpuscular Hgb 32.2 pg (27.0-32.0); Mean Platelet Vol. 9.7 fl (6.2-12.0); Monocyte# 1.64 X10^3/uL; Monocyte% 4.6 % (0-10); NRBC Flagged by Analyzer 0 % (0-5); Neutrophil # 30.88 X10^3/uL (2.7-7.7); Neutrophil % 87.3 % (47-70); POSITIVE COUNT YES; POSITIVE DIFFERENTIAL YES; Platelet Count 574 K/mm3 (150-450); RBC Distribution Width SD 54.7 fl (35.1-43.9)
[2023-06-21 06:12] LABS: Anion Gap 7 (5-15); BUN 4 mg/dL (7-18); Calcium,Total 8.6 mg/dL (8.5-10.1); Chloride 114 mmol/L (98-107); Cholesterol 88 mg/dL (200); Creatinine, Serum 0.57 mg/dL (0.55-1.02); EST Glomerular Filtration Rate 116 mL/min (>60); Est Glom Filt Rate - Afr Amer 140 mL/min (>60); Estimated Creatinine Clearance 91.77 ml/min; Glucose 93 mg/dL (74-106); High Density Lipoprotein 18 mg/dL; Potassium 3.7 mmol/L (3.5-5.1); Sodium Level 142 mmol/L (136-145); Triglycerides 106 mg/dL; Very Low Density Lipoprotein 21 mg/dL (5-40)
[2023-06-21 06:27] LABS: Differential Indicated SCAN CRITERIA MET
[2023-06-21 06:28] LABS: White Blood Count 35.4 K/mm3 (4.4-11.0)
[2023-06-21] MEDS: Ipratropium/Albuterol Sulfate 3 ML AMPUL.NEB INHALATION ×3 (06:51→19:10)
--- NOTE | 2023-06-21 07:50 | PCM.PN.HOSP ---
Reason for Visit Reason for Visit: Diagnoses Hypotension, unspecified (06/18/23) Subjective Subjective Patient has had uneventful past 24 hours underwent EGD as well as MRI and CT angio results as discussed below. Objective Data Objective Data Vital Signs: Vital Signs Temp Pulse Resp BP Pulse Ox O2 Del Method O2 Flow Rate 97.7 F L 96 17 104/55 L 92 Room Air 2 06/21/23 05:35 06/21/23 05:35 06/21/23 05:35 06/21/23 05:35 06/21/23 05:35 06/21/23 05:36 06/21/23 01:40 Oxygen Flow Rate (L/min) 2 Oxygen Delivery Method Room Air Weight: 56.744 kg Body Mass Index (BMI) 21.4 Intake & Output: Intake and Output for Last 24 Hours 06/19/23 06/20/23 06/21/23 23:59 23:59 23:59 Intake Total 1671 / 1771 1040 / 1040 1325 / 1325 Output Total 625 / 625 900 / 900 150 / 150 Balance 1046 / 1146 140 / 140 1175 / 1175 Medical Nutrition Assessment Dietitian: Malnutrition Criteria Met Start: 06/19/23 16:32 Freq: Status: Active Protocol: Document 06/19/23 16:32 AG (Rec: 06/19/23 16:32 [id number]) Nutrition Malnutrition Evidence of Malnutrition Exists Yes Malnutrition (severe): Acute Illness/Injury Evidenced By Suboptimal Energy Intake ( Severe),Weight Loss (Severe) Clinical Problem Acute Disease or Injury Related Malnutrition Etiology severe, acute malnutrition related to inadequate energy intake Signs/Symptoms as evidenced by estimated PO intake meeting <50% of estimated energy needs > 5 days, unintentional 9% wt loss < 2 months Status Active Problem Recommendation Dietitian Recommendations/Changes regular diet given evidence of malnutrition; 240mL ensure clear TID w/ meals for additional nutrition if consumed Lab / Micro Data 06/21/23 04:40 06/21/23 04:40 Labs: Laboratory Results - last 24 hr 06/19/23 23:14: Hemoglobin A1c 4.9 06/21/23 04:40: WBC 35.4 H*, RBC 2.30 L, Hgb 7.4 L, Hct 23.0 L, MCV 100.0 H, MCH 32.2 H, MCHC 32.2, RDW Std Deviation 54.7 H, RDW Coeff of Bryanna 15.0 H, Plt Count 574 H, MPV 9.7, Immature Gran % (Auto) 1.600 H, Neut % (Auto) 87.3 H, Lymph % (Auto) 5.5 L, Anderson % (Auto) 4.6, Eos % (Auto) 0.6, Baso % (Auto) 0.4, Absolute Neuts (auto) 30.9 H, Absolute Lymphs (auto) 1.95, Nucleated RBC % 0, Sodium 142, Potassium 3.7, Chloride 114 H, Carbon Dioxide 21.0, Anion Gap 7, BUN 4 L, Creatinine 0.57, Estim Creat Clear Calc 91.77, Est GFR (MDRD) Af Amer 140, Est GFR (MDRD) Non-Af 116, BUN/Creatinine Ratio 7.0 L, Glucose 93, Calcium 8.6, Triglycerides 106, Cholesterol 88, LDL Cholesterol 49, VLDL Cholesterol 21, HDL Cholesterol 18 L Micro: Microbiology 06/18/23 12:35 Blood Culture (Wb) - Right Wrist Blood Culture - Preliminary No growth in 48 hours. 06/18/23 12:20 Blood Culture (Wb) - Arm Left Blood Culture - Preliminary No growth in 48 hours. 06/19/23 11:00 Stool Stool Occult Blood (DOMINGO) - Final Occult Blood Positive 06/18/23 13:50 Urine, Catheterized Urine Culture - Preliminary Culture exhibits no growth. 06/18/23 17:54 Mucosa - Nasopharyngeal Respiratory Panel (PCR) - Final 06/18/23 13:50 Urine, Clean Catch Legionella Antigen - Final 06/18/23 13:50 Urine, Clean Catch Streptococcus pneumoniae Antigen (M - Final 06/18/23 13:32 Mucosa - Nose SARS-CoV-2, Influenza & RSV (PCR) - Final Radiography Diagnostic Testing: Radiology Impression Brain MRI 06/20/23 07:16 IMPRESSION: Multiple small acute right cerebral and basal ganglia infarcts, likely embolic in etiology. Mild chronic involutional and white matter changes. Motion artifact. No evidence for enhancing intracranial mass. Electronically Signed: Maritza Lyn MD at 13:13 EDT , ADDENDUM: 06/20/23 1333 IMPRESSION: Multiple small acute right cerebral and basal ganglia infarcts, likely embolic in etiology. Mild chronic involutional and white matter changes. Motion artifact. No evidence for enhancing intracranial mass. N.B. : Rebecca Kilgore RN, confirmed on 06/20/2023 13:26:53 (ET) that the healthcare facility has received the radiology report. Electronically Signed: Maritza Lyn MD at 13:13 EDT , Head/Neck CTA 06/20/23 14:22 IMPRESSION: No evidence for acute intracranial hemorrhage. No evidence for large vessel occlusion in the [place] region. Severe stenosis and near occlusion of the proximal right internal carotid artery in the neck with string of flow. Otherwise mild diffuse narrowing of the caliber of the right internal carotid artery in the mid to distal neck and intracranial portion without significant stenosis or occlusion. Right lung mass. Electronically Signed: Maritza Lyn MD at 16:01 EDT , Physical Exam Narrative GENERAL: Frail looking HEENT: Atraumatic; normocephalic EYES; Anicteric, Normal Conjunctiva NECK; supple, normal thyroid, RESPIRATORY: Diminished to auscultation CARDIOVASCULAR: Regular S1 S2, GI: soft, normoactive bowel sounds, : No Renal angle tenderness; EXTREMITIES: No edema, no clubbing, MUSCULOSKELETAL: no muscle wasting NEURO: Awake; difficult to assess motor function given patient being under the effect of phenobarb. 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 Patient was recently diagnosed with a pulmonary mass and is currently being worked up. Had recently been treated for pneumonia with cefdinir 1. Acute encephalopathy ? Etiology not clear. Patient underwent evaluation with CT of the head which was negative for acute CVA ? 06/20/2023;Patient did experience intermittent episodes of confusion during the evening given her history of alcohol use patient was started on phenobarb taper. Also ordered MRI of the brain with and without contrast given the finding of a lung mass. ? 06/21/2023; phenobarb taper discontinued after discussion with patient . The patient has been patient did not drink any alcohol 2 weeks prior to her admission. 2. Right upper lobe pneumonia -?? Postobstructive pneumonia patient has significant leukocytosis. Patient started on Zosyn and vancomycin to cover for multidrug-resistant organisms ? 06/20/2023; CT of the abdomen pelvis and chest did not show 3.7 cm x 3.3 cm mass in the lateral aspect of the right upper lobe. 5.6 mm faint nodule seen in the posterior aspect of the right upper lobe on axial image #23.There is a 4.5 cm x 4 cm x 5 cm heterogeneous mass in the distal ileum. Bladder wall thickening although bladder is not completely distended at this time.. An order was given for patient to undergo CT-guided biopsy on 06/22/2023 3. Lung mass ? CT of the abdomen pelvis and chest ordered for subsequent eval plan is for patient to follow-up with pulmonary medicine when medically stable 4. Acute CVA ? MRI demonstrated Multiple small acute right cerebral and basal ganglia infarcts, likely embolic in etiology. Subsequent evaluation with CT of the head and neck demonstrated Mild chronic involutional and white matter changes. Motion artifact. No evidence for enhancing intracranial mass. No evidence for acute intracranial hemorrhage. No evidence for large vessel occlusion in the [place] region.Severe stenosis and near occlusion of the proximal right internal carotid artery in the neck with string of flow. Otherwise mild diffuse narrowing of the caliber of the right internal carotid artery in the mid to distal neck and intracranial portion without significant stenosis or occlusion. Case discussed with [facility] patient started on antiplatelet therapy as well as statin therapy ordered 2D echo and consultation placed to vascular surgery regarding patient severe carotid artery stenosis 5. Anemia - Secondary to chronic disorder/underlying malignancy monitoring H&H and transfuse if patient becomes symptomatic or hemoglobin falls below 7. With the patient hemoglobin being low at 6.1 did undertake iron studies, B12 as well as ferritin levels and order was given for patient to be transfused 1 unit PRBC ? 06/20/2023; patient was seen by Dr. Clement with GI recommendations for patient to undergo both upper and lower endoscopic evaluation ?06/21/2023; EGD by Dr. Clement on 06/28/2023 for results as below Impressions : - No gross lesions in the entire esophagus. - Non-bleeding gastric ulcer with no stigmata of bleeding. Biopsied. - Non-bleeding duodenal ulcer with no stigmata of bleeding. Recommendations : - [facility] to [facility] care. - Clear liquid diet. - Continue present medications. - Await pathology results. ?Patient is scheduled to undergo colonoscopy on 06/22/2023. 6. Hypertension - Blood pressure controlled, home medications continued with dose adjustment as needed 7. COPD with acute exacerbation - Patient started on bronchodilator treatment, systemic steroid as well as antibiotic therapy. Patient placed on oxygen titrated to keep saturation greater than 90. 8. Tobacco dependence - Counseled on cessation, offered nicotine patch for tobacco cravings 9. CT evidence of old lacunar infarct ? Patient was started on antiplatelet therapy with aspirin held given her significant anemia 10. Hypokalemia -Corrected per protocol, repeat labs ordered for a.m. 11. DVT prophylaxis ? Patient has been started on enoxaparin discontinued given her significant anemia. Initiated SCDs. Plan is to resume Lovenox once colonoscopy does not reveal any evidence of GI bleed Time spent in the patient's overall evaluation,decision-making process, review of diagnostic data, adjustment of management, discussion with other providers, nursing nursing and ancillary staff involved in patient's care documentation, 52 minutes Charges/Coding Visit Charges Inpatient E&M: [id number] [place] [id number]
[2023-06-21] MEDS: Multivitamins,Ther W-Minerals Tablet 1 TABLET PO (09:36)
[2023-06-21] MEDS: Aspirin 81 MG TAB.CHEW PO (09:36)
[2023-06-21] MEDS: Folic Acid 1 MG Tablet PO (09:36)
[2023-06-21] MEDS: Iron Polysaccharide Complex 150 MG CAPSULE PO (09:36)
[2023-06-21] MEDS: Potassium Chloride Oral Tablet 20 MEQ PO ×2 (09:37→17:50)
[2023-06-21] MEDS: Thiamine Hydrochloride 100 MG Tablet PO (09:37)
[2023-06-21] MEDS: Pantoprazole Sodium 40 MG Tablet PO (09:37)
[2023-06-21 10:57] LABS: Differential Comment SCANNED
--- NOTE | 2023-06-21 13:35 | CON.PCM.NE_ITS ---
Assessment and Plan: Stroke Assessment/Plan CARL PERALTA is a 57 F with a history of alcoholism, HTN who presents for evaluation of altered mental status and hypotension. She was sent from pulmonary office to the ED on 06/18/2023 for hypotension and altered mental status. She was diagnosed with pneumonia and she was found to have a lung mass and a mass in the distal ileum. During work up of her encephalopathy, she was found to have multiple acute DWI lesions (strokes) on the right hemisphere for which Neurology/Stroke was consulted. Neurological examination shows confusion, mild neglect and left facial droop. Neuroimaging shows multiple strokes on the right hemisphere associated with severe stenosis (near occlusion/string flow sign) in the R ICA on CTA head and neck. The clinical picture is consistent with symptomatic R ICA stenosis. Strokes could be related to the hemodynamic effect of stenosis (in the setting of hypotension/sepsis at presentation) vs large vessel atherosclerosis with distal embolization: Recommend: 1- Discussed with . Hospitalist Dr. Robbins, recommend assessment for revascularization of the right carotid artery (stent vs CEA). Vascular surgery was consulted at [place]. Surgical timing/options to consider her current ongoing medical conditions. 2- We started ASA 81 mg daily. There are concerns for GI bleeding at presentation (anemia with positive stool for blood testing). EGD was completed yesterday showing none-bleeding ulcers. If it is safe from GI perspective, I recommend adding plavix for a combination of dual antiplatelet agents of 3 week duration or until revascularization decision is made then ASA alone aftewards. 3- Statin, and other stroke measures. 4- Given severe carotid stenosis, please avoid hypotension. May allow permissive hypertension SBP <220 and maintain MAP>70. 5- Mental status is not fully explained by strokes. She was started on phenobarbital taper for history of alcoholism, stopped today. Continue to assess mental status. Potentially acute encephalopathy. But, will also rule out seizures with EEG. 6- Close neurological monitoring. 7- TTE has been ordered. We will follow up on the results. 8- Chemical DVT prophylaxis. 9- Patient was not a candidate for IV thrombolytics (outside time window) and/or thrombectomy (no LVO). [Quick text reminder: .OSUtnk/.OSUnontnk] HPI Consult Data Date of Consult: 06/21/23 HPI Narrative HPI Narrative: CARL PERALTA, is a 57 F who presents for assessment and management of altered mental status, hypotension, and pneumonia. She had a fall at home. She was sent by her [employer] office for management of pneumonia after she was found to have altered mental status and hypotension. She was found to have lung mass and duodenal mass and had EGD for evaluation of GI bleeding due anemia. Work up for AMS showed multiple strokes on the right side of the brain for which neurology was consulted. [facility] Medical History Chronic anemia COPD (chronic obstructive pulmonary disease) Former tobacco use History of alcohol abuse Iron deficiency Lung mass Small bowel mass Home Medications cefdinir 300 mg capsule 300 mg PO Q12H 06/18/23 [History Last Taken 06/17/23] ferrous fumarate 324 mg (106 mg iron) tablet (Ferrocite) 324 mg PO DAILY 06/18/23 [History Last Taken 06/17/23] folic acid 1 mg tablet 1 mg PO DAILY 06/18/23 [History Last Taken 06/17/23] magnesium oxide 400 mg (241.3 mg magnesium) tablet 400 mg PO TID 06/18/23 [History Last Taken 06/17/23] thiamine HCl (vitamin B1) 100 mg tablet 100 mg PO DAILY 06/18/23 [History Last Taken 06/17/23] Allergy/AdvReac Type Severity Reaction Status Date / Time No Known Allergies Allergy Verified 06/18/23 11:51 Family History Mother Heart disease Hypertension Myocardial infarction CAD (coronary artery disease) Father Brain cancer Surgical History History of dental surgery Social History household members: spouse Smoking Status: Current every day smoker tobacco type: cigarettes how long ago did patient quit smoking: Quit 2 wks prior to admission, smoked 1 ppd intermittently since teen. alcohol intake: former details: Sober x 2 weeks, 1/4-1/3 of 1L vodka daily. substance use type: does not use Vital Signs Vital Signs Vital Signs: 06/20/23 14:38 06/20/23 14:38 06/20/23 17:45 Temperature 98.4 F Temperature Source Oral Pulse Rate 98 111 H Pulse Strength Respiratory Rate 20 H 15 Respiratory Effort Respiratory Depth Respiratory Pattern Normal Blood Pressure 124/63 H Blood Pressure Mean 83 Blood Pressure Source Blood Pressure Position Blood Pressure Location Pulse Ox 95 94 Oxygen Delivery Method Room Air Room Air Oxygen Flow Rate (L/min) 06/20/23 19:27 06/20/23 19:27 06/20/23 21:44 Temperature Temperature Source Pulse Rate 117 H Pulse Strength Normal (2+) Respiratory Rate 24 H Respiratory Effort Respiratory Depth Respiratory Pattern Tachypnea Blood Pressure Blood Pressure Mean Blood Pressure Source Blood Pressure Position Blood Pressure Location Pulse Ox 94 Oxygen Delivery Method Room Air Oxygen Flow Rate (L/min) 06/20/23 21:45 06/20/23 22:42 06/20/23 22:54 Temperature 100.2 F H 99.6 F H Temperature Source Oral Oral Pulse Rate 116 H 101 H Pulse Strength Respiratory Rate 17 18 Respiratory Effort Normal Non-Labored Respiratory Depth Normal Respiratory Pattern Normal Blood Pressure 120/60 120/60 Blood Pressure Mean 80 80 Blood Pressure Source Monitor Monitor Blood Pressure Position Semi-Fowlers Semi-Fowlers Blood Pressure Location Right Arm Right Arm Pulse Ox 93 94 Oxygen Delivery Method Nasal Cannula Nasal Cannula Nasal Cannula Oxygen Flow Rate (L/min) 2 2 2 06/20/23 22:56 06/21/23 01:40 06/21/23 05:31 Temperature 99.6 F H 98.1 F 97.7 F L Temperature Source Oral Oral Oral Pulse Rate 101 H 87 96 Pulse Strength Respiratory Rate 17 16 17 Respiratory Effort Respiratory Depth Respiratory Pattern Blood Pressure 120/60 102/58 L 105/55 L Blood Pressure Mean 80 72 71 Blood Pressure Source Monitor Blood Pressure Position Semi-Fowlers Blood Pressure Location Right Arm Pulse Ox 94 98 90 Oxygen Delivery Method Nasal Cannula Nasal Cannula Room Air Oxygen Flow Rate (L/min) 2 2 06/21/23 05:35 06/21/23 05:36 06/21/23 06:51 Temperature 97.7 F L Temperature Source Oral Pulse Rate 96 101 H Pulse Strength Respiratory Rate 17 20 H Respiratory Effort Normal Non-Labored Respiratory Depth Respiratory Pattern Normal Blood Pressure 104/55 L Blood Pressure Mean 71 Blood Pressure Source Monitor Blood Pressure Position Semi-Fowlers Blood Pressure Location Right Arm Pulse Ox 92 Oxygen Delivery Method Room Air Room Air Oxygen Flow Rate (L/min) 06/21/23 06:51 06/21/23 08:53 06/21/23 09:25 Temperature 98.1 F Temperature Source Oral Pulse Rate 110 H Pulse Strength Respiratory Rate 18 Respiratory Effort Respiratory Depth Respiratory Pattern Blood Pressure 117/63 Blood Pressure Mean 81 Blood Pressure Source Monitor Blood Pressure Position Semi-Fowlers Blood Pressure Location Right Arm Pulse Ox 95 95 99 Oxygen Delivery Method Room Air Room Air Oxygen Flow Rate (L/min) Weight Weight: 56.744 kg Body Mass Index (BMI) 21.4 NIHSS NIHSS Nursing Documentation NIHSS Nursing Documentation: NIHSS: Ischemic Stroke/TIA Start: 06/20/23 14:20 Text: For PCU Patients: NIH and Neuro Check every 4 Status: Active hours, PRN and with change in RN caregiver. Freq: [id number] Protocol: Activity Type Activity Date Activity User E-sign Co-sign Detail Recorded Client Recorded Date Recorded By Document 06/21/23 09:25 DS Desktop 06/21/23 09:32 DS 06/21/23 09:25 NIH Stroke Scale [NIHSS] A score of 0 is normal or asymptomatic . Total possible score is 42. Inpatient: RN or Physician to activate a stroke alert for onset of new stroke symptoms or with NIHSS increase >/= 3 points. Following change in neurological status, NIHSS will be performed per physician order or more frequently PRN. -1a. Level of Consciousness Alert; keenly responsive -1b. LOC Questions Answers BOTH questions correctly. -1c. LOC Commands Performs both tasks correctly . -2. Best Gaze Normal -3. Visual No visual loss -4. Facial Palsy Minor paralysis (flattened nasolabial fold , asymmetry on smiling) -5a. Left Arm No drift; arm holds 90 (or 45 ) degrees for full 10 seconds -5b. Right Arm No drift; arm holds 90 (or 45 ) degrees for full 10 seconds -6a. Left Leg Some effort against gravity ; -6b. Right Leg No drift; leg holds 30-degree position for full 5 seconds -7. Limb Ataxia Absent -8. Sensory Normal; no sensory loss -9. Best Language Mild-to- moderate aphasia; -10. Dysarthria Mild-to- moderate dysarthria; -11. Extinction and Inattention No abnormality -Total 5 Query Text:A score of 0 is normal or asymptomatic. Total possible score is 42 . ED: Notify Physician for NIHSS increase by > / = 3 points. Inpatient: RN or Physician to activate a stroke alert for NIHSS increase of > / = 3 points. Coma Scale [Assess] -Eye Opening To Voice -Motor Obeys Commands -Verbal Confused [Total] -Coma Scale Total 13 NIHSS 1a. Level of Consciousness: Not alert; 1b. LOC Questions: Answers one question correctly. 1c. LOC Commands: Performs both tasks correctly. 2. Best Gaze: Normal 3. Visual: No visual loss 4. Facial Palsy: Minor paralysis (flattened nasolabial fold, asymmetry on smiling) 5a. Left Arm: Drift; arm drifts downward but doesn?t hit the bed 5b. Right Arm: No drift; arm holds 90 (or 45) degrees for full 10 seconds 6a. Left Leg: Some effort against gravity; 6b. Right Leg: Some effort against gravity; 7. Limb Ataxia: Absent 8. Sensory: Normal; no sensory loss 9. Best Language: No aphasia; normal 10. Dysarthria: [id number] dysarthria; 11. Extinction and Inattention: Visual, tactile, auditory, spatial, or personal inattention Total: 10 Medical Records Data Medical Nutrition Assessment Dietitian: Malnutrition Criteria Met Start: 06/19/23 16:32 Freq: Status: Active Protocol: Document 06/19/23 16:32 (Rec: 06/19/23 16:32 [id number]) Nutrition Malnutrition Evidence of Malnutrition Exists Yes Malnutrition (severe): Acute Illness/Injury Evidenced By Suboptimal Energy Intake ( Severe),Weight Loss (Severe) Clinical Problem Acute Disease or Injury Related Malnutrition Etiology severe, acute malnutrition related to inadequate energy intake Signs/Symptoms as evidenced by estimated PO intake meeting <50% of estimated energy needs > 5 days, unintentional 9% wt loss < 2 months Status Active Problem Recommendation Dietitian Recommendations/Changes regular diet given evidence of malnutrition; 240mL ensure clear TID w/ meals for additional nutrition if consumed Lab / Micro Data 06/21/23 04:40 06/21/23 04:40 Labs: Laboratory Results - last 24 hr 06/19/23 23:14: Hemoglobin A1c 4.9 06/21/23 04:40: WBC 35.4 H*, RBC 2.30 L, Hgb 7.4 L, Hct 23.0 L, MCV 100.0 H, MCH 32.2 H, MCHC 32.2, RDW Std Deviation 54.7 H, RDW Coeff of Bryanna 15.0 H, Plt Count 574 H, MPV 9.7, Immature Gran % (Auto) 1.600 H, Neut % (Auto) 87.3 H, Lymph % (Auto) 5.5 L, [place] % (Auto) 4.6, Eos % (Auto) 0.6, Baso % (Auto) 0.4, Absolute Neuts (auto) 30.9 H, Absolute Lymphs (auto) 1.95, Nucleated RBC % 0, Differential Comment SCANNED, Diff Path Review June, Sodium 142, Potassium 3.7, Chloride 114 H, Carbon Dioxide 21.0, Anion Gap 7, BUN 4 L, Creatinine 0.57, Estim Creat Clear Calc 91.77, Est GFR (MDRD) Af Amer 140, Est GFR (MDRD) Non-Af 116, BUN/Creatinine Ratio 7.0 L, Glucose 93, Calcium 8.6, Triglycerides 106, Cholesterol 88, LDL Cholesterol 49, VLDL Cholesterol 21, HDL Cholesterol 18 L Micro: Microbiology 06/18/23 13:50 Urine, Catheterized Urine Culture - Final Culture exhibits no growth. Imaging Radiology Impression Head/Neck CTA 06/20/23 14:22 IMPRESSION: No evidence for acute intracranial hemorrhage. No evidence for large vessel occlusion in the [place] region. Severe stenosis and near occlusion of the proximal right internal carotid artery in the neck with string of flow. Otherwise mild diffuse narrowing of the caliber of the right internal carotid artery in the mid to distal neck and intracranial portion without significant stenosis or occlusion. Right lung mass. Electronically Signed: Maritza Lyn MD at 16:01 EDT , Active Medications Active Medications Active Medications: Current Medications Generic Name Dose Route Start Last Admin Trade Name Freq PRN Reason Stop Dose Admin Acetaminophen 650 mg 06/18/23 16:46 06/20/23 21:18 Acetaminophen 325 Mg Tablet PO 650 mg Q4H PRN PRN Administration Fever, pain 1-10/10 Al Hydroxide/Mg Hydroxide 30 ml 06/18/23 16:46 Mag Hydrox/Al Hydrox/Simeth 30 Ml Udc PO Q6H PRN PRN Gastric Burning Albuterol Sulfate 2.5 mg 06/18/23 16:46 Albuterol 2.5 Mg/3 Ml Vial.Neb. INHALATION Q2H PRN PRN Dyspnea, wheezing Albuterol/Ipratropium 3 ml 06/18/23 16:46 06/21/23 06:51 Ipratropium/Albuterol Sulfate 3 Ml Ampul.Neb INHALATION 3 ml Q4HWA.RT JOHN Administration Aspirin 81 mg 06/19/23 08:00 06/21/23 09:36 Aspirin 81 Mg Tab.Chew PO 81 mg BREAKFAST JOHN Administration Atorvastatin Calcium 80 mg 06/20/23 22:00 06/20/23 21:20 Atorvastatin Calcium 80 Mg Tablet PO 80 mg QHS JOHN Administration Dicyclomine HCl 20 mg 06/19/23 18:14 Dicyclomine 10 Mg Capsule PO Q6H PRN PRN abdominal discomfort Enoxaparin Sodium 40 mg 06/19/23 10:00 06/21/23 10:21 Enoxaparin 40 Mg/0.4 Ml Syringe SC Not Given DAILY JOHN Folic Acid 1 mg 06/19/23 08:00 06/21/23 09:36 Folic Acid 1 Mg Tablet PO 1 mg DAILYCM JOHN Administration Gabapentin 300 mg 06/19/23 18:14 Gabapentin 300 Mg Capsule PO Q8H PRN PRN moderate to severe anxiety Guaifenesin 20 ml 06/18/23 16:46 Guaifenesin 10 Ml Udc (200mg/10ml) PO Q4H PRN PRN COUGH Hydralazine HCl 10 mg 06/18/23 16:46 Hydralazine 20 Mg/Ml Vial IV Q4H PRN PRN SBP > 160 Protocol Hydroxyzine Pamoate 50 mg 06/19/23 18:14 Hydroxyzine Marivel 25 Mg Capsule PO Q4H PRN PRN mild anxiety Piperacillin Sod/Tazobactam 50 mls @ 12.5 mls/hr 06/18/23 22:00 06/21/23 09:30 Sod 3.375 gm/ Sodium Chloride IV Infused Q8 JOHN Infusion Vancomycin IV-PHARMACY TO DOSE 500 mls @ 250 mls/hr 06/18/23 16:46 1 each/ Sodium Chloride IV PRN PRN Rx to Dose Protocol Sodium Chloride 250 mls @ 15 mls/hr 06/18/23 17:03 IV .[id number] PRN Additional IVPB Infusion Sodium Chloride 250 mls @ 15 mls/hr 06/18/23 17:03 IV .[id number] PRN Saline Flush Sodium Chloride 250 mls @ 15 mls/hr 06/19/23 18:05 IV .[id number] PRN Additional IVPB Infusion Sodium Chloride 250 mls @ 15 mls/hr 06/19/23 18:05 IV .[id number] PRN Saline Flush Vancomycin HCl 1,250 mg/ 275 mls @ 167 mls/hr 06/20/23 04:00 06/21/23 05:52 Sodium Chloride IV Infused Q12H JOHN Infusion Sodium Chloride 1,000 mls @ 100 mls/hr 06/20/23 14:20 06/21/23 04:11 IV 100 mls/hr .Q10H JOHN Administration Loperamide HCl 2 mg 06/19/23 18:14 Loperamide 2 Mg Capsule PO Q4H PRN PRN Loose Stools Magnesium Chloride 128 mg 06/18/23 22:00 06/21/23 09:36 Magnesium Chloride 64 Mg Delay Rel.Tablet PO 128 mg TID JOHN Administration Melatonin 3 mg 06/18/23 16:46 06/18/23 21:07 Melatonin 3 Mg Tablet PO 3 mg QHS PRN PRN Administration INSOMNIA Multivitamins/Minerals 1 tablet 06/19/23 08:00 06/21/23 09:36 Multivitamins,Ther W-Minerals Tablet PO 1 tablet BREAKFAST JOHN Administration Ondansetron HCl 4 mg 06/18/23 16:46 Ondansetron 4 Mg/2 Ml Vial IV Q8H PRN PRN NAUSEA/VOMITING Pantoprazole Sodium 40 mg 06/20/23 14:30 06/21/23 09:37 Pantoprazole Sodium 40 Mg Tablet PO 40 mg DAILY JOHN Administration Polysaccharide Iron Complex 150 mg 06/19/23 10:00 06/21/23 09:36 Iron Polysaccharide Complex 150 Mg Capsule PO 150 mg DAILY JOHN Administration Potassium Chloride 20 meq 06/19/23 17:00 06/21/23 09:37 Potassium Chloride Oral Tablet 20 Meq PO 20 meq BIDCM JOHN Administration Prochlorperazine Edisylate 5 mg 06/18/23 16:46 Prochlorperazine 10 Mg/2 Ml Vial IV Q4H PRN PRN Breakthrough Nausea/Vomiting Senna/Docusate Sodium 2 tablet 06/18/23 16:46 Senna/Docusate Sodium 1 Tablet PO BID PRN PRN Constipation Sodium Chloride 10 - 40 ml 06/18/23 17:03 06/19/23 16:29 0.9% Saline Lock 10 Ml Syringe IV 10 ml UD PRN Administration SALINE FLUSH Sodium Chloride 10 - 40 ml 06/19/23 18:05 0.9 % Nacl (Sterile) Posiflush 10 Ml IV UD PRN Port access or dressing change Sodium Chloride 10 - 40 ml 06/19/23 18:05 0.9% Saline Lock 10 Ml Syringe IV UD PRN Midline Flush Sodium Chloride 10 - 40 ml 06/19/23 18:05 0.9% Saline Lock 10 Ml Syringe IV UD PRN SALINE FLUSH Thiamine HCl 100 mg 06/19/23 10:00 06/21/23 09:37 Thiamine Hydrochloride 100 Mg Tablet PO 100 mg DAILY JOHN Administration Trazodone HCl 100 mg 06/19/23 18:14 Trazodone 100 Mg Tablet PO QHS PRN INSOMNIA Vancomycin Protocol 1 lab 06/21/23 13:30 Vancomycin Trough/Random Due MC 06/21/23 17:30 DAILY JOHN
[2023-06-21 15:55] LABS: Vancomycin, Trough Level 25.2 ug/mL (5.0-15.0)
--- NOTE | 2023-06-21 16:35 | PCM.RX.CS ---
Consult Antibiotic Management Pharmacy has been consulted to manage selected antibiotic: Vancomycin Type of Intervention Type of Consult: Follow-up Suspected Infection Suspected Infection: Pneumonia Labs Labs: Sodium 142 mmol/L (136-145) 06/21/23 04:40 Potassium 3.7 mmol/L (3.5-5.1) 06/21/23 04:40 Chloride 114 mmol/L (98-107) H 06/21/23 04:40 Carbon Dioxide 21.0 mmol/L (21.0-32.0) 06/21/23 04:40 Anion Gap 7 (5-15) 06/21/23 04:40 BUN 4 mg/dL (7-18) L 06/21/23 04:40 Creatinine 0.57 mg/dL (0.55-1.02) 06/21/23 04:40 Est GFR (MDRD) Af Amer 140 mL/min (>60) 06/21/23 04:40 Est GFR (MDRD) Non-Af 116 mL/min (>60) 06/21/23 04:40 BUN/Creatinine Ratio 7.0 RATIO (10-20) L 06/21/23 04:40 Glucose 93 mg/dL (74-106) 06/21/23 04:40 Vancomycin Trough 25.2 ug/mL (5.0-15.0) H 06/21/23 15:21 Microbiology Microbiology: Microbiology 06/18/23 13:50 Urine, Catheterized Urine Culture - Final Culture exhibits no growth. 06/18/23 12:35 Blood Culture (Wb) - Right Wrist Blood Culture - Preliminary No growth in 48 hours. 06/18/23 12:20 Blood Culture (Wb) - Arm Left Blood Culture - Preliminary No growth in 48 hours. 06/19/23 11:00 Stool Stool Occult Blood (DOMINGO) - Final Occult Blood Positive 06/18/23 17:54 Mucosa - Nasopharyngeal Respiratory Panel (PCR) - Final 06/18/23 13:50 Urine, Clean Catch Legionella Antigen - Final 06/18/23 13:50 Urine, Clean Catch Streptococcus pneumoniae Antigen (M - Final 06/18/23 13:32 Mucosa - Nose SARS-CoV-2, Influenza & RSV (PCR) - Final Goal Trough Goal Trough: 15-20 mcg/mL Pharmacy Plan for Drug Dosing Pharmacy Plan for Drug Dosing: VANCOMYCIN LEVEL RECEIVED Current Vancomycin Dose: 1250mg q12h (,16) Number of Doses Received: x3 of current dose Vancomycin Level: 25.2 Hours Since Last Dose: 11.5 hours since last dose Renal Function: SrCr 0.57 Renal Function Trend: SrCr increasing (was 0.47 on 06/20/23) Lab/Micro: Vancomycin Plan/Comments: resulted trough of 25.7 is above the maximum trough of 20. recommend holding future doses and checking a random level on 06/22/23 at 0600 Pending Level: random level 06/22/23 at 0600 Pharmacy Service will continue to monitor and adjust dosing as required. Follow-Up Labs Follow-Up Labs: Trough: Vancomycin (random level 06/22/23 at 0600)
--- NOTE | 2023-06-21 16:48 | RAD_ITS ---
INDICATION: sob EXAMINATION/TECHNIQUE: X-RAY - XR Chest 1 View COMPARISON: June 18, 2023 FINDINGS: LINES/DEVICES: None. LUNGS: There is again noted a masslike opacity in the right upper lung field. Bilateral lower lobe infiltrates. Moderate left effusion. No pneumothorax. MEDIASTINUM AND CARDIOVASCULAR STRUCTURES: Cardiac silhouette not enlarged. Central airways and mediastinal contour are unremarkable. BONES AND SOFT TISSUES: Unremarkable. RAD/Chest 1 View (Portable) IMPRESSION: There is again noted a masslike opacity in the right upper lung field. Bilateral lower lobe infiltrates. Moderate left effusion. Electronically Signed: Virgilio Lezama DO at 17:48 EDT Reading Location ID and State: [facility] / [place] Tel [phone], Service support ,
--- NOTE | 2023-06-21 17:27 | EX.PCM.PN.GI ---
Subjective Subjective Patient still has altered mental status. She is also still having lower GI bleeding as she did yesterday. She had MRI today which showed multiple strokes versus metastatic disease from possible lung CA. She is scheduled to get biopsy of the lung mass tomorrow. Objective Data Objective Data Vital Signs: Vital Signs Temp Pulse Resp BP Pulse Ox O2 Del Method O2 Flow Rate 100.3 F H 114 H 17 125/67 H 94 Nasal Cannula 2 06/21/23 15:53 06/21/23 15:53 06/21/23 15:53 06/21/23 15:53 06/21/23 15:53 06/21/23 16:15 06/21/23 16:15 Oxygen Flow Rate (L/min) 2 Oxygen Delivery Method Nasal Cannula Weight: 125 lb 1.6 oz Body Mass Index (BMI) 21.4 Intake & Output: Intake and Output for Last 24 Hours 06/19/23 06/20/23 06/21/23 23:59 23:59 23:59 Intake Total 1671 / 1771 1040 / 1040 2648.33 / 264.33 Output Total 625 / 625 900 / 900 650 / 650 Balance 1046 / 1146 140 / 140 1997.33 / 33 Medical Nutrition Assessment Dietitian: Malnutrition Criteria Met Start: 06/19/23 16:32 Freq: Status: Active Protocol: Document 06/19/23 16:32 AG (Rec: 06/19/23 16:32 [id number]) Nutrition Malnutrition Evidence of Malnutrition Exists Yes Malnutrition (severe): Acute Illness/Injury Evidenced By Suboptimal Energy Intake ( Severe),Weight Loss (Severe) Clinical Problem Acute Disease or Injury Related Malnutrition Etiology severe, acute malnutrition related to inadequate energy intake Signs/Symptoms as evidenced by estimated PO intake meeting <50% of estimated energy needs > 5 days, unintentional 9% wt loss < 2 months Status Active Problem Recommendation Dietitian Recommendations/Changes regular diet given evidence of malnutrition; 240mL ensure clear TID w/ meals for additional nutrition if consumed Lab / Micro Data 06/21/23 04:40 06/21/23 04:40 Labs: Laboratory Results - last 24 hr 06/21/23 04:40: WBC 35.4 H*, RBC 2.30 L, Hgb 7.4 L, Hct 23.0 L, MCV 100.0 H, MCH 32.2 H, MCHC 32.2, RDW Std Deviation 54.7 H, RDW Coeff of Bryanna 15.0 H, Plt Count 574 H, MPV 9.7, Immature Gran % (Auto) 1.600 H, Neut % (Auto) 87.3 H, Lymph % (Auto) 5.5 L, [place] % (Auto) 4.6, Eos % (Auto) 0.6, Baso % (Auto) 0.4, Absolute Neuts (auto) 30.9 H, Absolute Lymphs (auto) 1.95, Nucleated RBC % 0, Differential Comment SCANNED, Diff Path Review June foll, Sodium 142, Potassium 3.7, Chloride 114 H, Carbon Dioxide 21.0, Anion Gap 7, BUN 4 L, Creatinine 0.57, Estim Creat Clear Calc 91.77, Est GFR (MDRD) Af Amer 140, Est GFR (MDRD) Non-Af 116, BUN/Creatinine Ratio 7.0 L, Glucose 93, Calcium 8.6, Triglycerides 106, Cholesterol 88, LDL Cholesterol 49, VLDL Cholesterol 21, HDL Cholesterol 18 L 06/21/23 15:21: Vancomycin Trough 25.2 H Micro: Microbiology 06/18/23 13:50 Urine, Catheterized Urine Culture - Final Culture exhibits no growth. 06/18/23 12:35 Blood Culture (Wb) - Right Wrist Blood Culture - Preliminary No growth in 48 hours. 06/18/23 12:20 Blood Culture (Wb) - Arm Left Blood Culture - Preliminary No growth in 48 hours. 06/19/23 11:00 Stool Stool Occult Blood (DOMINGO) - Final Occult Blood Positive 06/18/23 17:54 Mucosa - Nasopharyngeal Respiratory Panel (PCR) - Final 06/18/23 13:50 Urine, Clean Catch Legionella Antigen - Final 06/18/23 13:50 Urine, Clean Catch Streptococcus pneumoniae Antigen (M - Final 06/18/23 13:32 Mucosa - Nose SARS-CoV-2, Influenza & RSV (PCR) - Final Physical Exam Narrative GENERAL: Frail looking HEENT: Atraumatic; normocephalic EYES; Anicteric, Normal Conjunctiva NECK; supple, normal thyroid, RESPIRATORY: Diminished to auscultation CARDIOVASCULAR: Regular S1 S2, GI: soft, normoactive bowel sounds, : No Renal angle tenderness; EXTREMITIES: No edema, no clubbing, MUSCULOSKELETAL: no muscle wasting NEURO: Awake; difficult to assess motor function given patient being under the effect of phenobarb. SKIN: No Rash PSYCH; Flat affect Assessment & Plan Assessment/Plan (1) Encephalopathy: (2) History of alcohol abuse: (3) Lower GI bleeding: PLAN: Plan The patient is a 57 y/o F with history of fatigue, weakness, confusion and hypertension referred from her pulmonary office with history of recent admission to [facility] and at that time diagnosed with lung mass with new office visit for evaluation of this new mass. She was also discovered to have a significant anemia and a mass in the distal ileum. Significant anemia. Agree with blood transfusion. She should undergo an upper endoscopy to evaluate upper GI tract to look for signs and symptoms of acute on chronic GI blood loss. Currently at this time she is microcytic. She has a reactive thrombocytosis possibly secondary to leukocytosis and or GI blood loss. Acute Encephalopathy, Multifactorial, associated with Possible Acute RUL PNA complicated by recent Lung Mass/SB mass with Underlying malignancy Abnormality in the ileum. She should undergo colonoscopy to evaluate her lower GI tract for lymphoma, adenocarcinoma, carcinoid. She was explained alternatives, risk, benefits including outstanding bleeding, infection, sepsis, perforation, need for emergent urgent . She have an ASA of 3. 4/-she underwent an upper endoscopy yesterday. Findings from the EGD: - No gross lesions in the entire esophagus. - Non-bleeding gastric ulcer with no stigmata of bleeding. Biopsied. - Non-bleeding duodenal ulcer with no stigmata of bleeding. Recommendations : - [facility] to [facility] for [facility] care. - Clear liquid diet. - Continue present medications. - Await pathology results. She was not able to undergo colonoscopy. She did have a large f bloody bowel movement prior to the procedure and still continues to have bloody bowel movements. She does need to undergo colonoscopy but it is not safe for her at this time and she is getting a lung biopsy tomorrow. Recommended transfer use blood for hemoglobin less than 7 or hematocrit less than 30% Charges/Coding Visit Charges Inpatient E&M: 56142 [facility] L3
[2023-06-21] MEDS: Acetaminophen 325 MG Tablet 650 MG PO (17:50)
[2023-06-21] MEDS: Atorvastatin Calcium 80 MG Tablet PO (20:22)
[2023-06-22] VITALS (32 sets, daily range): BP systolic 103–150; BP diastolic 47–98; PULSE 100–128; RESP 16–30; TEMP 36.6–39.5; O2SAT 89–98; BMI 23.7
--- NOTE | 2023-06-22 | IMM_PTH ---
PATIENT: CARL PERALTA LOC: [facility] U#:[id number] AGE/SX: 57/F ROOM: [facility] RE06/18/[address]: Dr. Boone Vinson MD : 1965 BED: 1 DIS: 06/26/2023 SPEC #: [id number] RECD: 06/22/23 09:57 STATUS: SOUT REQ #: [id number] VIVIANE: 06/22/23 00:[address]: Boone Vinson DEPT: IMMUNOHISTOCHEMISTRY RECD BY: Joseph Cross ENTERED: 06/22/23 09:59 SP TYPE: IMMUNO OTHR DR: MD Dr. Arlen Barrera MD Archana Hinduja, MD Dr. Allison Jordan, DO Dr. Autumn L White, MD Dr. Alicia Zha, MD Danielle Becker, MD Dr. Deepak Gulati, MD Dr. David Kittoe, MD Dr. Eric Turney, MD Dr. Gabriele Pedicelli, MD Dr. Hera Kamdar, MD Dr. Jan Bittar, MD Dr. James Burke, MD Jesse Mindel, MD RAVEN Kaiser MD Margaret Beigel, MD Dr. Matthew Gusler, MD Dr. Maryam Mian, MD Dr. Mohamed Ridha, MD Dr. Mhd Ezzat Zaghlouleh, MD Nabil Khandker, MD Dr. Peter Robinson, MD Dr. Rahsaan Friend, DO MD Dr. Everton Bynum MD Sarita Maturu, MD Dr. Vivien Lee, MD Yousef Hannawi, MD No Primary Care Phys Tissues: Lung, NOS Procedures: RCC (add) NAPSIN A (add) CK20 (add) CK5-6 (add) CK7 (add) CK8 (add) E-CAD (add) HEP PAR (add) HER2 ANTOLIN (add) KI-67 (add) MAMM (add) P53 (add) AK (add) TTF1 (add) Pankeratin (add) GATA3 (add) P40 (add) CDX2 (add) MOC-31 (add) ER (initial) PHYSICIAN & INSTITUTION [place] [id number] SPECIMEN INFORMATION: Tissue Source: Right lung biopsy Clinical Info: Lung mass Specimen Number: [id number] CPT code: 52449,[id number] METHODOLOGY: Deparaffinized sections of prefer/formalin-fixed tissue or PAP/DQ stained slides are incubated with monoclonal/polyclonal antibodies/oligonucleotide probes. Localization is made via biotin free immunoperoxidase method. Appropriate controls are performed and reacted as expected. Results on target cell population are indicated in the following table: RESULTS: ANTIBODY / CLONE RESULT E-Cad (ECH-6) positive Mammaglobin (31A5) negative GATA3 (L50-823) negative AE1-3 (AE1/AE3/PCK26) positive CK7 (OV-TL12/30) positive CK8 (14qivgQ39) positive CK20 (KS20.8) negative CDX2 ([id number]) negative TTF-1 (8G7G3/1) negative Napsin A (Rabbit Polyclonal) negative HepPar (OCh1E5) negative RCC (PN-15) negative CK5-6 (D5 & 1684) negative P40 (BC28) negative P53 (DO-7) positive, focal (indeterminate pattern) Ki-67 (30-9) positive, high, ~70-80% ER (6F11) negative AK (1E2) negative Her-2neu (CB11) negative These tests were developed and their performance characteristics determined by [facility]. They may not have been cleared or approved by the U.S. Food and Drug Administration. The FDA has determined that such clearance or approval is not necessary. The above immunohistochemical/dualISH markers are ordered and reviewed by the Pathologist. INTERPRETATION: Right lung CT guided, core biopsy: Poorly differentiated non-small cell carcinoma, favor adenocarcinoma. See comment. HARSH/mr 06/23/2023 Comment: IHC profile is non-contributing for further classification of tumor.
[2023-06-22] MEDS: Magnesium Chloride 64 MG Delay Rel.Tablet 128 MG PO ×3 (04:50→20:21)
[2023-06-22] MEDS: Piperacil/Tazobactam 3.375 GM in 0.9% Normal Saline (50mL MB+) 50 ML IV ×3 (04:50→20:21)
[2023-06-22 06:18] LABS: Absolute Lymphocyte Count 1.64 X10^3/uL (0.83-4.51); Absolute Neutrophil Count 28.4 X10^3/uL (2.0-7.7); Basophil% 0.3 % (0-1); Eosinophils% 0.3 % (0-5); Hemoglobin 6.2 g/dL (12.0-15.0); Lymphocyte # 1.64 X10^3/ul (0.83-4.51); Mean Corp Hgb Conc 32.6 g/dL (32-36); Mean Corpuscular Hgb 31.5 pg (27.0-32.0); Mean Corpuscular Volume 96.4 fL (81-99); Monocyte# 1.51 X10^3/uL; Monocyte% 4.6 % (0-10); NRBC Flagged by Analyzer 0 % (0-5); Neutrophil # 28.38 X10^3/uL (2.7-7.7); Neutrophil % 87.5 % (47-70); POSITIVE COUNT YES; POSITIVE DIFFERENTIAL YES; Platelet Count 519 K/mm3 (150-450); RBC Distribution Width CV 14.9 % (11.6-14.6); Red Blood Count 1.97 M/mm3 (4.2-5.4)
[2023-06-22 06:30] LABS: International Normalized Ratio 1.2; Prothrombin Time (Protime)PT. 15.5 SECONDS (11.7-14.9)
[2023-06-22 06:31] LABS: Partial Thromboplast Time 42.8 Seconds (24.1-36.2)
[2023-06-22 06:44] LABS: Anion Gap 7 (5-15); BUN 3 mg/dL (7-18); BUN/Creat Ratio 5.5 RATIO (10-20); Calcium,Total 8.1 mg/dL (8.5-10.1); Chloride 112 mmol/L (98-107); Creatinine, Serum 0.55 mg/dL (0.55-1.02); EST Glomerular Filtration Rate 121 mL/min (>60); Est Glom Filt Rate - Afr Amer 146 mL/min (>60); Glucose 98 mg/dL (74-106); Potassium 3.2 mmol/L (3.5-5.1); Sodium Level 140 mmol/L (136-145)
[2023-06-22 06:46] LABS: Vancomycin, Random Level 11.7 ug/mL (0.0-15.0)
--- NOTE | 2023-06-22 06:56 | PCM.RX.CS ---
Consult Antibiotic Management Pharmacy has been consulted to manage selected antibiotic: Vancomycin Type of Intervention Type of Consult: Follow-up Labs Labs: Sodium 140 mmol/L (136-145) 06/22/23 05:58 Potassium 3.2 mmol/L (3.5-5.1) L 06/22/23 05:58 Chloride 112 mmol/L (98-107) H 06/22/23 05:58 Carbon Dioxide 21.0 mmol/L (21.0-32.0) 06/22/23 05:58 Anion Gap 7 (5-15) 06/22/23 05:58 BUN 3 mg/dL (7-18) L 06/22/23 05:58 Creatinine 0.55 mg/dL (0.55-1.02) 06/22/23 05:58 Est GFR (MDRD) Af Amer 146 mL/min (>60) 06/22/23 05:58 Est GFR (MDRD) Non-Af 121 mL/min (>60) 06/22/23 05:58 BUN/Creatinine Ratio 5.5 RATIO (10-20) L 06/22/23 05:58 Glucose 98 mg/dL (74-106) 06/22/23 05:58 Vancomycin Trough 25.2 ug/mL (5.0-15.0) H 06/21/23 15:21 Random Vancomycin 11.7 ug/mL (0.0-15.0) 06/22/23 05:58 Microbiology Microbiology: Microbiology 06/18/23 13:50 Urine, Catheterized Urine Culture - Final Culture exhibits no growth. 06/18/23 12:35 Blood Culture (Wb) - Right Wrist Blood Culture - Preliminary No growth in 48 hours. 06/18/23 12:20 Blood Culture (Wb) - Arm Left Blood Culture - Preliminary No growth in 48 hours. 06/19/23 11:00 Stool Stool Occult Blood (DOMINGO) - Final Occult Blood Positive 06/18/23 17:54 Mucosa - Nasopharyngeal Respiratory Panel (PCR) - Final 06/18/23 13:50 Urine, Clean Catch Legionella Antigen - Final 06/18/23 13:50 Urine, Clean Catch Streptococcus pneumoniae Antigen (M - Final 06/18/23 13:32 Mucosa - Nose SARS-CoV-2, Influenza & RSV (PCR) - Final Goal Trough Goal Trough: 15-20 mcg/mL Pharmacy Plan for Drug Dosing Pharmacy Plan for Drug Dosing: VANCOMYCIN LEVEL RECEIVED Current Vancomycin Dose: Currently ON HOLD d/t previously elevated trough Number of Doses Received: n/a Vancomycin Level: 11.7 Hours Since Last Dose: ~25.5hr Renal Function: 0.55 Renal Function Trend: stable Lab/Micro: Cx show NGTD Vancomycin Plan/Comments: Patient had a random trough drawn which resulted in a value of 11.7 (goal 15-20). Since trough is now <20, will restart vancomycin. Per dosing calculator, will start patient on 1500mg IV Q24hr with an estimated new trough of 15.8. Pending Level: 06/24/23 @0730, prior to 3rd dose of new regimen. Pharmacy Service will continue to monitor and adjust dosing as required.
[2023-06-22 06:57] LABS: Differential Indicated SCAN CRITERIA MET; White Blood Count 32.5 K/mm3 (4.4-11.0)
[2023-06-22] MEDS: Ipratropium/Albuterol Sulfate 3 ML AMPUL.NEB INHALATION ×4 (07:09→19:00)
--- NOTE | 2023-06-22 07:38 | EX.PCM.CON.S ---
Assessment & Plan Assessment/Plan (1) Carotid stenosis, symptomatic, with infarction: PLAN: -CTA images reviewed, 85% stenosis by NASCET -MRI with multiple right hemispheric infarcts, likely low flow from combined stenosis and hypotension -was not previously on antiplatelet, now ASA -GI bleed, mass in ileum; plan for colonoscopy -given severity of stenosis and associated infarcts should address once medically optimized before discharge -operative timing based on lung mass, ileum mass, anemia workup and improvements in mental status; apparently drank significantly until 2 weeks ago so potentially withdrawal clouding mental status -cont at least single agent antiplatelet, avoid hypotension/hypovolemia -will follow HPI Consult Data Date of Consult: 06/22/23 HPI Narrative HPI Narrative: CARL PERALTA, is a 57 F who presents with altered mental status, hypotension from pulmonary office to ED last week. She has suspected pneumonia, lung mass, terminal ileum mass, and GI bleed with anemia. CTA revealed severe stenosis of right ICA and MRI revealed multiple small infarcts suspected low flow state from stenosis and hypotension. She can provide limited history due to mental status though can answer some questions. She denies prior knowledge of carotid stenosis, no prior strokes, no prior antiplatelet or anticoagulation medications. EGD was normal. Lung biopsy planned as well as colonoscopy. [facility] Medical History Chronic anemia COPD (chronic obstructive pulmonary disease) Former tobacco use History of alcohol abuse Iron deficiency Lung mass Small bowel mass Home Medications cefdinir 300 mg capsule 300 mg PO Q12H 06/18/23 [History Last Taken 06/17/23] ferrous fumarate 324 mg (106 mg iron) tablet (Ferrocite) 324 mg PO DAILY 06/18/23 [History Last Taken 06/17/23] folic acid 1 mg tablet 1 mg PO DAILY 06/18/23 [History Last Taken 06/17/23] magnesium oxide 400 mg (241.3 mg magnesium) tablet 400 mg PO TID 06/18/23 [History Last Taken 06/17/23] thiamine HCl (vitamin B1) 100 mg tablet 100 mg PO DAILY 06/18/23 [History Last Taken 06/17/23] Allergy/AdvReac Type Severity Reaction Status Date / Time No Known Allergies Allergy Verified 06/18/23 11:51 Family History Mother Heart disease Hypertension Myocardial infarction CAD (coronary artery disease) Father Brain cancer Surgical History History of dental surgery Social History household members: spouse Smoking Status: Current every day smoker tobacco type: cigarettes how long ago did patient quit smoking: Quit 2 wks prior to admission, smoked 1 ppd intermittently since teen. alcohol intake: former details: Sober x 2 weeks, 1/4-1/3 of 1L vodka daily. substance use type: does not use ROS Review of Systems ROS Unobtainable: due to encephalopathy and due to mental status Physical Exam Const General Appearance: disheveled, lethargic and frail Exam Limitations: altered mental status HEENT Head and Scalp: normocephalic and atraumatic Face and Sinus: face symmetric Nose: external nose normal Neck full ROM General: trachea midline Thyroid: thyroid normal Resp normal respiratory effort, no retractions and no use of accessory muscles Cardio regular rate and regular rhythm Extremity full ROM and no clubbing, cyanosis or edema Skin no rashes or lesions noted, no wounds and no jaundice Neuro moves all extremities and no focal motor deficits Sensorium / Orientation: awake and lethargic Speech: speech normal Psych Appearance: disheveled Speech: slow Medical Records Data Medical Nutrition Assessment Dietitian: Malnutrition Criteria Met Start: 06/19/23 16:32 Freq: Status: Active Protocol: Document 06/19/23 16:32 (Rec: 06/19/23 16:32 [id number]) Nutrition Malnutrition Evidence of Malnutrition Exists Yes Malnutrition (severe): Acute Illness/Injury Evidenced By Suboptimal Energy Intake ( Severe),Weight Loss (Severe) Clinical Problem Acute Disease or Injury Related Malnutrition Etiology severe, acute malnutrition related to inadequate energy intake Signs/Symptoms as evidenced by estimated PO intake meeting <50% of estimated energy needs > 5 days, unintentional 9% wt loss < 2 months Status Active Problem Recommendation Dietitian Recommendations/Changes regular diet given evidence of malnutrition; 240mL ensure clear TID w/ meals for additional nutrition if consumed Lab / Micro Data 06/22/23 05:58 06/22/23 05:58 Labs: Laboratory Results - last 24 hr 06/21/23 04:40: Differential Comment SCANNED, Diff Path Review June/21/24 15:21: Vancomycin Trough 25.2 H 06/22/23 05:58: WBC 32.5 H*, RBC 1.97 L, Hgb 6.2 L, Hct 19.0 L, MCV 96.4, MCH 31.5, MCHC 32.6, RDW Std Deviation 52.0 H, RDW Coeff of Bryanna 14.9 H, Plt Count 519 H, MPV 9.0, Immature Gran % (Auto) 2.300 H, Neut % (Auto) 87.5 H, Lymph % (Auto) 5.0 L, Emanuel % (Auto) 4.6, Eos % (Auto) 0.3, Baso % (Auto) 0.3, Absolute Neuts (auto) 28.4 H, Absolute Lymphs (auto) 1.64, Nucleated RBC % 0, PT 15.5 H, INR 1.2, APTT 42.8 H, Sodium 140, Potassium 3.2 L, Chloride 112 H, Carbon Dioxide 21.0, Anion Gap 7, BUN 3 L, Creatinine 0.55, Estim Creat Clear Calc 95.10, Est GFR (MDRD) Af Amer 146, Est GFR (MDRD) Non-Af 121, BUN/Creatinine Ratio 5.5 L, Glucose 98, Calcium 8.1 L, Random Vancomycin 11.7 Micro: Microbiology 06/18/23 13:50 Urine, Catheterized Urine Culture - Final Culture exhibits no growth. Imaging Radiology Impression Chest X-Ray 06/21/23 16:48 IMPRESSION: There is again noted a masslike opacity in the right upper lung field. Bilateral lower lobe infiltrates. Moderate left effusion. Electronically Signed: Virgilio Lezama DO at 17:48 EDT , Charges/Coding Visit Charges Inpatient E&M: 00896 Init Hosp L3
--- NOTE | 2023-06-22 07:38 | PCM.PN.HOSP ---
Reason for Visit Reason for Visit: Diagnoses Anemia, unspecified (06/18/23) Alcohol abuse, in remission (06/18/23) Encephalopathy, unspecified (06/18/23) Hypotension, unspecified (06/18/23) Gastrointestinal hemorrhage, unspecified (06/18/23) Other nonspecific abnormal finding of lung field (06/18/23) Objective Data Objective Data Vital Signs: Vital Signs Temp Pulse Resp BP Pulse Ox O2 Del Method O2 Flow Rate 98.0 F 112 H 18 146/92 H 89 Nasal Cannula 2 06/22/23 04:30 06/22/23 04:30 06/22/23 04:30 06/22/23 04:30 06/22/23 04:30 06/22/23 04:30 06/22/23 04:30 Oxygen Flow Rate (L/min) 2 Oxygen Delivery Method Nasal Cannula Weight: 138 lb 3.677 oz Body Mass Index (BMI) 23.7 Intake & Output: Intake and Output for Last 24 Hours 06/20/23 06/21/23 06/22/23 23:59 23:59 23:59 Intake Total 1040 / 1040 4100.00 / 4100.00 Output Total 900 / 900 1250 / 1250 450 / 450 Balance 140 / 140 2850.00 / 2850.00 -450 / -450 Medical Nutrition Assessment Dietitian: Malnutrition Criteria Met Start: 06/19/23 16:32 Freq: Status: Active Protocol: Document 06/19/23 16:32 AG (Rec: 06/19/23 16:32 [id number]) Nutrition Malnutrition Evidence of Malnutrition Exists Yes Malnutrition (severe): Acute Illness/Injury Evidenced By Suboptimal Energy Intake ( Severe),Weight Loss (Severe) Clinical Problem Acute Disease or Injury Related Malnutrition Etiology severe, acute malnutrition related to inadequate energy intake Signs/Symptoms as evidenced by estimated PO intake meeting <50% of estimated energy needs > 5 days, unintentional 9% wt loss < 2 months Status Active Problem Recommendation Dietitian Recommendations/Changes regular diet given evidence of malnutrition; 240mL ensure clear TID w/ meals for additional nutrition if consumed Lab / Micro Data 06/22/23 05:58 06/22/23 05:58 Labs: Laboratory Results - last 24 hr 06/21/23 04:40: Differential Comment SCANNED, Diff Path Review June06/21/23 15:21: Vancomycin Trough 25.2 H 06/22/23 05:58: WBC 32.5 H*, RBC 1.97 L, Hgb 6.2 L, Hct 19.0 L, MCV 96.4, MCH 31.5, MCHC 32.6, RDW Std Deviation 52.0 H, RDW Coeff of Bryanna 14.9 H, Plt Count 519 H, MPV 9.0, Immature Gran % (Auto) 2.300 H, Neut % (Auto) 87.5 H, Lymph % (Auto) 5.0 L, [place] % (Auto) 4.6, Eos % (Auto) 0.3, Baso % (Auto) 0.3, Absolute Neuts (auto) 28.4 H, Absolute Lymphs (auto) 1.64, Nucleated RBC % 0, PT 15.5 H, INR 1.2, APTT 42.8 H, Sodium 140, Potassium 3.2 L, Chloride 112 H, Carbon Dioxide 21.0, Anion Gap 7, BUN 3 L, Creatinine 0.55, Estim Creat Clear Calc 95.10, Est GFR (MDRD) Af Amer 146, Est GFR (MDRD) Non-Af 121, BUN/Creatinine Ratio 5.5 L, Glucose 98, Calcium 8.1 L, Random Vancomycin 11.7 Micro: Microbiology 06/18/23 13:50 Urine, Catheterized Urine Culture - Final Culture exhibits no growth. 06/18/23 12:35 Blood Culture (Wb) - Right Wrist Blood Culture - Preliminary No growth in 48 hours. 06/18/23 12:20 Blood Culture (Wb) - Arm Left Blood Culture - Preliminary No growth in 48 hours. 06/19/23 11:00 Stool Stool Occult Blood (DOMINGO) - Final Occult Blood Positive 06/18/23 17:54 Mucosa - Nasopharyngeal Respiratory Panel (PCR) - Final 06/18/23 13:50 Urine, Clean Catch Legionella Antigen - Final 06/18/23 13:50 Urine, Clean Catch Streptococcus pneumoniae Antigen (M - Final 06/18/23 13:32 Mucosa - Nose SARS-CoV-2, Influenza & RSV (PCR) - Final Radiography Diagnostic Testing: Radiology Impression Chest X-Ray 06/21/23 16:48 IMPRESSION: There is again noted a masslike opacity in the right upper lung field. Bilateral lower lobe infiltrates. Moderate left effusion. Electronically Signed: Virgilio Lezama DO at 17:48 EDT , Physical Exam Narrative Seen and examined the patient of patient's RN. A lot of things scheduled for today including lung biopsy, colonoscopy will need PRBC transfusion. General: Awake, confused, disoriented to time and person. Could not tell month and read time on the clock. HEENT: Atraumatic, PERRLA, EOMI, Normocephalic Oral: Oral mucosa dry. No Gingival or Mucosal Lesions/ Ulcerations Neck: Supple, No JVD, could not hear bruits does not follow commands Chest wall/Lungs: Air entry diminished in bilateral lung bases. No crepitation/rhonchi Cardiovascular: Sinus tachycardia normal S1, Normal S2, No M/G/R Abdomen: Bowel Sounds Present, Soft, Non Tender, Non-Distended : No dysuria. No renal angle tenderness. No suprapubic tenderness. Extremities: No edema, Capillary Refill Less than 3 Seconds Skin: No rashes, No breakdown Musculoskeletal: No Tenderness to Palpation of Joints or Extremities Neurological: Generalized confused, nonfocal exam. Complete neuroexam unobtainable. Psych/Mental Status: Flat affect. 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 Patient was recently diagnosed with a pulmonary mass and is currently being worked up. Had recently been treated for pneumonia with cefdinir 1. Acute encephalopathy ? Etiology not clear. Patient underwent evaluation with CT of the head which was negative for acute CVA ? 06/20/2023;Patient did experience intermittent episodes of confusion during the evening given her history of alcohol use patient was started on phenobarb taper. Also ordered MRI of the brain with and without contrast given the finding of a lung mass. ? 06/21/2023; phenobarb taper discontinued after discussion with patient . The patient has been patient did not drink any alcohol 2 weeks prior to her admission. 2. Right upper lobe pneumonia -?? Postobstructive pneumonia patient has significant leukocytosis. Patient started on Zosyn and vancomycin to cover for multidrug-resistant organisms ? 06/20/2023; CT of the abdomen pelvis and chest did show 3.7 cm x 3.3 cm mass in the lateral aspect of the right upper lobe. 5.6 mm faint nodule seen in the posterior aspect of the right upper lobe.There is a 4.5 cm x 4 cm x 5 cm heterogeneous mass in the distal ileum. Bladder wall thickening although bladder is not completely distended at this time.. An order was given for patient to undergo CT-guided biopsy on 06/22/2023 3. Lung mass ? CT of the abdomen pelvis and chest ordered for subsequent eval plan is for patient to follow-up with pulmonary medicine when medically stable 06/21: Plan for lung biopsy today. 4. Acute CVA ? MRI demonstrated Multiple small acute right cerebral and basal ganglia infarcts, likely embolic in etiology. CT of the head and neck does not show evidence for large vessel occlusion in the [place] region but severe stenosis and near occlusion of the proximal right internal carotid artery in the neck with string of flow. Otherwise mild diffuse narrowing of the caliber of the right ICA mid to distal neck and intracranial portion without significant stenosis or occlusion. [facility] teleneuro patient started on antiplatelet therapy as well as statin therapy ordered 2D echo and consultation placed to vascular surgery regarding patient severe carotid artery stenosis 06/21: Discussed with the vascular surgeon Dr. Raman and recommended right CEA after other ongoing medical issues are stabilized including biopsy of the lung mass and GI bleed 5. Anemia - Secondary to chronic disorder/underlying malignancy monitoring H&H and transfuse if patient becomes symptomatic or hemoglobin falls below 7. With the patient hemoglobin being low at 6.1 did undertake iron studies, B12 as well as ferritin levels and order was given for patient to be transfused 1 unit PRBC ? 06/20/2023; patient was seen by Dr. Clement with GI recommendations for patient to undergo both upper and lower endoscopic evaluation ?06/21/2023; EGD by Dr. Clement on 06/28/2023 for results as below 06/21: Hemoglobin dropped to 6.2. from 7.4. 1 unit of PRBC transfusion ordered. Impressions : - No gross lesions in the entire esophagus. - Non-bleeding gastric ulcer with no stigmata of bleeding. Biopsied. - Non-bleeding duodenal ulcer with no stigmata of bleeding. Recommendations : - [facility] to [facility] for [facility] care. - Clear liquid diet. - Continue present medications. - Await pathology results. ?Patient is scheduled to undergo colonoscopy on 06/22/2023. 6. Hypertension - Blood pressure controlled, home medications continued with dose adjustment as needed 7. COPD with acute exacerbation - Patient started on bronchodilator treatment, systemic steroid as well as antibiotic therapy. Patient placed on oxygen titrated to keep saturation greater than 90. 8. Tobacco dependence - Counseled on cessation, offered nicotine patch for tobacco cravings 9. CT evidence of old lacunar infarct ? Patient was started on antiplatelet therapy with aspirin held given her significant anemia 10. Hypokalemia -Corrected per protocol, repeat labs ordered for a.m. 11. DVT prophylaxis ? Patient has been started on enoxaparin discontinued given her significant anemia. Initiated SCDs. Plan is to resume Lovenox once colonoscopy does not reveal any evidence of GI bleed Time spent in the patient's overall evaluation,decision-making process, review of diagnostic data, adjustment of management, discussion with other providers, nursing nursing and ancillary staff involved in patient's care documentation 45 minutes Charges/Coding Visit Charges Inpatient E&M: 77520 Subs Hosp L3
[2023-06-22] MEDS: 0.9% Normal Saline (250mL Bag) 250 ML 15 ML IV (09:12)
[2023-06-22] MEDS: Midazolam 2 MG/2 ML Syringe IV ×2 (09:13→09:29)
[2023-06-22] MEDS: fentaNYL 100 MCG/2 ML Ampul IV (09:14)
[2023-06-22] MEDS: Lidocaine 2% (20 ml mdv) 20 ML Vial INFILT (09:34)
--- NOTE | 2023-06-22 09:55 | RAD_ITS ---
STUDY: X-RAY CHEST REASON FOR EXAM: Female, 57 years old. Immediate post lung biopsy TECHNIQUE: AP inspiration and expiration views. COMPARISON: Comparison is made with prior study done earlier in the day. FINDINGS: Immediate post right lung biopsy radiographs. No evidence of pneumothorax. RAD/Chest Insp/Exp 2 View IMPRESSION: No evidence of pneumothorax on the immediate post right lung biopsy radiographs. Electronically Signed: Tomas Palmer MD at 10:47 EDT ,
[2023-06-22] MEDS: Vancomycin HCl 1,500 MG in 0.9% Normal Saline (500mL Bag) 500 ML 250 MG IV (11:02)
--- NOTE | 2023-06-22 11:28 | PRO.PCM_ITS ---
Procedure Report Date of Procedure: 06/22/23 Assessment & Plan Assessment/Plan (1) Lung mass: PLAN: PROCEDURE: CT GUIDED CORE NEEDLE LUNG BIOPSY ORDERING PROVIDER: Dr. Robbins INDICATION: Female, 57 years old. Right upper lobe lung mass. PROVIDER: SHREE Snyder CONSENT: Written informed consent was obtained having explained the risks, benefits and alternatives in detail with the patient and patient's via phone who accepted the risks and agreed to proceed. Laboratory review and clinical assessment was performed. PRE-PROCEDURE SEDATION ASSESSMENT: Current history and physical dictated by referring physician and reviewed. No clinical changes since date of exam. Patient has an ASA Class of 2. PROCEDURAL SEDATION PROTOCOL: The Drugs used were: 1 mg Versed, IV, and 25 mcg Fentanyl, IV. The sedation time was: 17 minutes, starting at 9:13 AM and terminated at 9:45 AM. The procedural sedation protocol was independently monitored by the department nurse. RADIATION DOSAGE (If Supplied By Facility): CTDIvol = 12.95 mGy, DLP = 472.66 mGycm Individualized dose optimization techniques were used for this CT. TECHNIQUE: The patient was placed in a supine position. A noncontrast CT was performed to localize the lesion in the right upper lobe. The skin surface was prepped and draped in a sterile fashion. 2% lidocaine was used for local anesthesia. Using CT guidance, a 20-gauge coaxial biopsy device was advanced to the periphery of the lesion. A total of 5 core specimens were obtained. Specimens were microscopically reviewed by pathology in the CT suite and placed in formalin solution. BioSentry tract sealant system was deployed at the biopsy site, and the biopsy needle was removed. A sterile occlusive dressing was applied to the biopsy site. The patient tolerated the procedure well. An immediate chest xray was ordered, per protocol. A negative biopsy does not exclude malignancy. Further imaging or clinical followup based on patient condition and degree of clinical suspicion for malignancy. Suggest rebiopsy, if biopsy results do not match with clinical scenario. IMPRESSION: 1. CT directed core needle biopsy of right upper lobe mass using CT image guid ance with image documentation as described. Pathology results are pending. 2. Procedural Sedation protocol utilized with independent monitoring by the department nurse. Procedures Radiology Radiology CT Procedures: [id number] Biopsy Lung
[2023-06-22] MEDS: Multivitamins,Ther W-Minerals Tablet 1 TABLET PO (12:57)
[2023-06-22] MEDS: Potassium Chloride Oral Tablet 20 MEQ PO ×2 (12:57→18:05)
[2023-06-22] MEDS: Iron Polysaccharide Complex 150 MG CAPSULE PO (12:57)
[2023-06-22] MEDS: Pantoprazole Sodium 40 MG Tablet PO (12:58)
[2023-06-22] MEDS: Thiamine Hydrochloride 100 MG Tablet PO (12:58)
[2023-06-22] MEDS: Folic Acid 1 MG Tablet PO (12:59)
[2023-06-22] MEDS: Aspirin 81 MG TAB.CHEW PO (12:59)
--- NOTE | 2023-06-22 13:06 | RAD_ITS ---
STUDY: X-RAY CHEST REASON FOR EXAM: Female, 57 years old. Post lung biopsy -- Immediately post lung biopsy TECHNIQUE: AP inspiration and expiration views. COMPARISON: Comparison is made with prior images performed earlier today. FINDINGS: 2 hours post right lung biopsy radiographs. No evidence of pneumothorax. RAD/Chest Insp/Exp 2 View IMPRESSION: No evidence of pneumothorax on the two-hour post right lung biopsy radiographs. Electronically Signed: Tomas Palmer MD at 14:03 EDT ,
[2023-06-22] MEDS: 0.9% Normal Saline (1000mL) 1,000 ML 100 ML IV (13:20)
--- NOTE | 2023-06-22 13:22 | NURSING ---
NIHSS and VS late d/t to pt having EEG and CXR.
[2023-06-22 13:59] LABS: Pathologist Review Reviewed
[2023-06-22 14:02] LABS: Pathologist Review Reviewed
[2023-06-22] MEDS: 0.9% Saline Lock 10 ML Syringe IV (14:49)
[2023-06-22 16:06] LABS: Pathologist Review Reviewed
[2023-06-22 16:14] LABS: Pathologist Review Reviewed
--- NOTE | 2023-06-22 16:21 | STROKE.PNOTE ---
Objective Data Objective Data Vital Signs: Vital Signs Temp Pulse Resp BP Pulse Ox O2 Del Method O2 Flow Rate 98.0 F 119 H 18 132/61 H 96 Nasal Cannula 2 06/22/23 15:02 06/22/23 15:02 06/22/23 15:02 06/22/23 15:02 06/22/23 15:02 06/22/23 15:02 06/22/23 15:02 Oxygen Flow Rate (L/min) 2 Oxygen Delivery Method Nasal Cannula Weight: 62.7 kg Body Mass Index (BMI) 23.7 Intake & Output: Intake and Output for Last 24 Hours 06/20/23 06/21/23 06/22/23 23:59 23:59 23:59 Intake Total 1040 / 1040 4100.00 / 4100.00 1756.08 / 1756.08 Output Total 900 / 900 1250 / 1250 450 / 450 Balance 140 / 140 2850.00 / 2850.00 1306.08 / 1306.08 Medical Nutrition Assessment Dietitian: Malnutrition Criteria Met Start: 06/19/23 16:32 Freq: Status: Active Protocol: Document 06/19/23 16:32 AG (Rec: 06/19/23 16:32 AG [id number]) Nutrition Malnutrition Evidence of Malnutrition Exists Yes Malnutrition (severe): Acute Illness/Injury Evidenced By Suboptimal Energy Intake ( Severe),Weight Loss (Severe) Clinical Problem Acute Disease or Injury Related Malnutrition Etiology severe, acute malnutrition related to inadequate energy intake Signs/Symptoms as evidenced by estimated PO intake meeting <50% of estimated energy needs > 5 days, unintentional 9% wt loss < 2 months Status Active Problem Recommendation Dietitian Recommendations/Changes regular diet given evidence of malnutrition; 240mL ensure clear TID w/ meals for additional nutrition if consumed Lab / Micro Data 06/22/23 05:58 06/22/23 05:58 Labs: Laboratory Results - last 24 hr 06/19/23 04:40: Diff Path Review Reviewed 06/19/23 14:30: Blood Type A POSITIVE, Antibody Screen NEGATIVE, Crossmatch See Detail 06/20/23 03:50: Diff Path Review Reviewed 06/22/23 05:58: WBC 32.5 H*, RBC 1.97 L, Hgb 6.2 L, Hct 19.0 L, MCV 96.4, MCH 31.5, MCHC 32.6, RDW Std Deviation 52.0 H, RDW Coeff of Bryanna 14.9 H, Plt Count 519 H, MPV 9.0, Immature Gran % (Auto) 2.300 H, Neut % (Auto) 87.5 H, Lymph % (Auto) 5.0 L, [facility] % (Auto) 4.6, Eos % (Auto) 0.3, Baso % (Auto) 0.3, Absolute Neuts (auto) 28.4 H, Absolute Lymphs (auto) 1.64, Nucleated RBC % 0, Diff Path Review Reviewed, PT 15.5 H, INR 1.2, APTT 42.8 H, Sodium 140, Potassium 3.2 L, Chloride 112 H, Carbon Dioxide 21.0, Anion Gap 7, BUN 3 L, Creatinine 0.55, Estim Creat Clear Calc 95.10, Est GFR (MDRD) Af Amer 146, Est GFR (MDRD) Non-Af 121, BUN/Creatinine Ratio 5.5 L, Glucose 98, Calcium 8.1 L, Random Vancomycin 11.7 Micro: Microbiology 06/18/23 13:50 Urine, Catheterized Urine Culture - Final Culture exhibits no growth. 06/18/23 12:35 Blood Culture (Wb) - Right Wrist Blood Culture - Preliminary No growth in 48 hours. 06/18/23 12:20 Blood Culture (Wb) - Arm Left Blood Culture - Preliminary No growth in 48 hours. 06/19/23 11:00 Stool Stool Occult Blood (DOMINGO) - Final Occult Blood Positive 06/18/23 17:54 Mucosa - Nasopharyngeal Respiratory Panel (PCR) - Final 06/18/23 13:50 Urine, Clean Catch Legionella Antigen - Final 06/18/23 13:50 Urine, Clean Catch Streptococcus pneumoniae Antigen (M - Final 06/18/23 13:32 Mucosa - Nose SARS-CoV-2, Influenza & RSV (PCR) - Final Radiography Diagnostic Testing: Radiology Impression Echocardiogram 06/20/23 13:37 Interpretation Summary The estimated ejection fraction is 65 %. No evidence for diastolic dysfunction. Trivial mitral valve insufficiency. Ordering Physician: Parag Robbins Performed By: Andrea Camp RCS Chest X-Ray 06/21/23 16:48 IMPRESSION: There is again noted a masslike opacity in the right upper lung field. Bilateral lower lobe infiltrates. Moderate left effusion. Electronically Signed: Virgilio Lezama DO at 17:48 EDT , Chest X-Ray 06/22/23 13:06 IMPRESSION: No evidence of pneumothorax on the two-hour post right lung biopsy radiographs. Electronically Signed: Tomas Palmer MD at 14:03 EDT , Physical Exam Neuro Neuro Narrative: Neurological Examination: General: The patient appears nutritionally appropriate, well-groomed, and appears comfortable in no acute distress. Mental Status: The patient?s mental status was alert, but slow to answer questions. She had confusion- reported the month as april. Cranial nerves: Visual bryant full, extra-ocular motion was intact. Face motion symmetric. Tongue was midline with normal movement. There was no dysarthria. Motor: Anti-gravity x all 4 extremities. Mild decrease in FFM on left and mild pronator drift. Sensation: Intact light touch bilaterally.. Coordination: Bilateral finger to nose was normal. There was no dysmetria. Gait: deferred Subject: Neurology Subjective CARL PERALTA is a 57 year old F, who we are seeing in consultation today for advice on the management of and related patient care. EEG Results Procedure Details EEG Procedure Details: CARL PERALTA is a 57 year old F with a past medical history of , who presents for evaluation of Electroencephalogram on DATE at TIME Assessment and Plan: Stroke Assessment/Plan CARL PERALTA is a 57 right-hnaded female ex-smoker with a history of EtOH use, COPD, and hypertension who was sent to the ER from pulmonary office on 06/18/2023 with mental status changes and hypotension.. She was diagnosed with PNA and lung mass, as well as a mass in the ileum. CTA shows high-grade CHAPARRITA stenosis. MRI brain DWI + small RMCA infarcts. TTE EF 65%. EGD shows non-bleeding gastric ulcers. Patient planned for CT guided biopsy. Lovenox SQ being held due to anemia, need for transfusion. Vascular surgery consulted. Neurological examination shows mild left hemiparesis and confusion, NIHSS 3 (?-1, LUE-1, aphas-1) ASSESSMENT/PLAN: Acute right MCA ischemic stroke, Symptomatic right high-grade carotid stenosis. 1) Continue aspirin for stroke prevention. On statin. LDL 49. 2) Vascular surgery consulted for symptomatic carotid stenosis-- timing of procedure pending work-up for mass. 3) Continue PT/OT. 4) DVT prophylaxis- On SCDs. Resume lovenox SQ when medically able. Messaged hospitalists Dr. Vinson via backline.
--- NOTE | 2023-06-22 17:21 | PN.GI_ITS ---
Subjective Subjective Patient still continues to have lower GI bleeding. At this time she is refusing to take a prep for colonoscopy to evaluate the mass in her distal ileum. She underwent lung biopsy today. Objective Data Objective Data Vital Signs: Vital Signs Temp Pulse Resp BP Pulse Ox O2 Del Method O2 Flow Rate 99.5 F H 118 H 19 H 138/73 H 96 Nasal Cannula 2 06/22/23 16:10 06/22/23 16:10 06/22/23 16:10 06/22/23 16:10 06/22/23 16:10 06/22/23 16:34 06/22/23 16:34 Oxygen Flow Rate (L/min) 2 Oxygen Delivery Method Nasal Cannula Weight: 138 lb 3.677 oz Body Mass Index (BMI) 23.7 Intake & Output: Intake and Output for Last 24 Hours 06/20/23 06/21/23 06/22/23 23:59 23:59 23:59 Intake Total 1040 / 1040 4100.00 / 4100.00 1756.08 / 1756.08 Output Total 900 / 900 1250 / 1250 450 / 450 Balance 140 / 140 2850.00 / 2850.00 1306.08 / 1306.08 Medical Nutrition Assessment Dietitian: Malnutrition Criteria Met Start: 06/19/23 16:32 Freq: Status: Active Protocol: Document 06/19/23 16:32 AG (Rec: 06/19/23 16:32 [id number]) Nutrition Malnutrition Evidence of Malnutrition Exists Yes Malnutrition (severe): Acute Illness/Injury Evidenced By Suboptimal Energy Intake ( Severe),Weight Loss (Severe) Clinical Problem Acute Disease or Injury Related Malnutrition Etiology severe, acute malnutrition related to inadequate energy intake Signs/Symptoms as evidenced by estimated PO intake meeting <50% of estimated energy needs > 5 days, unintentional 9% wt loss < 2 months Status Active Problem Recommendation Dietitian Recommendations/Changes regular diet given evidence of malnutrition; 240mL ensure clear TID w/ meals for additional nutrition if consumed Lab / Micro Data 06/22/23 05:58 06/22/23 05:58 Labs: Laboratory Results - last 24 hr 06/19/23 04:40: Diff Path Review Reviewed 06/19/23 14:30: Blood Type A POSITIVE, Antibody Screen NEGATIVE, Crossmatch See Detail 06/20/23 03:50: Diff Path Review Reviewed 06/22/23 05:58: WBC 32.5 H*, RBC 1.97 L, Hgb 6.2 L, Hct 19.0 L, MCV 96.4, MCH 31.5, MCHC 32.6, RDW Std Deviation 52.0 H, RDW Coeff of Bryanna 14.9 H, Plt Count 519 H, MPV 9.0, Immature Gran % (Auto) 2.300 H, Neut % (Auto) 87.5 H, Lymph % (Auto) 5.0 L, [place] % (Auto) 4.6, Eos % (Auto) 0.3, Baso % (Auto) 0.3, Absolute Neuts (auto) 28.4 H, Absolute Lymphs (auto) 1.64, Nucleated RBC % 0, Diff Path Review Reviewed, PT 15.5 H, INR 1.2, APTT 42.8 H, Sodium 140, Potassium 3.2 L, Chloride 112 H, Carbon Dioxide 21.0, Anion Gap 7, BUN 3 L, Creatinine 0.55, Estim Creat Clear Calc 95.10, Est GFR (MDRD) Af Amer 146, Est GFR (MDRD) Non-Af 121, BUN/Creatinine Ratio 5.5 L, Glucose 98, Calcium 8.1 L, Random Vancomycin 11.7 Micro: Microbiology 06/18/23 13:50 Urine, Catheterized Urine Culture - Final Culture exhibits no growth. 06/18/23 12:35 Blood Culture (Wb) - Right Wrist Blood Culture - Preliminary No growth in 48 hours. 06/18/23 12:20 Blood Culture (Wb) - Arm Left Blood Culture - Preliminary No growth in 48 hours. 06/19/23 11:00 Stool Stool Occult Blood (DOMINGO) - Final Occult Blood Positive 06/18/23 17:54 Mucosa - Nasopharyngeal Respiratory Panel (PCR) - Final 06/18/23 13:50 Urine, Clean Catch Legionella Antigen - Final 06/18/23 13:50 Urine, Clean Catch Streptococcus pneumoniae Antigen (M - Final 06/18/23 13:32 Mucosa - Nose SARS-CoV-2, Influenza & RSV (PCR) - Final Radiography Diagnostic Testing: Radiology Impression Echocardiogram 06/20/23 13:37 Interpretation Summary The estimated ejection fraction is 65 %. No evidence for diastolic dysfunction. Trivial mitral valve insufficiency. Ordering Physician: Parag Robbins Performed By: Andrea Camp RCS Chest X-Ray 06/21/23 16:48 IMPRESSION: There is again noted a masslike opacity in the right upper lung field. Bilateral lower lobe infiltrates. Moderate left effusion. Electronically Signed: Virgilio Lezama DO at 17:48 EDT , Chest X-Ray 06/22/23 13:06 IMPRESSION: No evidence of pneumothorax on the two-hour post right lung biopsy radiographs. Electronically Signed: Tomas Palmer MD at 14:03 EDT , Physical Exam Const General Appearance: disheveled, lethargic and frail Exam Limitations: altered mental status HEENT Head and Scalp: normocephalic and atraumatic Face and Sinus: face symmetric Nose: external nose normal Neck full ROM General: trachea midline Thyroid: thyroid normal Resp normal respiratory effort, no retractions and no use of accessory muscles Cardio regular rate and regular rhythm Extremity full ROM and no clubbing, cyanosis or edema Skin no rashes or lesions noted, no wounds and no jaundice Neuro moves all extremities and no focal motor deficits Sensorium / Orientation: awake and lethargic Speech: speech normal Psych Appearance: disheveled Speech: slow Assessment & Plan Assessment/Plan (1) Encephalopathy: (2) History of alcohol abuse: (3) Lower GI bleeding: PLAN: Plan The patient is a 57 y/o F with history of fatigue, weakness, confusion and hypertension referred from her pulmonary office with history of recent admission to [facility] and at that time diagnosed with lung mass with new office visit for evaluation of this new mass. She was also discovered to have a significant anemia and a mass in the distal ileum. Significant anemia. Agree with blood transfusion. She should undergo an upper endoscopy to evaluate upper GI tract to look for signs and symptoms of acute on chronic GI blood loss. Currently at this time she is microcytic. She has a reactive thrombocytosis possibly secondary to leukocytosis and or GI blood loss. Acute Encephalopathy, Multifactorial, associated with Possible Acute RUL PNA complicated by recent Lung Mass/SB mass with Underlying malignancy Abnormality in the ileum. She should undergo colonoscopy to evaluate her lower GI tract for lymphoma, adenocarcinoma, carcinoid. She was explained alternatives, risk, benefits including outstanding bleeding, infection, sepsis, perforation, need for emergent urgent . She have an ASA of 3. 06/21/23-she underwent an upper endoscopy yesterday. Findings from the EGD: - No gross lesions in the entire esophagus. - Non-bleeding gastric ulcer with no stigmata of bleeding. Biopsied. - Non-bleeding duodenal ulcer with no stigmata of bleeding. Recommendations : - [facility] care. - Clear liquid diet. - Continue present medications. - Await pathology results. She was not able to undergo colonoscopy. She did have a large f bloody bowel movement prior to the procedure and still continues to have bloody bowel movements. She does need to undergo colonoscopy but it is not safe for her at this time and she is getting a lung biopsy tomorrow. Recommended transfer use blood for hemoglobin less than 7 or hematocrit less than 30% 06/22/23-she received transfusion of 2 units of packed red blood cells. She continues on antibiotic for postobstructive pneumonia. She underwent lung biopsy. She still continues to have lower GI bleeding. I would like to see if this is metastatic disease or a separate lesion such as carcinoid tumor, adenocarcinoma, squamous cell carcinoma or infiltrative disease such as lymphoma. She should only be on a liquid diet so she can have a colonoscopy when she decides that she will take the prep. Continue to follow H&H. Charges/Coding Visit Charges Inpatient E&M: 24161 [facility] Hosp L3
[2023-06-22] MEDS: Bisacodyl 5 MG Tablet 20 MG PO (18:05)
[2023-06-22] MEDS: Acetaminophen 325 MG Tablet 650 MG PO (20:04)
[2023-06-22] MEDS: Polyethylene Glycol 3350 BOWEL PREP PO (20:13)
[2023-06-22] MEDS: Atorvastatin Calcium 80 MG Tablet PO (20:21)
--- NOTE | 2023-06-22 22:40 | RAD_ITS ---
INDICATION: aspiration EXAMINATION/TECHNIQUE: X-RAY - XR Chest 1 View COMPARISON: June 22, 2023 at 13:08 hours FINDINGS: LINES/DEVICES: None. LUNGS: Stable masslike right upper lobe opacity. Persistent left pleural effusion increasing infiltrate. Increasing right pleural effusion and infiltrate. No pneumothorax. MEDIASTINUM AND CARDIOVASCULAR STRUCTURES: Cardiac silhouette not enlarged. Central airways and mediastinal contour are unremarkable. BONES AND SOFT TISSUES: Unremarkable. RAD/Chest 1 View (Portable) IMPRESSION: Stable masslike right upper lobe opacity. Persistent left pleural effusion and increasing infiltrate. Increasing right pleural effusion and infiltrate. Electronically Signed: Virgilio Lezama DO at 23:53 EDT Reading Location ID and State: [facility] / [place] Tel [phone], Service support ,
[2023-06-23] VITALS (16 sets, daily range): BP systolic 86–129; BP diastolic 45–99; PULSE 99–129; RESP 19–36; TEMP 36–39.3; O2SAT 91–100; BMI 22.4
[2023-06-23 01:11] LABS: Allen Test Positive; Base Excess -7 mmol/L (-2 to +2); Blood Gas Specimen Type ART; Mode Not entered; O2 Delivery Device Cannula; PO2 58 mmHG (75-100); SITE R Radial; SO2 92 % (95-99); Total Carbon Dioxide 18 mmol/L; pCO2 23.1 mmHg (35-45); pH 7.48 (7.35-7.45)
[2023-06-23] MEDS: Furosemide 40 MG/4 ML Vial IV (03:01)
[2023-06-23] MEDS: DiphenhydrAMINE 50 MG/ML Syringe 25 MG IV (03:01)
[2023-06-23] MEDS: Piperacil/Tazobactam 3.375 GM in 0.9% Normal Saline (50mL MB+) 50 ML IV ×3 (05:13→21:15)
[2023-06-23] MEDS: Ipratropium/Albuterol Sulfate 3 ML AMPUL.NEB INHALATION ×3 (07:25→20:08)
--- NOTE | 2023-06-23 07:46 | PCM.PN.HOSP ---
Reason for Visit Reason for Visit: Diagnoses Anemia, unspecified (06/18/23) Alcohol abuse, in remission (06/18/23) Encephalopathy, unspecified (06/18/23) Cerebral infarction due to unspecified occlusion or stenosis of unspecified carotid artery (06/18/23) Hypotension, unspecified (06/18/23) Gastrointestinal hemorrhage, unspecified (06/18/23) Other nonspecific abnormal finding of lung field (06/18/23) Objective Data Objective Data Vital Signs: Vital Signs Temp Pulse Resp BP Pulse Ox O2 Del Method O2 Flow Rate 99.5 F H 106 H 31 H 122/51 H 94 Nasal Cannula 4 06/23/23 07:45 06/23/23 03:00 06/23/23 03:00 06/23/23 03:00 06/23/23 03:00 06/23/23 03:00 06/23/23 03:00 Oxygen Flow Rate (L/min) 4 Oxygen Delivery Method Nasal Cannula Weight: 130 lb 11.746 oz Body Mass Index (BMI) 22.4 Intake & Output: Intake and Output for Last 24 Hours 06/21/23 06/22/23 06/23/23 23:59 23:59 23:59 Intake Total 4100.00 / 4100.00 2274.00 / 2474.00 783.33 / 783.33 Output Total 1250 / 1250 1050 / 1050 Balance 2850.00 / 2850.00 1224.00 / 1424.00 783.33 / 783.33 Medical Nutrition Assessment Dietitian: Malnutrition Criteria Met Start: 06/19/23 16:32 Freq: Status: Active Protocol: Document 06/19/23 16:32 AG (Rec: 06/19/23 16:32 [id number]) Nutrition Malnutrition Evidence of Malnutrition Exists Yes Malnutrition (severe): Acute Illness/Injury Evidenced By Suboptimal Energy Intake ( Severe),Weight Loss (Severe) Clinical Problem Acute Disease or Injury Related Malnutrition Etiology severe, acute malnutrition related to inadequate energy intake Signs/Symptoms as evidenced by estimated PO intake meeting <50% of estimated energy needs > 5 days, unintentional 9% wt loss < 2 months Status Active Problem Recommendation Dietitian Recommendations/Changes regular diet given evidence of malnutrition; 240mL ensure clear TID w/ meals for additional nutrition if consumed Lab / Micro Data 06/23/23 08:05 06/23/23 08:05 Labs: Laboratory Results - last 24 hr 06/19/23 04:40: Diff Path Review Reviewed 06/19/23 14:30: Blood Type A POSITIVE, Antibody Screen NEGATIVE, Crossmatch See Detail 06/20/23 03:50: Diff Path Review Reviewed 06/22/23 05:58: Diff Path Review Reviewed 06/23/23 01:08: B-Natriuretic Peptide 434.0 H Micro: Microbiology 06/18/23 13:50 Urine, Catheterized Urine Culture - Final Culture exhibits no growth. 06/18/23 12:35 Blood Culture (Wb) - Right Wrist Blood Culture - Preliminary No growth in 48 hours. 06/18/23 12:20 Blood Culture (Wb) - Arm Left Blood Culture - Preliminary No growth in 48 hours. 06/19/23 11:00 Stool Stool Occult Blood (DOMINGO) - Final Occult Blood Positive 06/18/23 17:54 Mucosa - Nasopharyngeal Respiratory Panel (PCR) - Final 06/18/23 13:50 Urine, Clean Catch Legionella Antigen - Final 06/18/23 13:50 Urine, Clean Catch Streptococcus pneumoniae Antigen (M - Final 06/18/23 13:32 Mucosa - Nose SARS-CoV-2, Influenza & RSV (PCR) - Final ABG Data ABG results: ABG 06/23/23 01:07 Specimen Type ART Sample Site R Radial pH 7.48 H Bicarbonate Actual 17.0 L Total CO2 18 Base Excess -7 L O2 Saturation 92 L O2 % 4.0 ABG pCO2 23.1 L ABG pO2 58 L Michael Test Positive O2 Delivery Device Cannula Vent Mode Not entered Radiography Diagnostic Testing: Radiology Impression Echocardiogram 06/20/23 13:37 Interpretation Summary The estimated ejection fraction is 65 %. No evidence for diastolic dysfunction. Trivial mitral valve insufficiency. Ordering Physician: Parag Robbins Performed By: Andrea Camp RCS Chest X-Ray 06/22/23 13:06 IMPRESSION: No evidence of pneumothorax on the two-hour post right lung biopsy radiographs. Electronically Signed: Tomas Palmer MD at 14:03 EDT , Chest X-Ray 06/22/23 22:40 IMPRESSION: Stable masslike right upper lobe opacity. Persistent left pleural effusion and increasing infiltrate. Increasing right pleural effusion and infiltrate. Electronically Signed: Virgilio Lezama DO at 23:53 EDT , Physical Exam Narrative Seen and examined the patient of patient's RN. Patient has multiple active issues and very sick. I talked to the patient's son near the bedside who is main caregiver. Physical exam General: Awake, disoriented to time and person. Answer simple question HEENT: Atraumatic, PERRLA, EOMI, Normocephalic Oral: Oral mucosa dry. No Gingival or Mucosal Lesions/ Ulcerations Neck: Supple, No JVD, could not hear bruits does not follow commands Chest wall/Lungs: Air entry diminished in bilateral lung bases. No crepitation/rhonchi. On 4 L of oxygen. Cardiovascular: Sinus tachycardia normal S1, Normal S2, No M/G/R Abdomen: Bowel Sounds Present, Soft, Non Tender, Non-Distended : No dysuria. No renal angle tenderness. No suprapubic tenderness. Extremities: No edema, Capillary Refill Less than 3 Seconds Skin: No rashes, No breakdown Musculoskeletal: No Tenderness to Palpation of Joints or Extremities. Mild degenerative arthritis of knees Neurological: Awake. Language deficit/aphasia, NIHSS 4. Psych/Mental Status: Flat affect. 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 Patient was recently diagnosed with a pulmonary mass and is currently being worked up. Had recently been treated for pneumonia with cefdinir 1. Acute encephalopathy ? Etiology not clear. Patient underwent evaluation with CT of the head which was negative for acute CVA ? 06/20/2023;Patient did experience intermittent episodes of confusion during the evening given her history of alcohol use patient was started on phenobarb taper. Also ordered MRI of the brain with and without contrast given the finding of a lung mass. ? 06/21/2023; phenobarb taper discontinued after discussion with patient . The patient has been patient did not drink any alcohol 2 weeks prior to her admission. 06/22: Patient mental status better than yesterday. Still sometimes unaware and confused and disoriented. 2. Right upper lobe pneumonia -?? Postobstructive pneumonia patient has significant leukocytosis. Patient started on Zosyn and vancomycin to cover for multidrug-resistant organisms ? 06/20/2023; CT of the abdomen pelvis and chest did show 3.7 cm x 3.3 cm mass in the lateral aspect of the right upper lobe. 5.6 mm faint nodule seen in the posterior aspect of the right upper lobe.There is a 4.5 cm x 4 cm x 5 cm heterogeneous mass in the distal ileum. Bladder wall thickening although bladder is not completely distended at this time.. An order was given for patient to undergo CT-guided biopsy on 06/22/202306/22, patient did spike fever yesterday. ID consult requested. Immature granulocyte 1.1%. Discussed with ID continue same antibiotic. Positive fever may be from tumor/paraneoplastic syndrome. 3. Lung mass ? CT of the abdomen pelvis and chest ordered for subsequent eval plan is for patient to follow-up with pulmonary medicine when medically stable 06/21: Plan for lung biopsy today. 06/21 lung biopsy was done. Postprocedure x-ray did not show pneumothorax. 4. Acute CVA/acute right MCA ischemic stroke ? MRI demonstrated Multiple small acute right cerebral and basal ganglia infarcts, likely embolic in etiology. CT of the head and neck does not show evidence for large vessel occlusion in the [place] region but severe stenosis and near occlusion of the proximal right internal carotid artery in the neck with string of flow. Otherwise mild diffuse narrowing of the caliber of the right ICA mid to distal neck and intracranial portion without significant stenosis or occlusion. [facility] teleneuro patient started on antiplatelet therapy as well as statin therapy ordered 2D echo and consultation placed to vascular surgery regarding patient severe carotid artery stenosis 06/21: Discussed with the vascular surgeon Dr. Raman and recommended right CEA after other ongoing medical issues are stabilized including biopsy of the lung mass and GI bleed 06/22: Discussed with the [facility] neurologist. LDL 49. Continue aspirin. 5. Anemia - Secondary to chronic disorder/underlying malignancy monitoring H&H and transfuse if patient becomes symptomatic or hemoglobin falls below 7. With the patient hemoglobin being low at 6.1 did undertake iron studies, B12 as well as ferritin levels and order was given for patient to be transfused 1 unit PRBC ? 06/20/2023; patient was seen by Dr. Clement with GI recommendations for patient to undergo both upper and lower endoscopic evaluation ?06/21/2023; EGD by Dr. Clement on 06/28/2023 for results as below 06/21: Hemoglobin dropped to 6.2. from 7.4. 1 unit of PRBC transfusion ordered. Impressions : - No gross lesions in the entire esophagus. - Non-bleeding gastric ulcer with no stigmata of bleeding. Biopsied. - Non-bleeding duodenal ulcer with no stigmata of bleeding. Recommendations : - [facility] to [facility] care. - Clear liquid diet. - Continue present medications. - Await pathology results. ?Patient is scheduled to undergo colonoscopy on 06/22/2023. 06/22: Severe anemia. Patient had PRBC transfusion. Posttransfusion CBC, H&H 8.1/24%. Platelet count 567,000. Critical high WBC count. On leukocytosis 6. Hypertension - Blood pressure controlled, home medications continued with dose adjustment as needed 7. COPD with acute exacerbation - Patient started on bronchodilator treatment, systemic steroid as well as antibiotic therapy. Patient placed on oxygen titrated to keep saturation greater than 90. 8. Tobacco dependence - Counseled on cessation, offered nicotine patch for tobacco cravings 9. CT evidence of old lacunar infarct ? Patient was started on antiplatelet therapy with aspirin held given her significant anemia 10. Hypokalemia -Corrected per protocol, repeat labs ordered for a.m. 11. DVT prophylaxis ? Patient has been started on enoxaparin discontinued given her significant anemia. Initiated SCDs. Plan is to resume Lovenox once colonoscopy does not reveal any evidence of GI bleed Time spent in the patient's overall evaluation,decision-making process, review of diagnostic data, adjustment of management, discussion with other providers, nursing nursing and ancillary staff involved in patient's care documentation 45 minutes Total time of the visit including total time spent in counseling or coordination of care, (more than 50% of the total time, spent in obtaining medical information from nurses and other ancillary care providers,explaining to the patient about labs, imaging, diagnosis and management of active complex medical conditions), multiple consultants including ID, neuro and GI, clinical update, prognosis discussion with the patient and son, review of labs and imaging is 45 minutes. Charges/Coding Visit Charges Inpatient E&M: 90781 Subs Hosp L3
[2023-06-23 09:12] LABS: ALB/GLOB Ratio 0.4 RATIO (0.9-2.4); AST(SGOT) 17 U/L (15-37); Alanine Aminotransfer ALT/SGPT 17 U/L (13-56); Albumin, Serum 1.6 g/dL (3.2-5.0); Alkaline Phosphatase 109 U/L (45-117); Anion Gap 10 (5-15); BUN 5 mg/dL (7-18); BUN/Creat Ratio 7.6 RATIO (10-20); Calcium,Total 8.6 mg/dL (8.5-10.1); Chloride 109 mmol/L (98-107); Creatinine, Serum 0.65 mg/dL (0.55-1.02); EST Glomerular Filtration Rate 98 mL/min (>60); Est Glom Filt Rate - Afr Amer 119 mL/min (>60); Estimated Creatinine Clearance 80.47 ml/min; Globulin 4.3 g/dL (2.2-4.2); Glucose 104 mg/dL (74-106); Potassium 2.7 mmol/L (3.5-5.1); Protein, Total 5.9 g/dL (6.4-8.2); Sodium Level 140 mmol/L (136-145)
[2023-06-23] MEDS: Vancomycin HCl 1,500 MG in 0.9% Normal Saline (500mL Bag) 500 ML 250 MG IV (09:40)
[2023-06-23] MEDS: Folic Acid 1 MG Tablet PO (09:43)
[2023-06-23] MEDS: Aspirin 81 MG TAB.CHEW PO (09:43)
[2023-06-23] MEDS: Pantoprazole Sodium 40 MG Tablet PO (09:43)
[2023-06-23] MEDS: Thiamine Hydrochloride 100 MG Tablet PO (09:45)
[2023-06-23] MEDS: Iron Polysaccharide Complex 150 MG CAPSULE PO (09:46)
[2023-06-23] MEDS: Potassium Chloride Oral Tablet 20 MEQ PO ×2 (09:46→17:08)
[2023-06-23] MEDS: Acetaminophen 325 MG Tablet 650 MG PO ×2 (09:54→21:11)
--- NOTE | 2023-06-23 10:15 | PCM.CONS.GEN ---
Assessment & Plan Assessment/Plan (1) Carotid stenosis, symptomatic, with infarction: (2) Encephalopathy: (3) COPD (chronic obstructive pulmonary disease): (4) History of alcohol abuse: (5) Lung mass: (6) Fever: PLAN: Fever possibly related to undiagnosed malignancy. Cxs neg so far. Resp pcr panel neg. Recently on cefdinir for pneumonia. Wbc improved from admit. Procal was high on admit at 0.6. UAgs neg. Lung bx done 06/21, colonoscopy planned. Cont vanc/zosyn. Will also check CEA and CA 19-9. Will follow, thank you, lalitha Vinson HPI Consult Data Date of Consult: 06/23/23 HPI Narrative Reason for Consultation: fever HPI Narrative: CARL PERALTA, is a 57 F with h/o COPD, etoh abuse, presented to ED 06/17 with acute onset fatigue, weakness, confusion. Recently found to have lung and small bowel mass at [facility], given course of cefdinir at discharge 06/13/23. Admitted here on vanc/zosyn, MRI showed embolic stroke. Pt remains confused, unable to provide history or ROS. Lung biopsy done yesterday, colonoscopy planned. Fever overnight to 103.1. FOR[facility]LY [facility] Medical History Chronic anemia COPD (chronic obstructive pulmonary disease) Former tobacco use History of alcohol abuse Iron deficiency Lung mass Small bowel mass Home Medications cefdinir 300 mg capsule 300 mg PO Q12H 06/18/23 [History Last Taken 06/17/23] ferrous fumarate 324 mg (106 mg iron) tablet (Ferrocite) 324 mg PO DAILY 06/18/23 [History Last Taken 06/17/23] folic acid 1 mg tablet 1 mg PO DAILY 06/18/23 [History Last Taken 06/17/23] magnesium oxide 400 mg (241.3 mg magnesium) tablet 400 mg PO TID 06/18/23 [History Last Taken 06/17/23] thiamine HCl (vitamin B1) 100 mg tablet 100 mg PO DAILY 06/18/23 [History Last Taken 06/17/23] Allergy/AdvReac Type Severity Reaction Status Date / Time No Known Allergies Allergy Verified 06/18/23 11:51 Family History Mother Heart disease Hypertension Myocardial infarction CAD (coronary artery disease) Father Brain cancer Surgical History History of dental surgery Social History household members: spouse Smoking Status: Current every day smoker tobacco type: cigarettes how long ago did patient quit smoking: Quit 2 wks prior to admission, smoked 1 ppd intermittently since teen. alcohol intake: former details: Sober x 2 weeks, 1/4-1/3 of 1L vodka daily. substance use type: does not use Physical Exam Const General Appearance: lethargic Orientation / Consciousness: confused HEENT normocephalic and head/scalp atraumatic Eyes PERRL and EOMs intact bilaterally Neck supple and No nodes Resp clear to auscultation bilaterally Auscultation: diminished lung sounds Cardio regular rate and regular rhythm GI soft to palpation, non-tender and non-distended Extremity General Extremity: Negative for edema Skin no rashes or lesions noted Neuro CN's II-XII intact bilaterally Medical Records Data Medical Nutrition Assessment Dietitian: Malnutrition Criteria Met Start: 06/19/23 16:32 Freq: Status: Active Protocol: Document 06/19/23 16:32 (Rec: 06/19/23 16:32 [id number]) Nutrition Malnutrition Evidence of Malnutrition Exists Yes Malnutrition (severe): Acute Illness/Injury Evidenced By Suboptimal Energy Intake ( Severe),Weight Loss (Severe) Clinical Problem Acute Disease or Injury Related Malnutrition Etiology severe, acute malnutrition related to inadequate energy intake Signs/Symptoms as evidenced by estimated PO intake meeting <50% of estimated energy needs > 5 days, unintentional 9% wt loss < 2 months Status Active Problem Recommendation Dietitian Recommendations/Changes regular diet given evidence of malnutrition; 240mL ensure clear TID w/ meals for additional nutrition if consumed Lab / Micro Data Attestation: I reviewed the patient's lab results. 06/22/23 05:58 06/23/23 08:05 Labs: Laboratory Results - last 24 hr 06/19/23 04:40: Diff Path Review Reviewed 06/19/23 14:30: Blood Type A POSITIVE, Antibody Screen NEGATIVE, Crossmatch See Detail 06/20/23 03:50: Diff Path Review Reviewed 06/22/23 05:58: Diff Path Review Reviewed 06/23/23 01:08: B-Natriuretic Peptide 434.0 H 06/23/23 08:05: Sodium 140, Potassium 2.7 L*, Chloride 109 H, Carbon Dioxide 21.0, Anion Gap 10, BUN 5 L, Creatinine 0.65, Estim Creat Clear Calc 80.47, Est GFR (MDRD) Af Amer 119, Est GFR (MDRD) Non-Af 98, BUN/Creatinine Ratio 7.6 L, Glucose 104, Calcium 8.6, Total Bilirubin 0.80, AST 17, ALT 17, Alkaline Phosphatase 109, Total Protein 5.9 L, Albumin 1.6 L, Globulin 4.3 H, Albumin/Globulin Ratio 0.4 L ABG Data ABG results: ABG 06/23/23 01:07 Specimen Type ART Sample Site R Radial pH 7.48 H Bicarbonate Actual 17.0 L Total CO2 18 Base Excess -7 L O2 Saturation 92 L O2 % 4.0 ABG pCO2 23.1 L ABG pO2 58 L Michael Test Positive O2 Delivery Device Cannula Vent Mode Not entered Imaging Radiology Impression Echocardiogram 06/20/23 13:37 Interpretation Summary The estimated ejection fraction is 65 %. No evidence for diastolic dysfunction. Trivial mitral valve insufficiency. Ordering Physician: Parag Robbins Performed By: Andrea Camp RCS Chest X-Ray 06/22/23 13:06 IMPRESSION: No evidence of pneumothorax on the two-hour post right lung biopsy radiographs. Electronically Signed: Tomas Palmer MD at 14:03 EDT , Chest X-Ray 06/22/23 22:40 IMPRESSION: Stable masslike right upper lobe opacity. Persistent left pleural effusion and increasing infiltrate. Increasing right pleural effusion and infiltrate. Electronically Signed: Virgilio Lezama DO at 23:53 EDT ,
[2023-06-23 12:17] LABS: Absolute Lymphocyte Count 1.78 X10^3/uL (0.83-4.51); Absolute Neutrophil Count 32.1 X10^3/uL (2.0-7.7); Basophil# 0.16 X10^3/uL; Basophil% 0.4 % (0-1); Eosinophil# 0.06 X10^3/uL; Eosinophils% 0.2 % (0-5); Hematocrit 24.8 % (37-47); Hemoglobin 8.1 g/dL (12.0-15.0); Lymphocyte # 1.78 X10^3/ul (0.83-4.51); Lymphocyte % 4.9 % (19-41); Mean Corp Hgb Conc 32.7 g/dL (32-36); Mean Corpuscular Hgb 30.7 pg (27.0-32.0); Mean Corpuscular Volume 93.9 fL (81-99); Mean Platelet Vol. 9.6 fl (6.2-12.0); Monocyte# 1.55 X10^3/uL; Monocyte% 4.3 % (0-10); NRBC Flagged by Analyzer 0 % (0-5); Neutrophil # 32.07 X10^3/uL (2.7-7.7); Neutrophil % 89.1 % (47-70); POSITIVE COUNT YES; POSITIVE DIFFERENTIAL YES; Platelet Count 567 K/mm3 (150-450); RBC Distribution Width CV 15.1 % (11.6-14.6); RBC Distribution Width SD 51.4 fl (35.1-43.9); Red Blood Count 2.64 M/mm3 (4.2-5.4)
[2023-06-23 12:27] LABS: Differential Indicated SCAN CRITERIA MET
[2023-06-23] MEDS: Magnesium Chloride 64 MG Delay Rel.Tablet 128 MG PO ×2 (13:38→21:13)
[2023-06-23] MEDS: Multivitamins,Ther W-Minerals Tablet 1 TABLET PO (13:38)
[2023-06-23] MEDS: Potassium Chloride 10mEq/100mL 10 MEQ/100 ML IV.SOLN. 100 MEQ IV BOLUS ×4 (14:26→17:09)
--- NOTE | 2023-06-23 17:53 | PN.SURG_ITS ---
Subjective Subjective Patient seen resting in bed. She is noted to be alert and interactive, answering most questions appropriately. She recently finished drinking her prep for colonoscopy tomorrow. She reports she does feel better than yesterday though very fatigued. She feels that her lower extremity weakness is a bit better, she did walk to the bathroom with assistance. Objective Data Objective Data Vital Signs: Vital Signs Temp Pulse Resp BP Pulse Ox O2 Del Method O2 Flow Rate 97.3 F L 99 19 H 98/66 95 Nasal Cannula 2 06/23/23 15:50 06/23/23 15:57 06/23/23 15:57 06/23/23 15:50 06/23/23 15:50 06/23/23 15:50 06/23/23 15:50 Oxygen Flow Rate (L/min) 2 Oxygen Delivery Method Nasal Cannula Weight: 130 lb 11.746 oz Body Mass Index (BMI) 22.4 Intake & Output: Intake and Output for Last 24 Hours 06/21/23 06/22/23 06/23/23 23:59 23:59 23:59 Intake Total 4100.00 / 4100.00 2274.00 / 2474.00 4015.00 / 4015.00 Output Total 1250 / 1250 1050 / 1050 Balance 2850.00 / 2850.00 1224.00 / 1424.00 4015.00 / 4015.00 Medical Nutrition Assessment Dietitian: Malnutrition Criteria Met Start: 06/19/23 16:32 Freq: Status: Active Protocol: Document 06/19/23 16:32 (Rec: 06/19/23 16:32 [id number]) Nutrition Malnutrition Evidence of Malnutrition Exists Yes Malnutrition (severe): Acute Illness/Injury Evidenced By Suboptimal Energy Intake ( Severe),Weight Loss (Severe) Clinical Problem Acute Disease or Injury Related Malnutrition Etiology severe, acute malnutrition related to inadequate energy intake Signs/Symptoms as evidenced by estimated PO intake meeting <50% of estimated energy needs > 5 days, unintentional 9% wt loss < 2 months Status Active Problem Recommendation Dietitian Recommendations/Changes regular diet given evidence of malnutrition; 240mL ensure clear TID w/ meals for additional nutrition if consumed Lab / Micro Data 06/23/23 08:05 06/23/23 08:05 Labs: Laboratory Results - last 24 hr 06/19/23 14:30: Crossmatch See Detail 06/21/23 04:40: Diff Path Review Reviewed 06/23/23 01:08: B-Natriuretic Peptide 434.0 H 06/23/23 08:05: WBC 36.0 H*, RBC 2.64 L, Hgb 8.1 L, Hct 24.8 L, MCV 93.9, MCH 30.7, MCHC 32.7, RDW Std Deviation 51.4 H, RDW Coeff of Bryanna 15.1 H, Plt Count 567 H, MPV 9.6, Immature Gran % (Auto) 1.100 H, Neut % (Auto) 89.1 H, Lymph % (Auto) 4.9 L, Coryell % (Auto) 4.3, Eos % (Auto) 0.2, Baso % (Auto) 0.4, Absolute Neuts (auto) 32.1 H, Absolute Lymphs (auto) 1.78, Nucleated RBC % 0, Differential Comment COMMENT, Diff Path Review June, Sodium 140, Potassium 2.7 L*, Chloride 109 H, Carbon Dioxide 21.0, Anion Gap 10, BUN 5 L, Creatinine 0.65, Estim Creat Clear Calc 80.47, Est GFR (MDRD) Af Amer 119, Est GFR (MDRD) Non-Af 98, BUN/Creatinine Ratio 7.6 L, Glucose 104, Calcium 8.6, Total Bilirubin 0.80, AST 17, ALT 17, Alkaline Phosphatase 109, Total Protein 5.9 L, Albumin 1.6 L, Globulin 4.3 H, Albumin/Globulin Ratio 0.4 L Micro: Microbiology 06/18/23 12:35 Blood Culture (Wb) - Right Wrist Blood Culture - Final No growth in 5 days. 06/18/23 12:20 Blood Culture (Wb) - Arm Left Blood Culture - Final No growth in 5 days. 06/18/23 13:50 Urine, Catheterized Urine Culture - Final Culture exhibits no growth. 06/19/23 11:00 Stool Stool Occult Blood (DOMINGO) - Final Occult Blood Positive 06/18/23 17:54 Mucosa - Nasopharyngeal Respiratory Panel (PCR) - Final 06/18/23 13:50 Urine, Clean Catch Legionella Antigen - Final 06/18/23 13:50 Urine, Clean Catch Streptococcus pneumoniae Antigen (M - Final 06/18/23 13:32 Mucosa - Nose SARS-CoV-2, Influenza & RSV (PCR) - Final ABG Data ABG results: ABG 06/23/23 01:07 Specimen Type ART Sample Site R Radial pH 7.48 H Bicarbonate Actual 17.0 L Total CO2 18 Base Excess -7 L O2 Saturation 92 L O2 % 4.0 ABG pCO2 23.1 L ABG pO2 58 L Michael Test Positive O2 Delivery Device Cannula Vent Mode Not entered Radiography Diagnostic Testing: Radiology Impression Chest X-Ray 06/22/23 09:55 IMPRESSION: No evidence of pneumothorax on the immediate post right lung biopsy radiographs. Electronically Signed: Tomas Palmer MD at 10:47 EDT , Chest X-Ray 06/22/23 13:06 IMPRESSION: No evidence of pneumothorax on the two-hour post right lung biopsy radiographs. Electronically Signed: Tomas Palmer MD at 14:03 EDT , Chest X-Ray 06/22/23 22:40 IMPRESSION: Stable masslike right upper lobe opacity. Persistent left pleural effusion and increasing infiltrate. Increasing right pleural effusion and infiltrate. Electronically Signed: Virgilio Lezama DO at 23:53 EDT , Physical Exam Const oriented x3 General Appearance: disheveled and frail HEENT Head and Scalp: normocephalic and atraumatic Face and Sinus: face symmetric Nose: external nose normal Neck full ROM General: trachea midline Resp normal respiratory effort, no retractions and no use of accessory muscles Cardio regular rate and regular rhythm Extremity no clubbing, cyanosis or edema Skin no rashes or lesions noted, no wounds and no jaundice Neuro moves all extremities and no focal motor deficits Speech: speech normal Psych Appearance: disheveled Speech: slow Assessment & Plan Assessment/Plan (1) Carotid stenosis, symptomatic, with infarction: PLAN: Her mental status appears improved today. She did have lung biopsy and pathology so far suggestive of adenocarcinoma. Colonoscopy is planned for tomorrow. Plan remains for carotid intervention once medically stabilized. Will continue to follow.
[2023-06-23] MEDS: Atorvastatin Calcium 80 MG Tablet PO (21:13)
[2023-06-23] MEDS: 0.9% Saline Lock 10 ML Syringe IV (21:19)
[2023-06-24] VITALS (17 sets, daily range): BP systolic 84–123; BP diastolic 43–69; PULSE 92–114; RESP 15–40; TEMP 36.4–37.3; O2SAT 93–99; BMI 22.3
--- NOTE | 2023-06-24 | COLBX_PTH ---
PATIENT: CARL PERALTA LOC: [facility] U#:[id number] AGE/SX: 57/F ROOM: [facility] RE06/18/[address]: Dr. Boone Vinson MD : 1965 BED: 1 DIS: 06/26/2023 SPEC #: [id number] RECD: 06/24/23 14:00 STATUS: CEDRICK REQ #: [id number] VIVIANE: 06/24/23 00:[address]: Jose Clement DEPT: SURGICAL PATHOLOGY RECD BY: Lu Paredes ENTERED: 06/24/23 14:01 SP TYPE: COLON BX OTHR DR: MD Dr. Arlen Barrera MD Archana Hinduja, MD Dr. Allison Jordan, DO Dr. Autumn L White, MD Dr. Alicia Zha, MD Danielle Becker, MD Dr. Deepak Gulati, MD Dr. David Kantorowitz, MD Dr. David Kittoe, MD Dr. Eric Turney, MD Dr. Gabriele Pedicelli, MD Dr. Hera Kamdar, MD Dr. Jan Bittar, MD Dr. James Burke, MD Jesse Mindel, MS MD Miguel Arredondo MD LEBRON PAIGE, MD Margaret Beigel, MD Dr. Matthew Gusler, MD Dr. Mansour Isckarus, MD Dr. Maryam Mian, MD Dr. Mohamed Ridha, MD Dr. Mhd Ezzat Zaghlouleh, MD Nabil Khandker, MD Dr. Prakash Chand, MD Dr. Peter Robinson, MD Dr. Robert Field, MD Dr. Rahsaan Friend, DO Dr. Rami Ibrahim, MD Dr. Ryan Jin, MD Dr. Robert Leininger, MD Dr. Vitaliy Macklis, MD Dr. Everton Leatha, MD Cassie Maturu, MD Dr. Damion Lizy, MD Inge Wharton Dr., MD No Primary Care Phys MAXIMO Simon Tissues: Rectum, NOS Procedures: Surgery Specimen Level IV Comments: @ Ordering doctor for KOKIIV edited from to @ by MARTITA at 06/24/23 1502 @ Submitting doctor edited from to @ brice ANDERS at 06/24/23 1502 HEADER OPERATION: Colonoscopy with polypectomy PRE-OP DIAGNOSIS: GI bleeding TISSUE SUBMITTED: Rectal polyp MICROSCOPIC DIAGNOSIS Rectal polyp, polypectomy: Tubular adenoma. HARSH/ 06/25/2023 MICROSCOPIC DESCRIPTION Slides are reviewed. GROSS DESCRIPTION Received in fixative is one container labeled with the patient's name and designated Rectal polyp. The specimen consists of a brito pink polyp measuring 0.7 x 0.6 x 0.5cm. The polyp is bisected and submitted entirely in one cassette. Pippa 06/24/2023 TC:1 CPT:17020
[2023-06-24 05:57] LABS: Carcinoembryonic Antigen 2.6 ng/mL (0.0-4.7)
--- NOTE | 2023-06-24 06:25 | EKG12_ITS ---
Test Reason : AM EKG Blood Pressure : / mmHG Vent. Rate : 108 BPM Atrial Rate : 108 BPM P-R Int : 136 ms QRS Dur : 066 ms QT Int : 334 ms P-R-T Axes : 051 009 057 degrees QTc Int : 447 ms Sinus tachycardia Septal infarct , age undetermined Abnormal ECG When compared with ECG of 20-JUN-2023 05:02, MANUAL COMPARISON REQUIRED, DATA IS UNCONFIRMED Confirmed by DUANE SANDOVAL, GERARDO ([id number]), video editor WAYNE DAVIS ([id number]) on 06/29/2023 10:14:04 AM Referred By: ISIAH Confirmed By:RIO ZEPEDA MD
[2023-06-24] MEDS: Piperacil/Tazobactam 3.375 GM in 0.9% Normal Saline (50mL MB+) 50 ML IV ×3 (06:26→21:00)
[2023-06-24] MEDS: Ipratropium/Albuterol Sulfate 3 ML AMPUL.NEB INHALATION ×3 (06:56→19:31)
[2023-06-24 07:06] LABS: Absolute Lymphocyte Count 1.31 X10^3/uL (0.83-4.51); Absolute Neutrophil Count 32.6 X10^3/uL (2.0-7.7); Basophil# 0.17 X10^3/uL; Basophil% 0.5 % (0-1); Eosinophil# 0.11 X10^3/uL; Eosinophils% 0.3 % (0-5); Hematocrit 21.9 % (37-47); Hemoglobin 7.3 g/dL (12.0-15.0); Lymphocyte # 1.31 X10^3/ul (0.83-4.51); Lymphocyte % 3.6 % (19-41); Mean Corp Hgb Conc 33.3 g/dL (32-36); Mean Corpuscular Hgb 31.3 pg (27.0-32.0); Mean Platelet Vol. 9.1 fl (6.2-12.0); Monocyte# 1.63 X10^3/uL; Monocyte% 4.4 % (0-10); NRBC Flagged by Analyzer 0 % (0-5); Neutrophil # 32.64 X10^3/uL (2.7-7.7); POSITIVE COUNT YES; POSITIVE DIFFERENTIAL YES; Platelet Count 508 K/mm3 (150-450); RBC Distribution Width CV 15.1 % (11.6-14.6); RBC Distribution Width SD 51.8 fl (35.1-43.9); Red Blood Count 2.33 M/mm3 (4.2-5.4)
[2023-06-24 07:08] LABS: Differential Indicated SCAN CRITERIA MET; White Blood Count 36.7 K/mm3 (4.4-11.0)
--- NOTE | 2023-06-24 07:35 | PN.HOSP_ITS ---
Reason for Visit Reason for Visit: Diagnoses Anemia, unspecified (06/18/23) Alcohol abuse, in remission (06/18/23) Encephalopathy, unspecified (06/18/23) Cerebral infarction due to unspecified occlusion or stenosis of unspecified carotid artery (06/18/23) Hypotension, unspecified (06/18/23) Chronic obstructive pulmonary disease, unspecified (06/18/23) Gastrointestinal hemorrhage, unspecified (06/18/23) Fever, unspecified (06/18/23) Other nonspecific abnormal finding of lung field (06/18/23) Objective Data Objective Data Vital Signs: Vital Signs Temp Pulse Resp BP Pulse Ox O2 Del Method O2 Flow Rate 98.6 F 108 H 31 H 123/63 H 97 Nasal Cannula 2 06/24/23 06:00 06/24/23 06:00 06/24/23 06:00 06/24/23 06:00 06/24/23 06:00 06/24/23 06:00 06/24/23 06:00 Oxygen Flow Rate (L/min) 2 Oxygen Delivery Method Nasal Cannula Weight: 129 lb 13.636 oz Body Mass Index (BMI) 22.3 Intake & Output: Intake and Output for Last 24 Hours 06/22/23 06/23/23 06/24/23 23:59 23:59 23:59 Intake Total 2274.00 / 2474.00 4165.00 / 4165.00 Output Total 1050 / 1050 Balance 1224.00 / 1424.00 4165.00 / 4165.00 Medical Nutrition Assessment Dietitian: Malnutrition Criteria Met Start: 06/19/23 16:32 Freq: Status: Active Protocol: Document 06/19/23 16:32 AG (Rec: 06/19/23 16:32 [id number]) Nutrition Malnutrition Evidence of Malnutrition Exists Yes Malnutrition (severe): Acute Illness/Injury Evidenced By Suboptimal Energy Intake ( Severe),Weight Loss (Severe) Clinical Problem Acute Disease or Injury Related Malnutrition Etiology severe, acute malnutrition related to inadequate energy intake Signs/Symptoms as evidenced by estimated PO intake meeting <50% of estimated energy needs > 5 days, unintentional 9% wt loss < 2 months Status Active Problem Recommendation Dietitian Recommendations/Changes regular diet given evidence of malnutrition; 240mL ensure clear TID w/ meals for additional nutrition if consumed Lab / Micro Data 06/24/23 06:50 06/24/23 06:50 Labs: Laboratory Results - last 24 hr 06/21/23 04:40: Diff Path Review Reviewed 06/22/23 05:58: Carcinoembryonic Ag 2.6 06/23/23 08:05: WBC 36.0 H*, RBC 2.64 L, Hgb 8.1 L, Hct 24.8 L, MCV 93.9, MCH 30.7, MCHC 32.7, RDW Std Deviation 51.4 H, RDW Coeff of Bryanna 15.1 H, Plt Count 567 H, MPV 9.6, Immature Gran % (Auto) 1.100 H, Neut % (Auto) 89.1 H, Lymph % (Auto) 4.9 L, [place] % (Auto) 4.3, Eos % (Auto) 0.2, Baso % (Auto) 0.4, Absolute Neuts (auto) 32.1 H, Absolute Lymphs (auto) 1.78, Nucleated RBC % 0, Franc[place]ka[place] tial Comment COMMENT, Diff Path Review June, Sodium 140, Potassium 2.7 L*, Chloride 109 H, Carbon Dioxide 21.0, Anion Gap 10, BUN 5 L, Creatinine 0.65, Estim Creat Clear Calc 80.47, Est GFR (MDRD) Af Amer 119, Est GFR (MDRD) Non-Af 98, BUN/Creatinine Ratio 7.6 L, Glucose 104, Calcium 8.6, Total Bilirubin 0.80, AST 17, ALT 17, Alkaline Phosphatase 109, Total Protein 5.9 L, Albumin 1.6 L, Globulin 4.3 H, Albumin/Globulin Ratio 0.4 L 06/24/23 06:50: WBC 36.7 H*, RBC 2.33 L, Hgb 7.3 L, Hct 21.9 L, MCV 94.0, MCH 31.3, MCHC 33.3, RDW Std Deviation 51.8 H, RDW Coeff of [place]anna 15.1 H, Plt Count 508 H, MPV 9.1, Immature Gran % (Auto) 2.200 H, Neut % (Auto) 89.0 H, Lymph % ( Auto) 3.6 L, [place] % (Auto) 4.4, Eos % (Auto) 0.3, Baso % (Auto) 0.5, Absolute Neuts (auto) 32.6 H, Absolute Lymphs (auto) 1.31, Nucleated RBC % 0 Micro: Microbiology 06/18/23 12:35 Blood Culture (Wb) - Right Wrist Blood Culture - Final No growth in 5 days. 06/18/23 12:20 Blood Culture (Wb) - Arm Left Blood Culture - Final No growth in 5 days. 06/18/23 13:50 Urine, Catheterized Urine Culture - Final Culture exhibits no growth. 06/19/23 11:00 Stool Stool Occult Blood (DOMINGO) - Final Occult Blood Positive 06/18/23 17:54 Mucosa - Nasopharyngeal Respiratory Panel (PCR) - Final 06/18/23 13:50 Urine, Clean Catch Legionella Antigen - Final 06/18/23 13:50 Urine, Clean Catch Streptococcus pneumoniae Antigen (M - Final 06/18/23 13:32 Mucosa - Nose SARS-CoV-2, Influenza & RSV (PCR) - Final Radiography Diagnostic Testing: Radiology Impression Chest X-Ray 06/22/23 09:55 IMPRESSION: No evidence of pneumothorax on the immediate post right lung biopsy radiographs. Electronically Signed: Tomas Palmer MD at 10:47 EDT , Chest X-Ray 06/22/23 13:06 IMPRESSION: No evidence of pneumothorax on the two-hour post right lung biopsy radiographs. Electronically Signed: Tomas Palmer MD at 14:03 EDT , Chest X-Ray 06/22/23 22:40 IMPRESSION: Stable masslike right upper lobe opacity. Persistent left pleural effusion and increasing infiltrate. Increasing right pleural effusion and infiltrate. Electronically Signed: Virgilio Lezama DO at 23:53 EDT , Physical Exam Narrative Seen and examined Discussed with patient's RN. Patient has multiple active issues and very sick. I talked to the patient's son near the bedside who is main caregiver. Mild low- grade temperature. Physical exam General: Awake, oriented x 3. Answers questions and understands it. Oral: Oral mucosa dry. No Gingival or Mucosal Lesions/ Ulcerations Neck: Supple, No JVD, could not hear bruits does not follow commands Chest wall/Lungs: Air entry diminished in bilateral lung bases. No crepitation/rhonchi. On room air. Cardiovascular: Sinus tachycardia normal S1, Normal S2, No M/G/R Abdomen: Bowel Sounds Present, Soft, Non Tender, Non-Distended : No dysuria. No renal angle tenderness. No suprapubic tenderness. Extremities: No edema, Capillary Refill Less than 3 Seconds Skin: No rashes, No breakdown Musculoskeletal: No Tenderness to Palpation of Joints or Extremities. Mild degenerative arthritis of knees Neurological: Awake. Language function and dysarthria has improved. No dysphagia. NIH scale improved. Psych/Mental Status: Flat affect. 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 Patient was recently diagnosed with a pulmonary mass and is currently being worked up. Had recently been treated for pneumonia with cefdinir 1. Acute encephalopathy ? Etiology not clear. Patient underwent evaluation with CT of the head which was negative for acute CVA ? 06/20/2023;Patient did experience intermittent episodes of confusion during the evening given her history of alcohol use patient was started on phenobarb taper. Also ordered MRI of the brain with and without contrast given the finding of a lung mass. ? 06/21/2023; phenobarb taper discontinued after discussion with patient . The patient has been patient did not drink any alcohol 2 weeks prior to her admission. 06/22: Patient mental status better than yesterday. Still sometimes unaware and confused and disoriented. 06/23: Acute encephalopathy has resolved. 2. Right upper lobe pneumonia -?? Postobstructive pneumonia patient has significant leukocytosis. Patient started on Zosyn and vancomycin to cover for multidrug-resistant organisms ? 06/20/2023; CT of the abdomen pelvis and chest did show 3.7 cm x 3.3 cm mass in the lateral aspect of the right upper lobe. 5.6 mm faint nodule seen in the posterior aspect of the right upper lobe.There is a 4.5 cm x 4 cm x 5 cm heterogeneous mass in the distal ileum. Bladder wall thickening although bladder is not completely distended at this time.. An order was given for patient to undergo CT-guided biopsy on 06/22/202306/22, patient did spike fever yesterday. ID consult requested. Immature granulocyte 1.1%. Discussed with ID continue same antibiotic. Positive fever may be from tumor/paraneoplastic syndrome. 3. Lung mass ? CT of the abdomen pelvis and chest ordered for subsequent eval plan is for patient to follow-up with pulmonary medicine when medically stable 06/21: Plan for lung biopsy today. 06/21 lung biopsy was done. Postprocedure x-ray did not show pneumothorax. 06/23: Lung biopsy pathology shows known cell lung cancer, adenocarcinoma, poorly differentiated NSCLC. Consequently oncology consult was called mainly for not responding severe anemia despite multiple transfusion. CT abdomen/pelvis with contrast on 06/18 showed evidence of 4.5 x 4 x 5 cm mass mass in the distal ileum with multiple colonic diverticula consistent with diverticulosis. Discussed with the GI. MR enterography ordered. 4. Acute CVA/acute right MCA ischemic stroke ? MRI demonstrated Multiple small acute right cerebral and basal ganglia infarcts, likely embolic in etiology. CT of the head and neck does not show evidence for large vessel occlusion in the [place] region but severe stenosis and near occlusion of the proximal right internal carotid artery in the neck with string of flow. Otherwise mild diffuse narrowing of the caliber of the right ICA mid to distal neck and intracranial portion without significant stenosis or occlusion. [facility] teleneuro patient started on antiplatelet therapy as well as statin therapy ordered 2D echo and consultation placed to vascular surgery regarding patient severe carotid artery stenosis 06/21: Discussed with the vascular surgeon Dr. Raman and recommended right CEA after other ongoing medical issues are stabilized including biopsy of the lung mass and GI bleed 06/22: Discussed with the [facility] neurologist. LDL 49. Continue aspirin. 5. Anemia - Secondary to chronic disorder/underlying malignancy monitoring H&H and transfuse if patient becomes symptomatic or hemoglobin falls below 7. With the patient hemoglobin being low at 6.1 did undertake iron studies, B12 as well as ferritin levels and order was given for patient to be transfused 1 unit PRBC ? 06/20/2023; patient was seen by Dr. Clement with GI recommendations for patient to undergo both upper and lower endoscopic evaluation ?06/21/2023; EGD by Dr. Clement on 06/28/2023 for results as below 06/21: Hemoglobin dropped to 6.2. from 7.4. 1 unit of PRBC transfusion ordered. Impressions : - No gross lesions in the entire esophagus. - Non-bleeding gastric ulcer with no stigmata of bleeding. Biopsied. - Non-bleeding duodenal ulcer with no stigmata of bleeding. Recommendations : - [facility] to [facility] for [facility] care. - Clear liquid diet. - Continue present medications. - Await pathology results. ?Patient is scheduled to undergo colonoscopy on 06/22/2023. 06/22: Severe anemia. Patient had PRBC transfusion. Posttransfusion CBC, H&H 8.1/24%. Platelet count 567,000. Critical high WBC count. On leukocytosis 06/23: Hemoglobin dropped to 7.3. Leukocytosis 36,000 mainly neutrophil 89% lymphocyte 3.6%.Recommended evidence of 4.5 x 4 cm immature granulocytes 2.2%. Neutrophilia, monocytosis and leukocytosis. Colonoscopy shows 1 cm polyp in rectum. Anal fissure diverticulosis. Patient might of bleeding from diverticulosis but still does not account for the severity of loss of blood. MR enterography ordered. impressions : - One 20 mm polyp in the rectum, removed with a hot snare. Resected and retrieved. - Anal fissure. Treated with a heater probe. - Diverticulosis in the recto-sigmoid colon, in the sigmoid colon and in the descending colon. - The examined portion of the ileum was normal. Recommendations : - [facility] to [facility] care. - Resume regular diet. - Continue present medications. - Await pathology results. - Repeat colonoscopy in 1 year for surveillance. 6. Hypertension - Blood pressure controlled, home medications continued with dose adjustment as needed 7. COPD with acute exacerbation - Patient started on bronchodilator treatment, systemic steroid as well as antibiotic therapy. Patient placed on oxygen titrated to keep saturation greater than 90. 8. Tobacco dependence - Counseled on cessation, offered nicotine patch for tobacco cravings 9. CT evidence of old lacunar infarct ? Patient was started on antiplatelet therapy with aspirin held given her significant anemia 10. Hypokalemia -Corrected per protocol, repeat labs ordered for a.m. 11. DVT prophylaxis ? Patient has been started on enoxaparin discontinued given her significant an emia. Initiated SCDs. Plan is to resume Lovenox once colonoscopy does not reveal any evidence of GI bleed Time spent in the patient's overall evaluation,decision-making process, review of diagnostic data, adjustment of management, discussion with other providers, nursing nursing and ancillary staff involved in patient's care documentation 45 minutes Total time of the visit including total time spent in counseling or coordination of care, (more than 50% of the total time, spent in obtaining medical information from nurses and other ancillary care providers,explaining to the patient about labs, imaging, diagnosis and management of active complex medical conditions), multiple consultants including ID, neuro and GI, clinical update, prognosis discussion with the patient's who is power of bacteriologist food for health, interdisciplinary rounds, review of labs and imaging is 45 minutes. Charges/Coding Visit Charges Inpatient E&M: 40138 Subs Hosp L3
[2023-06-24 07:59] LABS: Vancomycin, Trough Level 27.7 ug/mL (5.0-15.0)
[2023-06-24 08:13] LABS: ALB/GLOB Ratio 0.4 RATIO (0.9-2.4); AST(SGOT) 28 U/L (15-37); Alanine Aminotransfer ALT/SGPT 17 U/L (13-56); Albumin, Serum 1.4 g/dL (3.2-5.0); Alkaline Phosphatase 200 U/L (45-117); Anion Gap 4 (5-15); BUN 11 mg/dL (7-18); BUN/Creat Ratio 5.2 RATIO (10-20); Calcium,Total 8.5 mg/dL (8.5-10.1); Chloride 111 mmol/L (98-107); EST Glomerular Filtration Rate 26 mL/min (>60); Est Glom Filt Rate - Afr Amer 31 mL/min (>60); Estimated Creatinine Clearance 24.91 ml/min; Globulin 3.9 g/dL (2.2-4.2); Glucose 91 mg/dL (74-106); Potassium 4.3 mmol/L (3.5-5.1); Protein, Total 5.3 g/dL (6.4-8.2); Sodium Level 136 mmol/L (136-145)
--- NOTE | 2023-06-24 08:49 | PCM.RX.CS ---
Consult Antibiotic Management Pharmacy has been consulted to manage selected antibiotic: Vancomycin Type of Intervention Type of Consult: Follow-up Labs Labs: Sodium 136 mmol/L (136-145) 06/24/23 06:50 Potassium 4.3 mmol/L (3.5-5.1) 06/24/23 06:50 Chloride 111 mmol/L (98-107) H 06/24/23 06:50 Carbon Dioxide 21.0 mmol/L (21.0-32.0) 06/24/23 06:50 Anion Gap 4 (5-15) L 06/24/23 06:50 BUN 11 mg/dL (7-18) 06/24/23 06:50 Creatinine 2.10 mg/dL (0.55-1.02) H 06/24/23 06:50 Est GFR (MDRD) Af Amer 31 mL/min (>60) L 06/24/23 06:50 Est GFR (MDRD) Non-Af 26 mL/min (>60) L 06/24/23 06:50 BUN/Creatinine Ratio 5.2 RATIO (10-20) L 06/24/23 06:50 Glucose 91 mg/dL (74-106) 06/24/23 06:50 Vancomycin Trough 27.7 ug/mL (5.0-15.0) H 06/24/23 06:50 Random Vancomycin 11.7 ug/mL (0.0-15.0) 06/22/23 05:58 Microbiology Microbiology: Microbiology 06/18/23 12:35 Blood Culture (Wb) - Right Wrist Blood Culture - Final No growth in 5 days. 06/18/23 12:20 Blood Culture (Wb) - Arm Left Blood Culture - Final No growth in 5 days. 06/18/23 13:50 Urine, Catheterized Urine Culture - Final Culture exhibits no growth. 06/19/23 11:00 Stool Stool Occult Blood (DOMINGO) - Final Occult Blood Positive 06/18/23 17:54 Mucosa - Nasopharyngeal Respiratory Panel (PCR) - Final 06/18/23 13:50 Urine, Clean Catch Legionella Antigen - Final 06/18/23 13:50 Urine, Clean Catch Streptococcus pneumoniae Antigen (M - Final 06/18/23 13:32 Mucosa - Nose SARS-CoV-2, Influenza & RSV (PCR) - Final Pharmacy Plan for Drug Dosing Pharmacy Plan for Drug Dosing: VANCOMYCIN LEVEL RECEIVED Current Vancomycin Dose: 1500MG Q24 Number of Doses Received: 8 Vancomycin Level: 27.7 MG/DL Hours Since Last Dose: 21 Renal Function: SCR 2.1 mg/dL, CrCl 24 mL/min Renal Function Trend: worsened, SCr 0.65 mg/dL 06/22 Vancomycin Plan/Comments: 21 hour trough is supratherapeutic at 27.7 mg/dL. WIll hold further dosing at this time and get a random level tomorrow morning. Pending Level: 06/25/23 @ 0600 - random Pharmacy Service will continue to monitor and adjust dosing as required.
[2023-06-24] MEDS: Pantoprazole Sodium 40 MG Tablet PO (09:49)
[2023-06-24] MEDS: Lactated Ringers 1,000 ML 15 ML IV (10:44)
--- NOTE | 2023-06-24 10:44 | CON.PCM.ON_ITS ---
Assessment & Plan Assessment/Plan (1) Anemia: Status: Acute Code(s): D64.9 - Anemia, unspecified Qualifiers: Iron deficiency anemia type: chronic blood loss Anemia type: iron deficiency Qualified Code(s): D50.0 - Iron deficiency anemia secondary to blood loss (chronic) Plan: Pt is most likely actively bleeding from small bowel mass thought it may be multiple etiological factors including Gastric and Duodenal ulcers, Lower GI bleed. Pt has Function Iron deficiency with very high Ferritin level because of chronic liver disease from Alcoholic liver disease. Suggest CT enterography and CTA, transfuse PRBCs as needed. To proceed with Colonoscopy. (2) Small bowel mass: Status: Acute Code(s): K63.89 - Other specified diseases of intestine Plan: Suggest Surgical consult as it may explain GI bleed. (3) Primary lung adenocarcinoma: Status: Acute Code(s): C34.90 - Malignant neoplasm of unspecified part of unspecified bronchus or lung Qualifiers: Laterality: right Qualified Code(s): C34.91 - Malignant neoplasm of unspecified part of right bronchus or lung Plan: Tumor size 3.7cm, she may need a PET/CT to complete staging work up. Suggest follow up with [facility] for further work up if she is discharged. Will not follow further on this admission. HPI Consult Data Date of Service:: 06/24/23 PCP / Referring Provider: Gill Primary Care Phys Attending: Dr. Boone Vinson MD Chief Complaint Chief Complaint: Asked to see Pt for anemia. History of Present Illness History of Present Illness: 57-year-old woman with history of lung mass was admitted with hypotension and anemia with FOBT positive on 06/19/2023. CT scan on 06/20/2023 showed 3.7 cm right upper lobe mass and 5 cm heterogeneous mass in the left ileum. She was given blood transfusion on admission but hemoglobin keeps dropping, today it is 7.3. EGD on 06/20/2023 showed no gross lesion in the esophagus, nonbleeding gastric ulcer and nonbleeding duodenal ulcer. CT guided biopsy of right upper lobe mass on 06/22/2023 shows adenocarcinoma. 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 Jensen Martinez MD) Chronic anemia COPD (chronic obstructive pulmonary disease) Former tobacco use History of alcohol abuse Iron deficiency Lung mass Small bowel mass Home Medications cefdinir 300 mg capsule 300 mg PO Q12H 06/18/23 [History Last Taken 06/17/23] ferrous fumarate 324 mg (106 mg iron) tablet (Ferrocite) 324 mg PO DAILY 06/18/23 [History Last Taken 06/17/23] folic acid 1 mg tablet 1 mg PO DAILY 06/18/23 [History Last Taken 06/17/23] magnesium oxide 400 mg (241.3 mg magnesium) tablet 400 mg PO TID 06/18/23 [History Last Taken 06/17/23] thiamine HCl (vitamin B1) 100 mg tablet 100 mg PO DAILY 06/18/23 [History Last Taken 06/17/23] Allergy/AdvReac Type Severity Reaction Status Date / Time No Known Allergies Allergy Verified 06/18/23 11:51 Family History Mother Heart disease Hypertension Myocardial infarction CAD (coronary artery disease) Father Brain cancer Surgical History History of dental surgery Social History household members: spouse Smoking Status: Current every day smoker tobacco type: cigarettes how long ago did patient quit smoking: Quit 2 wks prior to admission, smoked 1 ppd intermittently since teen. alcohol intake: former details: Sober x 2 weeks, 1/4-1/3 of 1L vodka daily. substance use type: does not use Physical Exam Const alert Constitutional Narrative: Lying in bed. HEENT normocephalic Eyes no scleral icterus Neck no lymphadenopathy and supple Lymph Lymphatic: no lymphadenopathy noted Resp normal respiratory effort and clear to auscultation bilaterally Cardio regular rate, regular rhythm, S1 normal heart sound and S2 normal heart sound GI soft to palpation and no masses Extremity no clubbing, cyanosis or edema Skin no rashes or lesions noted Neuro CN's II-XII intact bilaterally, moves all extremities and no focal motor deficits Psych Psych Narrative: Slow speech, Mood & Affect: blunted affect Vital Signs Temperature 98.2 F 06/24/23 09:40 Temperature Source Oral 06/24/23 09:40 Pulse Rate 114 H 06/24/23 09:40 Pulse Strength Normal (2+) 06/23/23 08:00 Respiratory Rate 22 H 06/24/23 09:40 Respiratory Effort Normal, Non-Labored 06/24/23 10:00 Respiratory Depth Normal 06/24/23 10:00 Respiratory Pattern Normal 06/24/23 10:00 Blood Pressure 119/53 L 06/24/23 09:40 Blood Pressure Mean 75 06/24/23 09:40 Blood Pressure Source Monitor 06/24/23 09:40 Blood Pressure Position Semi-Fowlers 06/24/23 09:40 Blood Pressure Location Right Arm 06/24/23 09:40 Baseline BP 109/54 06/22/23 10:18 Pulse Ox 97 06/24/23 09:40 Oxygen Delivery Method Nasal Cannula 06/24/23 10:00 Oxygen Flow Rate (L/min) 2 06/24/23 10:00 Laboratory Results - last 24 hr 06/21/23 04:40: Diff Path Review Reviewed 06/22/23 05:58: Carcinoembryonic Ag 2.6 06/23/23 08:05: WBC 36.0 H*, RBC 2.64 L, Hgb 8.1 L, Hct 24.8 L, MCV 93.9, MCH 30.7, MCHC 32.7, RDW Std Deviation 51.4 H, RDW Coeff of Bryanna 15.1 H, Plt Count 567 H, MPV 9.6, Immature Gran % (Auto) 1.100 H, Neut % (Auto) 89.1 H, Lymph % (Auto) 4.9 L, [place] % (Auto) 4.3, Eos % (Auto) 0.2, Baso % (Auto) 0.4, Absolute Neuts (auto) 32.1 H, Absolute Lymphs (auto) 1.78, Nucleated RBC % 0, Differential Comment COMMENT, Diff Path Review June06/24/23 06:50: WBC 36.7 H*, RBC 2.33 L, Hgb 7.3 L, Hct 21.9 L, MCV 94.0, MCH 31.3, MCHC 33.3, RDW Std Deviation 51.8 H, RDW Coeff of [place] 15.1 H, Plt Count 508 H, MPV 9.1, Immature Gran % (Auto) 2.200 H, Neut % (Auto) 89.0 H, Lymph % (Auto) 3.6 L, [place] % (Auto) 4.4, Eos % (Auto) 0.3, Baso % (Auto) 0.5, Absolute Neuts (auto) 32.6 H, Absolute Lymphs (auto) 1.31, Nucleated RBC % 0, Differential Comment COMMENT, Diff Path Review June foll, Sodium 136, Potassium 4.3, Chloride 111 H, Carbon Dioxide 21.0, Anion Gap 4 L, BUN 11, Creatinine 2.10 H, Estim Creat Clear Calc 24.91, Est GFR (MDRD) Af Amer 31 L, Est GFR (MDRD) Non-Af 26 L, BUN/Creatinine Ratio 5.2 L, Glucose 91, Calcium 8.5, Total Bilirubin 0.60, AST 28, ALT 17, Alkaline Phosphatase 200 H, Total Protein 5.3 L, Albumin 1.4 L, Globulin 3.9, Albumin/Globulin Ratio 0.4 L, Vancomycin Trough 27.7 H Microbiology 06/18/23 12:35 Blood Culture (Wb) - Right Wrist Blood Culture - Final No growth in 5 days. 06/18/23 12:20 Blood Culture (Wb) - Arm Left Blood Culture - Final No growth in 5 days. Diagnostic Data Brain CT 06/18/23 12:03 IMPRESSION: 1. No acute intracranial process. 2. Chronic lacunar infarcts in basal ganglia. Electronically Signed: Lokesh Smith MD at 13:06 EDT , Chest/Abdomen/Pelvis CT 06/19/23 08:17 IMPRESSION: 3.7 cm x 3.3 cm mass in the lateral aspect of the right upper lobe. 5.6 mm faint nodule seen in the posterior aspect of the right upper lobe on axial image #23. There is a 4.5 cm x 4 cm x 5 cm heterogeneous mass in the distal ileum. Bladder wall thickening although bladder is not completely distended at this time. Electronically Signed: Tomas Palmer MD at 12:32 EDT , Brain MRI 06/20/23 07:16 IMPRESSION: Multiple small acute right cerebral and basal ganglia infarcts, likely embolic in etiology. Mild chronic involutional and white matter changes. Motion artifact. No evidence for enhancing intracranial mass. Electronically Signed: Maritza Lyn MD at 13:13 EDT , ADDENDUM: 06/20/23 1333 IMPRESSION: Multiple small acute right cerebral and basal ganglia infarcts, likely embolic in etiology. Mild chronic involutional and white matter changes. Motion artifact. No evidence for enhancing intracranial mass. N.B. : Rebecca Kilgore RN, confirmed on 06/20/2023 13:26:53 (ET) that the healthcare facility has received the radiology report. Electronically Signed: Maritza Lyn MD at 13:13 EDT , Echocardiogram 06/20/23 13:37 Interpretation Summary The estimated ejection fraction is 65 %. No evidence for diastolic dysfunction. Trivial mitral valve insufficiency. Ordering Physician: Parag Robbins Performed By: Andrea Camp RCS Head/Neck CTA 06/20/23 14:22 IMPRESSION: No evidence for acute intracranial hemorrhage. No evidence for large vessel occlusion in the [place] region. Severe stenosis and near occlusion of the proximal right internal carotid artery in the neck with string of flow. Otherwise mild diffuse narrowing of the caliber of the right internal carotid artery in the mid to distal neck and intracranial portion without significant stenosis or occlusion. Right lung mass. Electronically Signed: Maritza Lyn MD at 16:01 EDT , Chest X-Ray 06/22/23 22:40 IMPRESSION: Stable masslike right upper lobe opacity. Persistent left pleural effusion and increasing infiltrate. Increasing right pleural effusion and infiltrate. Electronically Signed: Virgilio Lezama DO at 23:53 EDT , Charges/Coding Visit Charges Office Visits / Consults: 85013 IP Consult L4
--- NOTE | 2023-06-24 11:56 | OP.CCLET_ITS ---
06/24/2023 No Primary Care Physician Re : Colonoscopy procedure for Tanja Claire Dear Care Physician This procedure was performed on Saturday, June 24, 2023. My impressions and recommendations are as follows: Impressions : - One 20 mm polyp in the rectum, removed with a hot snare. Resected and retrieved. - Anal fissure. Treated with a heater probe. - Diverticulosis in the recto-sigmoid colon, in the sigmoid colon and in the descending colon. - The examined portion of the ileum was normal. Recommendations : - Return patient to [facility] for ongoing care. - Resume regular diet. - Continue present medications. - Await pathology results. - Repeat colonoscopy in 1 year for surveillance. My findings are described in the full procedure note, which is enclosed. If I can be of further assistance, please feel free to contact me at . Sincerely, Jose Clement, 06/24/2023 11:56:13 AM This report has been signed electronically.
--- NOTE | 2023-06-24 11:56 | OP.COLON_ITS ---
Patient Name: Tanja Claire Procedure Date: 06/24/2023 11:07 AM Date of : 1965 Age: 57 Procedure: Colonoscopy Indications: Hematochezia Providers: Jose Clement DO Medicines: Monitored Anesthesia Care Patient Profile: This is a 57 year old female. Refer to note in patient chart for documentation of history and physical. Last Colonoscopy: none. The patient's first colonoscopy is today. Complications: No immediate complications. Procedure: Pre-Anesthesia Assessment: - Prior to the procedure, a History and Physical was performed, and patient medications and allergies were reviewed. The patient is competent. The risks and benefits of the procedure and the sedation options and risks were discussed with the patient. All questions were answered and informed consent was obtained. Patient identification and proposed procedure were verified in the pre-procedure area. Mental Status Examination: alert and oriented. Airway Examination: normal oropharyngeal airway and neck mobility. Respiratory Examination: clear to auscultation. CV Examination: normal. Prophylactic Antibiotics: The patient does not require prophylactic antibiotics. Prior Anticoagulants: The patient has taken no anticoagulant or antiplatelet agents. ASA Grade Assessment: II - A patient with mild systemic disease. After reviewing the risks and benefits, the patient was deemed in satisfactory condition to undergo the procedure. The anesthesia plan was to use monitored anesthesia care (MAC). Immediately prior to administration of medications, the patient was re-assessed for adequacy to receive sedatives. The heart rate, respiratory rate, oxygen saturations, blood pressure, adequacy of pulmonary ventilation, and response to care were monitored throughout the procedure. The physical status of the patient was re-assessed after the procedure. After I obtained informed consent, the scope was passed under direct vision. Throughout the procedure, the patient's blood pressure, pulse, and oxygen saturations were monitored continuously. The Colonoscope was introduced through the anus and advanced to the terminal ileum. The colonoscopy was performed without difficulty. The patient tolerated the procedure well. The quality of the bowel preparation was adequate. The terminal ileum, ileocecal valve, appendiceal orifice, and rectum were photographed. Scope In: 11:18:52 AM Scope Withdrawal Time 0 hours 18 minutes 18 seconds Scope Out: 11:40:18 AM Total Procedure Duration Time 0 hours 21 minutes 26 seconds Findings: The perianal and digital rectal examinations were normal. A 20 mm polyp was found in the rectum. The polyp was semi-pedunculated. The polyp was removed with a hot snare. Resection and retrieval were complete. Verification of patient identification for the specimen was done. Estimated blood loss was minimal. A 15 mm anal fissure was found in the anal canal. Coagulation for hemostasis using heater probe was successful. Estimated blood loss was minimal. Multiple small and large-mouthed diverticula were found in the recto-sigmoid colon, sigmoid colon and descending colon. The terminal ileum appeared normal. Impression: - One 20 mm polyp in the rectum, removed with a hot snare. Resected and retrieved. - Anal fissure. Treated with a heater probe. - Diverticulosis in the recto-sigmoid colon, in the sigmoid colon and in the descending colon. - The examined portion of the ileum was normal. Recommendation: - Return patient to [facility] for ongoing care. - Resume regular diet. - Continue present medications. - Await pathology results. - Repeat colonoscopy in 1 year for surveillance. Procedure Code(s): --- Professional --- 50277, 57, Colonoscopy, flexible; with control of bleeding, any method 30782, Colonoscopy, flexible; with removal of tumor(s), polyp(s), or other lesion(s) by snare technique CPT copyright 2021 [employer]. All rights reserved. The codes documented in this report are preliminary and upon regional coordinator review may be revised to meet current compliance requirements. Jose Clement DO 06/24/2023 11:56:13 AM This report has been signed electronically. Number of Addenda: 0 Note Initiated On: 06/24/2023 11:07 AM
[2023-06-24 13:07] LABS: Carbohydrate Ag 19-9 2261 10 U/mL (0-35)
[2023-06-24] MEDS: Aspirin 81 MG TAB.CHEW PO (13:49)
[2023-06-24] MEDS: Iron Polysaccharide Complex 150 MG CAPSULE PO (13:49)
[2023-06-24] MEDS: Thiamine Hydrochloride 100 MG Tablet PO (13:49)
[2023-06-24] MEDS: Multivitamins,Ther W-Minerals Tablet 1 TABLET PO (13:49)
[2023-06-24] MEDS: Magnesium Chloride 64 MG Delay Rel.Tablet 128 MG PO ×2 (13:49→21:01)
[2023-06-24] MEDS: Folic Acid 1 MG Tablet PO (13:49)
[2023-06-24] MEDS: Potassium Chloride Oral Tablet 20 MEQ PO ×2 (13:50→18:20)
--- NOTE | 2023-06-24 13:57 | PCM.PN.ID ---
Physical Exam Narrative Feeling better, no subjective fever overnight. No abd, mild dyspnea Const alert and no apparent distress General Appearance: cooperative Resp Auscultation: diminished lung sounds Cardio regular rate and regular rhythm GI soft to palpation, non-tender and non-distended Skin no rashes or lesions noted ID ID: Route of nutrition/ use of supplements: [] Nutritional Intake: [] IV Site: [] Pastor Catheter: [] Assessment & Plan Assessment/Plan (1) Carotid stenosis, symptomatic, with infarction: (2) Encephalopathy: (3) COPD (chronic obstructive pulmonary disease): (4) History of alcohol abuse: (5) Lung mass: (6) Fever: PLAN: Fever possibly related to new dx malignancy. Cxs neg so far. Resp pcr panel neg. Recently on cefdinir for pneumonia. Wbc improved from admit. Procal was high on admit at 0.6. UAgs neg. Lung bx done 06/21, colonoscopy done. New MANDEEP, will stop vanc. Cont zosyn for now. Will follow
[2023-06-24] MEDS: 0.9% Normal Saline (1000mL) 1,000 ML 75 ML IV (14:55)
--- NOTE | 2023-06-24 16:08 | US_ITS ---
STUDY: RENAL ULTRASOUND - COMPLETE REASON FOR EXAM: Female, 57 years old. MANDEEP TECHNIQUE: Ultrasound evaluation of the kidneys was performed with real-time and static ford-scale imaging. COMPARISON: None. FINDINGS: RIGHT KIDNEY: Normal location of the right kidney, which is normal in size. The right kidney measures 12.1 x 4.4 x 5.5 cm. There is a normal cortex of the right kidney. The renal cortex measures 1.5 cm. There is no right renal mass or cyst. There are no right renal calculi. There is no right hydronephrosis. DISTAL RIGHT URETER: There is non-visualization of the distal right ureter. There is no demonstrated right ureterovesical junction calculus. There is no demonstrated right ureteral jet. LEFT KIDNEY: Normal location of the left kidney, which is normal in size. The left kidney measures 11.6 x 4.5 x 6.0 cm. There is a normal cortex of the left kidney. The renal cortex measures 1.6 cm. There is no left renal mass or cyst. There are no left renal calculi. There is no left hydronephrosis. DISTAL LEFT URETER: There is non-visualization of the distal left ureter. There is no demonstrated left ureterovesical junction calculus. There is no demonstrated left ureteral jet. BLADDER: The urinary bladder is not distended. It is suboptimally evaluated in grossly negative. There is a normal wall thickness of the distended urinary bladder. There is no demonstrated mass within the urinary bladder. There are no demonstrated bladder calculi. US/Kidney and Bladder IMPRESSION: Normal ultrasound of the kidneys and urinary bladder. Electronically Signed: Pavan Garza MD at 22:50 EDT ,
--- NOTE | 2023-06-24 18:21 | EX.PCM.PN.GI ---
Subjective Subjective Patient underwent colonoscopy yesterday. Objective Data Objective Data Vital Signs: Vital Signs Temp Pulse Resp BP Pulse Ox O2 Del Method O2 Flow Rate 97.8 F 104 H 20 H 109/64 94 Room Air 2 06/24/23 13:32 06/24/23 15:02 06/24/23 15:02 06/24/23 13:32 06/24/23 14:01 06/24/23 14:11 06/24/23 12:15 Oxygen Flow Rate (L/min) 2 Oxygen Delivery Method Room Air Weight: 129 lb 13.636 oz Body Mass Index (BMI) 22.3 Intake & Output: Intake and Output for Last 24 Hours 06/22/23 06/23/23 06/24/23 23:59 23:59 23:59 Intake Total 2274.00 / 2474.00 4165.00 / 4165.00 1050 / 1050 Output Total 1050 / 1050 Balance 1224.00 / 1424.00 4165.00 / 4165.00 1050 / 1050 Medical Nutrition Assessment Dietitian: Malnutrition Criteria Met Start: 06/19/23 16:32 Freq: Status: Active Protocol: Document 06/24/23 13:39 AG (Rec: 06/24/23 13:39 AG [id number]) Nutrition Malnutrition Evidence of Malnutrition Exists Yes Malnutrition (severe): Acute Illness/Injury Evidenced By Suboptimal Energy Intake ( Severe),Weight Loss (Severe) Clinical Problem Acute Disease or Injury Related Malnutrition Etiology severe, acute malnutrition related to inadequate energy intake Signs/Symptoms as evidenced by estimated PO intake meeting <50% of estimated energy needs > 5 days, unintentional 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 Problem Recommendation Dietitian Recommendations/Changes recommend regular diet when medically appropriate given signs and symptoms of malnutrition; continue 240mL ensure clear TID w/ meals for additional nutrition if consumed when diet is resumed Lab / Micro Data 06/24/23 06:50 06/24/23 06:50 Labs: Laboratory Results - last 24 hr 06/22/23 05:58: Carcinoembryonic Ag 2.6, CA 19-9 Antigen 10 06/24/23 06:50: WBC 36.7 H*, RBC 2.33 L, Hgb 7.3 L, Hct 21.9 L, MCV 94.0, MCH 31.3, MCHC 33.3, RDW Std Deviation 51.8 H, RDW Coeff of Bryanna 15.1 H, Plt Count 508 H, MPV 9.1, Immature Gran % (Auto) 2.200 H, Neut % (Auto) 89.0 H, Lymph % (Auto) 3.6 L, Union % (Auto) 4.4, Eos % (Auto) 0.3, Baso % (Auto) 0.5, Absolute Neuts (auto) 32.6 H, Absolute Lymphs (auto) 1.31, Nucleated RBC % 0, Differential Comment COMMENT, Diff Path Review June foll, Sodium 136, Potassium 4.3, Chloride 111 H, Carbon Dioxide 21.0, Anion Gap 4 L, BUN 11, Creatinine 2.10 H, Estim Creat Clear Calc 24.91, Est GFR (MDRD) Af Amer 31 L, Est GFR (MDRD) Non-Af 26 L, BUN/Creatinine Ratio 5.2 L, Glucose 91, Calcium 8.5, Total Bilirubin 0.60, AST 28, ALT 17, Alkaline Phosphatase 200 H, Total Protein 5.3 L, Albumin 1.4 L, Globulin 3.9, Albumin/Globulin Ratio 0.4 L, Vancomycin Trough 27.7 H Micro: Microbiology 06/18/23 12:35 Blood Culture (Wb) - Right Wrist Blood Culture - Final No growth in 5 days. 06/18/23 12:20 Blood Culture (Wb) - Arm Left Blood Culture - Final No growth in 5 days. 06/18/23 13:50 Urine, Catheterized Urine Culture - Final Culture exhibits no growth. 06/19/23 11:00 Stool Stool Occult Blood (DOMINGO) - Final Occult Blood Positive 06/18/23 17:54 Mucosa - Nasopharyngeal Respiratory Panel (PCR) - Final 06/18/23 13:50 Urine, Clean Catch Legionella Antigen - Final 06/18/23 13:50 Urine, Clean Catch Streptococcus pneumoniae Antigen (M - Final 06/18/23 13:32 Mucosa - Nose SARS-CoV-2, Influenza & RSV (PCR) - Final
[2023-06-24] MEDS: 0.9% Saline Lock 10 ML Syringe IV (21:00)
[2023-06-24] MEDS: Atorvastatin Calcium 80 MG Tablet PO (21:01)
[2023-06-25] VITALS (10 sets, daily range): BP systolic 114–142; BP diastolic 56–84; PULSE 89–124; RESP 16–20; TEMP 36.4–36.9; O2SAT 93–97; BMI 21.7
[2023-06-25] MEDS: 0.9% Normal Saline (1000mL) 1,000 ML 75 ML IV ×2 (03:10→11:27)
[2023-06-25] MEDS: Magnesium Chloride 64 MG Delay Rel.Tablet 128 MG PO (05:27)
[2023-06-25] MEDS: Piperacil/Tazobactam 3.375 GM in 0.9% Normal Saline (50mL MB+) 50 ML IV ×2 (05:27→17:41)
[2023-06-25 06:01] LABS: Bacteria 0 SEEN /hpf (None Seen); Mucous, Urine 0 SEEN /hpf (<or=2+); White Blood Cells 0 SEEN /hpf (0-5)
[2023-06-25 06:31] LABS: Color, Urine Yellow (Yellow); Glucose, Dipstick Normal (Normal); Ketone-Dipstick Negative (Negative); Leukocyte Esterase-Dipstick Negative /ul (Negative); Nitrite-Dipstick Negative (Negative); Occult Blood-Urine 10 /ul (Negative); Protein-Dipstick 30 mg/dl (Negative); Urine Bilirubin Dipstick Negative (Negative); Urine Clarity Clear (Clear); Urine Urobilinogen Normal (Normal)
[2023-06-25 06:51] LABS: Protein, Urine (Random) 91.6 mg/dL (<11.9); Protein:Creat Ratio 1836 mg/g CRE (0-200); Urine Chloride 95 mmol/L (Not Establ.); Urine Sodium 77 mmol/L (Not Establ.)
[2023-06-25 06:52] LABS: Red Blood Cells-Urine 5-10 SEEN /hpf (0-5); Squamous Epithelial Cells - UA 25-50 SEEN /hpf (5-10)
[2023-06-25 06:57] LABS: Fine Granular Cast- Urine 0-5 SEEN /lpf (0-5); Hyaline Cast 5-10 SEEN /lpf (0-5); Yeast-Urine 2+ /hpf (None Seen)
[2023-06-25] MEDS: Ipratropium/Albuterol Sulfate 3 ML AMPUL.NEB INHALATION ×3 (07:12→15:17)
[2023-06-25 07:20] LABS: Osmolality, Urine 284 mOsm/KG
[2023-06-25 07:22] LABS: Absolute Lymphocyte Count 1.36 X10^3/uL (0.83-4.51); Absolute Neutrophil Count 38.7 X10^3/uL (2.0-7.7); Basophil# 0.14 X10^3/uL; Basophil% 0.3 % (0-1); Eosinophils% 0.2 % (0-5); Hematocrit 21.4 % (37-47); Hemoglobin 6.9 g/dL (12.0-15.0); Lymphocyte # 1.36 X10^3/ul (0.83-4.51); Lymphocyte % 3.2 % (19-41); Mean Corp Hgb Conc 32.2 g/dL (32-36); Mean Corpuscular Hgb 30.9 pg (27.0-32.0); Mean Platelet Vol. 9.2 fl (6.2-12.0); Monocyte# 1.56 X10^3/uL; Monocyte% 3.7 % (0-10); NRBC Flagged by Analyzer 0 % (0-5); Neutrophil # 38.73 X10^3/uL (2.7-7.7); Neutrophil % 91.1 % (47-70); POSITIVE COUNT YES; POSITIVE DIFFERENTIAL YES; Platelet Count 531 K/mm3 (150-450); RBC Distribution Width CV 15.4 % (11.6-14.6); RBC Distribution Width SD 54.3 fl (35.1-43.9); Red Blood Count 2.23 M/mm3 (4.2-5.4)
[2023-06-25 07:34] LABS: ALB/GLOB Ratio 0.3 RATIO (0.9-2.4); AST(SGOT) 25 U/L (15-37); Alanine Aminotransfer ALT/SGPT 19 U/L (13-56); Albumin, Serum 1.3 g/dL (3.2-5.0); Alkaline Phosphatase 115 U/L (45-117); Anion Gap 10 (5-15); BUN 23 mg/dL (7-18); BUN/Creat Ratio 6.7 RATIO (10-20); Calcium,Total 7.8 mg/dL (8.5-10.1); Chloride 111 mmol/L (98-107); Creatinine, Serum 3.43 mg/dL (0.55-1.02); EST Glomerular Filtration Rate 15 mL/min (>60); Est Glom Filt Rate - Afr Amer 18 mL/min (>60); Estimated Creatinine Clearance 15.25 ml/min; Globulin 3.8 g/dL (2.2-4.2); Glucose 106 mg/dL (74-106); Potassium 4.4 mmol/L (3.5-5.1); Protein, Total 5.1 g/dL (6.4-8.2); Sodium Level 139 mmol/L (136-145)
[2023-06-25 07:37] LABS: Differential Indicated SCAN CRITERIA MET; White Blood Count 42.5 K/mm3 (4.4-11.0)
--- NOTE | 2023-06-25 07:41 | PCM.PN.HOSP ---
Reason for Visit Reason for Visit: Diagnoses Malignant neoplasm of unspecified part of right bronchus or lung (06/18/23) Iron deficiency anemia secondary to blood loss (chronic) (06/18/23) Anemia, unspecified (06/18/23) Alcohol abuse, in remission (06/18/23) Encephalopathy, unspecified (06/18/23) Cerebral infarction due to unspecified occlusion or stenosis of unspecified carotid artery (06/18/23) Hypotension, unspecified (06/18/23) Chronic obstructive pulmonary disease, unspecified (06/18/23) Other specified diseases of intestine (06/18/23) Gastrointestinal hemorrhage, unspecified (06/18/23) Fever, unspecified (06/18/23) Other nonspecific abnormal finding of lung field (06/18/23) Objective Data Objective Data Vital Signs: Vital Signs Temp Pulse Resp BP Pulse Ox O2 Del Method O2 Flow Rate 98.4 F 107 H 18 114/56 L 93 Room Air 2 06/25/23 03:10 06/25/23 03:10 06/25/23 03:10 06/25/23 03:10 06/25/23 03:10 06/25/23 03:48 06/24/23 12:15 Oxygen Flow Rate (L/min) 2 Oxygen Delivery Method Room Air Weight: 126 lb 8.725 oz Body Mass Index (BMI) 21.7 Intake & Output: Intake and Output for Last 24 Hours 06/23/23 06/24/23 06/25/23 23:59 23:59 23:59 Intake Total 4165.00 / 4165.00 1725 / 1725 1018.75 / 1018.75 Output Total 50 / 50 Balance 4165.00 / 4165.00 1725 / 1725 968.75 / 968.75 Medical Nutrition Assessment Dietitian: Malnutrition Criteria Met Start: 06/19/23 16:32 Freq: Status: Active Protocol: Document 06/24/23 13:39 AG (Rec: 06/24/23 13:39 AG [id number]) Nutrition Malnutrition Evidence of Malnutrition Exists Yes Malnutrition (severe): Acute Illness/Injury Evidenced By Suboptimal Energy Intake ( Severe),Weight Loss (Severe) Clinical Problem Acute Disease or Injury Related Malnutrition Etiology severe, acute malnutrition related to inadequate energy intake Signs/Symptoms as evidenced by estimated PO intake meeting <50% of estimated energy needs > 5 days, 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 Problem Recommendation Dietitian Recommendations/Changes recommend regular diet when medically appropriate given signs and symptoms of malnutrition; continue 240mL ensure clear TID w/ meals for additional nutrition if consumed when diet is resumed Lab / Micro Data 06/25/23 06:00 06/25/23 06:00 Labs: Laboratory Results - last 24 hr 06/22/23 05:58: CA 19-9 Antigen 10, CA 19-9 Serial Monitor Not Reportable 06/24/23 06:50: Differential Comment COMMENT, Diff Path Review June foll, Sodium 136, Potassium 4.3, Chloride 111 H, Carbon Dioxide 21.0, Anion Gap 4 L, BUN 11, Creatinine 2.10 H, Estim Creat Clear Calc 24.91, Est GFR (MDRD) Af Amer 31 L, Est GFR (MDRD) Non-Af 26 L, BUN/Creatinine Ratio 5.2 L, Glucose 91, Calcium 8.5, Total Bilirubin 0.60, AST 28, ALT 17, Alkaline Phosphatase 200 H, Total Protein 5.3 L, Albumin 1.4 L, Globulin 3.9, Albumin/Globulin Ratio 0.4 L, Vancomycin Trough 27.7 H 06/25/23 05:35: Urine Color Yellow, Urine Clarity Clear, Urine pH 6.0, Ur Specific [place] 1.010, Urine Protein 30 H, Urine Glucose (UA) Normal, Urine Ketones Negative, Urine Occult Blood 10 H, Urine Nitrite Negative, Urine Bilirubin Negative, Urine Urobilinogen Normal, Ur Leukocyte Esterase Negative, Urine RBC 5-10 SEEN, Urine WBC 0 SEEN, Ur Squamous Epith Cells 25-50 SEEN, Urine Bacteria 0 SEEN, Hyaline Casts 5-10 SEEN, Fine Granular Casts 0-5 SEEN, Urine Mucus 0 SEEN, Urine Yeast 2+, Urine Osmolality 284, U Random Total Protein 91.6 H, Ur Random Sodium 77, Urine Creatinine 49.90, Protein/Creatinin Ratio 1836 H, Urine Potassium 33.0, Urine Chloride 95 06/25/23 06:00: WBC 42.5 H*, RBC 2.23 L, Hgb 6.9 L, Hct 21.4 L, MCV 96.0, MCH 30.9, MCHC 32.2, RDW Std Deviation 54.3 H, RDW Coeff of [place] 15.4 H, Plt Count 531 H, MPV 9.2, Immature Gran % (Auto) 1.500 H, Neut % (Auto) 91.1 H, Lymph % (Auto) 3.2 L, [place] % (Auto) 3.7, Eos % (Auto) 0.2, Baso % (Auto) 0.3, Absolute Neuts (auto) 38.7 H, Absolute Lymphs (auto) 1.36, Nucleated RBC % 0, Sodium 139, Potassium 4.4, Chloride 111 H, Carbon Dioxide 18.0 L, Anion Gap 10, BUN 23 H, Creatinine 3.43 H, Estim Creat Clear Calc 15.25, Est GFR (MDRD) Af Amer 18 L, Est GFR (MDRD) Non-Af 15 L, BUN/Creatinine Ratio 6.7 L, Glucose 106, Calcium 7.8 L, Total Bilirubin 0.30, AST 25, ALT 19, Alkaline Phosphatase 115, Total Protein 5.1 L, Albumin 1.3 L, Globulin 3.8, Albumin/Globulin Ratio 0.3 L Micro: Microbiology 06/18/23 12:35 Blood Culture (Wb) - Right Wrist Blood Culture - Final No growth in 5 days. 06/18/23 12:20 Blood Culture (Wb) - Arm Left Blood Culture - Final No growth in 5 days. 06/18/23 13:50 Urine, Catheterized Urine Culture - Final Culture exhibits no growth. 06/19/23 11:00 Stool Stool Occult Blood (DOMINGO) - Final Occult Blood Positive 06/18/23 17:54 Mucosa - Nasopharyngeal Respiratory Panel (PCR) - Final 06/18/23 13:50 Urine, Clean Catch Legionella Antigen - Final 06/18/23 13:50 Urine, Clean Catch Streptococcus pneumoniae Antigen (M - Final 06/18/23 13:32 Mucosa - Nose SARS-CoV-2, Influenza & RSV (PCR) - Final Radiography Diagnostic Testing: Radiology Impression Renal Ultrasound 06/24/23 16:08 IMPRESSION: Normal ultrasound of the kidneys and urinary bladder. Electronically Signed: Pavan Garza MD at 22:50 EDT , Physical Exam Narrative Seen and examined Discussed with patient's RN. Patient has multiple active issues and very sick. I talked to the patient's near the bedside who is main caregiver. Patient states that there is no change in her urine output Physical exam General: Awake, oriented x 3. Answers questions and understands and responds it. Oral: Oral mucosa dry. No Gingival or Mucosal Lesions/ Ulcerations Neck: Supple, No JVD, could not hear bruits does not follow commands Chest wall/Lungs: Air entry diminished in bilateral lung bases. No crepitation/rhonchi. On room air. Cardiovascular: Sinus tachycardia normal S1, Normal S2, No M/G/R Abdomen: Bowel Sounds Present, Soft, Non Tender, Non-Distended : Pastor catheter inserted. No dysuria. No renal angle tenderness. No suprapubic tenderness. Extremities: No edema, Capillary Refill Less than 3 Seconds Skin: No rashes, No breakdown Musculoskeletal: No Tenderness to Palpation of Joints or Extremities. Mild degenerative arthritis of knees Neurological: Awake. Language function and dysarthria has improved. No dysphagia. NIH scale improved. Psych/Mental Status: Flat affect. 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 Patient was recently diagnosed with a pulmonary mass and is currently being worked up. Had recently been treated for pneumonia with cefdinir 1. Acute encephalopathy ? Etiology not clear. Patient underwent evaluation with CT of the head which was negative for acute CVA ? 06/20/2023;Patient did experience intermittent episodes of confusion during the evening given her history of alcohol use patient was started on phenobarb taper. Also ordered MRI of the brain with and without contrast given the finding of a lung mass. ? 06/21/2023; phenobarb taper discontinued after discussion with patient . The patient has been patient did not drink any alcohol 2 weeks prior to her admission. 06/22: Patient mental status better than yesterday. Still sometimes unaware and confused and disoriented. 06/23: Acute encephalopathy has resolved. 2. Right upper lobe pneumonia -?? Postobstructive pneumonia patient has significant leukocytosis. Patient started on Zosyn and vancomycin to cover for multidrug-resistant organisms ? 06/20/2023; CT of the abdomen pelvis and chest did show 3.7 cm x 3.3 cm mass in the lateral aspect of the right upper lobe. 5.6 mm faint nodule seen in the posterior aspect of the right upper lobe.There is a 4.5 cm x 4 cm x 5 cm heterogeneous mass in the distal ileum. Bladder wall thickening although bladder is not completely distended at this time.. An order was given for patient to undergo CT-guided biopsy on 06/22/202306/22, patient did spike fever yesterday. ID consult requested. Immature granulocyte 1.1%. Discussed with ID continue same antibiotic. Positive fever may be from tumor/paraneoplastic syndrome. 06/24: Vancomycin was stopped on 06/23. Vanco trough was high 25.2 and 27.7. Last dose was on 06/22. 3. MANDEEP: Creatinine suddenly increased to 2.1. BUN normal.It was normal before 0.5, 0.6. IV fluid normal saline started. Monitor kidney function.No Pastor catheter. 06/24: MANDEEP with relatively normal BUN probably due to ATN. Vancomycin suspected. Creatinine jumped up from 2.1-3.43. BUN 11-23. 1 L IV fluid normal saline bolus and then continue. Medications reconciliation done and nephrotoxic medications were discontinued. IV Zosyn change from every 8 tolerated every 12 hourly. Kidneys and bladder ultrasound shows normal thickness of distended urinary bladder although suboptimally evaluated no demonstrated mass. No bladder calculi. Overall since patient urine output has also decreased. Pastor catheter ordered for strict YURIDIA's. Shredded Filler Machine Wrapper Layer consult reviewed and appreciated. Will hold for MR enterography for now. 4. Lung mass ? CT of the abdomen pelvis and chest ordered for subsequent eval plan is for patient to follow-up with pulmonary medicine when medically stable 06/21: Plan for lung biopsy today. 06/21 lung biopsy was done. Postprocedure x-ray did not show pneumothorax. 06/23: Lung biopsy pathology shows known cell lung cancer, adenocarcinoma, poorly differentiated NSCLC. Consequently oncology consult was called mainly for not responding severe anemia despite multiple transfusion. CT abdomen/pelvis with contrast on 06/18 showed evidence of 4.5 x 4 x 5 cm mass mass in the distal ileum with multiple colonic diverticula consistent with diverticulosis. Discussed with the GI. MR enterography ordered. 5. Acute CVA/acute right MCA ischemic stroke ? MRI demonstrated Multiple small acute right cerebral and basal ganglia infarcts, likely embolic in etiology. CT of the head and neck does not show evidence for large vessel occlusion in the [place] region but severe stenosis and near occlusion of the proximal right internal carotid artery in the neck with string of flow. Otherwise mild diffuse narrowing of the caliber of the right ICA mid to distal neck and intracranial portion without significant stenosis or occlusion. [facility] teleneuro patient started on antiplatelet therapy as well as statin therapy ordered 2D echo and consultation placed to vascular surgery regarding patient severe carotid artery stenosis 06/21: Discussed with the vascular surgeon Dr. Raman and recommended right CEA after other ongoing medical issues are stabilized including biopsy of the lung mass and GI bleed 06/22: Discussed with the [facility] neurologist. LDL 49. Continue aspirin. 5. Anemia - Secondary to chronic disorder/underlying malignancy monitoring H&H and transfuse if patient becomes symptomatic or hemoglobin falls below 7. With the patient hemoglobin being low at 6.1 did undertake iron studies, B12 as well as ferritin levels and order was given for patient to be transfused 1 unit PRBC ? 06/20/2023; patient was seen by Dr. Clement with GI recommendations for patient to undergo both upper and lower endoscopic evaluation ?06/21/2023; EGD by Dr. Clement on 06/28/2023 for results as below 06/21: Hemoglobin dropped to 6.2. from 7.4. 1 unit of PRBC transfusion ordered. Impressions : - No gross lesions in the entire esophagus. - Non-bleeding gastric ulcer with no stigmata of bleeding. Biopsied. - Non-bleeding duodenal ulcer with no stigmata of bleeding. Recommendations : - Return patient to [facility] for [facility] care. - Clear liquid diet. - Continue present medications. - Await pathology results. ?Patient is scheduled to undergo colonoscopy on 06/22/2023. 06/22: Severe anemia. Patient had PRBC transfusion. Posttransfusion CBC, H&H 8.1/24%. Platelet count 567,000. Critical high WBC count. On leukocytosis 06/23: Hemoglobin dropped to 7.3. Leukocytosis 36,000 mainly neutrophil 89% lymphocyte 3.6%.Recommended evidence of 4.5 x 4 cm immature granulocytes 2.2%. Neutrophilia, monocytosis and leukocytosis. Colonoscopy shows 1 cm polyp in rectum. Anal fissure diverticulosis. Patient might of bleeding from diverticulosis but still does not account for the severity of loss of blood. MR enterography ordered. impressions : - One 20 mm polyp in the rectum, removed with a hot snare. Resected and retrieved. - Anal fissure. Treated with a heater probe. - Diverticulosis in the recto-sigmoid colon, in the sigmoid colon and in the descending colon. - The examined portion of the ileum was normal. Recommendations : - Return patient to [facility] for [facility] care. - Resume regular diet. - Continue present medications. - Await pathology results. - Repeat colonoscopy in 1 year for surveillance. 6. Hypertension - Blood pressure controlled, home medications continued with dose adjustment as needed 7. COPD with acute exacerbation - Patient started on bronchodilator treatment, systemic steroid as well as antibiotic therapy. Patient placed on oxygen titrated to keep saturation greater than 90. 8. Tobacco dependence - Counseled on cessation, offered nicotine patch for tobacco cravings 9. CT evidence of old lacunar infarct ? Patient was started on antiplatelet therapy with aspirin held given her significant anemia 10. Hypokalemia -Corrected per protocol, repeat labs ordered for a.m. 11. DVT prophylaxis ? Patient has been started on enoxaparin discontinued given her significant anemia. Initiated SCDs. Plan is to resume Lovenox once colonoscopy does not reveal any evidence of GI bleed Time spent in the patient's overall evaluation,decision-making process, review of diagnostic data, adjustment of management, discussion with other providers, nursing nursing and ancillary staff involved in patient's care documentation 45 minutes Total time of the visit including total time spent in counseling or coordination of care, (more than 50% of the total time, spent in obtaining medical information from nurses and other ancillary care providers,explaining to the patient about labs, imaging, diagnosis and management of active complex medical conditions), multiple consultants including ID, neuro and GI, clinical update, prognosis discussion with the patient's who is power of mergers and acquisitions attorney for health, interdisciplinary rounds, review of labs and imaging is 45 minutes. Charges/Coding Visit Charges Inpatient E&M: 65041 Subs Hosp L3
[2023-06-25] MEDS: 0.9% Normal Saline (1000mL) 1,000 ML 999 ML IV (08:38)
[2023-06-25 09:17] LABS: Pathologist Review Reviewed
[2023-06-25 09:47] LABS: Magnesium 2.1 mg/dL (1.6-2.6); Phosphorus 3.2 mg/dL (2.5-4.9); Uric Acid 4.8 mg/dL (2.6-6.0)
[2023-06-25 09:49] LABS: Differential Comment SCANNED
[2023-06-25] MEDS: Pantoprazole Sodium 40 MG Tablet PO (11:27)
[2023-06-25] MEDS: Multivitamins,Ther W-Minerals Tablet 1 TABLET PO (11:27)
[2023-06-25] MEDS: Thiamine Hydrochloride 100 MG Tablet PO (11:27)
[2023-06-25] MEDS: Iron Polysaccharide Complex 150 MG CAPSULE PO (11:27)
[2023-06-25] MEDS: Aspirin 81 MG TAB.CHEW PO (11:27)
[2023-06-25] MEDS: Folic Acid 1 MG Tablet PO (11:27)
--- NOTE | 2023-06-25 13:02 | PCM.CONS.R ---
Assessment & Plan Assessment/Plan (1) MANDEEP (acute kidney injury): PLAN: Baseline creatinine was normal as of 2 days ago. Rapid rise in creatinine over the last 2 days. Renal ultrasound negative, David catheter indwelling, unlikely obstructive nephropathy. Last CT study was on the . Urine analysis shows 1+ protein, 1+ blood. Urine protein creatinine ratio 1.8 g. She was on vancomycin with couple of elevated levels. Now she is off. Send the urine sodium. Continue IV fluids. Most likely ATN HPI Consult Data Date of Consult: 06/25/23 HPI Narrative Reason for Consultation: Acute renal failure HPI Narrative: CARL PERALTA, is a 57 F who presents To the hospital with altered mental status nephrology on consultation due to acute renal failure. Ongoing events include 1. Altered mental status. CT head negative, MRI brain with MCA stroke, possible embolic origin. Neurology note reviewed. Recommendation was to anticoagulate but she has ongoing GI bleed. 2.. Lung mass, right upper lobe, diagnosed during her recent hospital stay. Biopsy consistent with poorly differentiated non-small cell lung carcinoma, adenocarcinoma. Staging workup not done yet. 3. Colonic mass. As seen on CT abdomen. MR enterography was supposed to be done as per gastroenterology. 4. Leukocytosis. Present on admission. Initially was treated for pneumonia. ID saw her yesterday, presumably reactive at this point. Vancomycin is on hold. With respect to kidney function, creatinine has been normal up until 2 days ago. Rapid rise in creatinine over the last 2 days. David catheter placed without much urine output today. She is somewhat confused and as per my discussion with hospitalist this is how she has been. [facility] Medical History (Updated 06/25/23 @ 13:[address] Geovanni Antoine MD) Chronic anemia COPD (chronic obstructive pulmonary disease) Former tobacco use History of alcohol abuse Iron deficiency Lung mass Small bowel mass Home Medications cefdinir 300 mg capsule 300 mg PO Q12H 06/18/23 [History Last Taken 06/17/23] ferrous fumarate 324 mg (106 mg iron) tablet (Ferrocite) 324 mg PO DAILY 06/18/23 [History Last Taken 06/17/23] folic acid 1 mg tablet 1 mg PO DAILY 06/18/23 [History Last Taken 06/17/23] magnesium oxide 400 mg (241.3 mg magnesium) tablet 400 mg PO TID 06/18/23 [History Last Taken 06/17/23] thiamine HCl (vitamin B1) 100 mg tablet 100 mg PO DAILY 06/18/23 [History Last Taken 06/17/23] Allergy/AdvReac Type Severity Reaction Status Date / Time No Known Allergies Allergy Verified 06/18/23 11:51 Family History Mother Heart disease Hypertension Myocardial infarction CAD (coronary artery disease) Father Brain cancer Surgical History History of dental surgery Social History household members: spouse Smoking Status: Current every day smoker tobacco type: cigarettes how long ago did patient quit smoking: Quit 2 wks prior to admission, smoked 1 ppd intermittently since teen. alcohol intake: former details: Sober x 2 weeks, 1/4-1/3 of 1L vodka daily. substance use type: does not use ROS ROS Narrative Other than pain from David catheter placement, she denies any other complaints. Physical Exam Narrative Alert, awake no obvious distress no pallor no icterus no JVD s1s2 no murmurs lungs clear abdomen soft no organomegaly no edema no cyanosis david + Medical Records Data Medical Nutrition Assessment Dietitian: Malnutrition Criteria Met Start: 06/19/23 16:32 Freq: Status: Active Protocol: Document 06/24/23 13:39 AG (Rec: 06/24/23 13:39 [id number]) Nutrition Malnutrition Evidence of Malnutrition Exists Yes Malnutrition (severe): Acute Illness/Injury Evidenced By Suboptimal Energy Intake ( Severe),Weight Loss (Severe) Clinical Problem Acute Disease or Injury Related Malnutrition Etiology severe, acute malnutrition related to inadequate energy intake Signs/Symptoms as evidenced by estimated PO intake meeting <50% of estimated energy needs > 5 days, 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 Problem Recommendation Dietitian Recommendations/Changes recommend regular diet when medically appropriate given signs and symptoms of malnutrition; continue 240mL ensure clear TID w/ meals for additional nutrition if consumed when diet is resumed Lab / Micro Data 06/25/23 06:00 06/25/23 06:00 Labs: Laboratory Results - last 24 hr 06/19/23 14:30: Crossmatch See Detail 06/22/23 05:58: CA 19-9 Antigen 10, CA 19-9 Serial Monitor Not Reportable 06/23/23 08:05: Diff Path Review Reviewed 06/25/23 05:35: Urine Color Yellow, Urine Clarity Clear, Urine pH 6.0, Ur Specific [place] 1.010, Urine Protein 30 H, Urine Glucose (UA) Normal, Urine Ketones Negative, Urine Occult Blood 10 H, Urine Nitrite Negative, Urine Bilirubin Negative, Urine Urobilinogen Normal, Ur Leukocyte Esterase Negative, Urine RBC 5-10 SEEN, Urine WBC 0 SEEN, Ur Squamous Epith Cells 25-50 SEEN, Urine Bacteria 0 SEEN, Hyaline Casts 5-10 SEEN, Fine Granular Casts 0-5 SEEN, Urine Mucus 0 SEEN, Urine Yeast 2+, Urine Osmolality 284, U Random Total Protein 91.6 H, Ur Random Sodium 77, Urine Creatinine 49.90, Protein/Creatinin Ratio 1836 H, Urine Potassium 33.0, Urine Chloride 95 06/25/23 06:00: WBC 42.5 H*, RBC 2.23 L, Hgb 6.9 L, Hct 21.4 L, MCV 96.0, MCH 30.9, MCHC 32.2, RDW Std Deviation 54.3 H, RDW Coeff of [place] 15.4 H, Plt Count 531 H, MPV 9.2, Immature Gran % (Auto) 1.500 H, Neut % (Auto) 91.1 H, Lymph % (Auto) 3.2 L, [place] % (Auto) 3.7, Eos % (Auto) 0.2, Baso % (Auto) 0.3, Absolute Neuts (auto) 38.7 H, Absolute Lymphs (auto) 1.36, Nucleated RBC % 0, Differential Comment SCANNED, Diff Path Review June foll, Sodium 139, Potassium 4.4, Chloride 111 H, Carbon Dioxide 18.0 L, Anion Gap 10, BUN 23 H, Creatinine 3.43 H, Estim Creat Clear Calc 15.25, Est GFR (MDRD) Af Amer 18 L, Est GFR (MDRD) Non-Af 15 L, BUN/Creatinine Ratio 6.7 L, Glucose 106, Calcium 7.8 L, Total Bilirubin 0.30, AST 25, ALT 19, Alkaline Phosphatase 115, Total Protein 5.1 L, Albumin 1.3 L, Globulin 3.8, Albumin/Globulin Ratio 0.3 L 06/25/23 09:00: Uric Acid 4.8, Phosphorus 3.2, Magnesium 2.1, Blood Type A POSITIVE, Antibody Screen NEGATIVE, Crossmatch See Detail Micro: Microbiology 06/23/23 09:32 Blood Culture (Wb) - Right Wrist Blood Culture - Preliminary No growth in 48 hours. Imaging Radiology Impression Renal Ultrasound 06/24/23 16:08 IMPRESSION: Normal ultrasound of the kidneys and urinary bladder. Electronically Signed: Pavan Garza MD at 22:50 EDT ,
[2023-06-25] MEDS: Ondansetron 4 MG/2 ML Vial IV (14:24)
[2023-06-25] MEDS: Acetaminophen 325 MG Tablet 650 MG PO (15:01)
[2023-06-25 15:33] LABS: Pathologist Review Reviewed
--- NOTE | 2023-06-25 17:25 | EX.PCM.PN.GI ---
Subjective Subjective Patient is a little bit more alert today. She denies any abdominal pain. She is tolerating a diet. Objective Data Objective Data Vital Signs: Vital Signs Temp Pulse Resp BP Pulse Ox O2 Del Method O2 Flow Rate 97.9 F 89 20 H 124/80 H 95 Room Air 2 06/25/23 13:56 06/25/23 15:17 06/25/23 15:17 06/25/23 13:56 06/25/23 13:56 06/25/23 13:56 06/24/23 12:15 Oxygen Flow Rate (L/min) 2 Oxygen Delivery Method Room Air Weight: 126 lb 8.725 oz Body Mass Index (BMI) 21.7 Intake & Output: Intake and Output for Last 24 Hours 06/23/23 06/24/23 06/25/23 23:59 23:59 23:59 Intake Total 4165.00 / 4165.00 1725 / 1725 2858.25 / 2858.25 Output Total 50 / 50 Balance 4165.00 / 4165.00 1725 / 1725 2808.25 / 2808.25 Medical Nutrition Assessment Dietitian: Malnutrition Criteria Met Start: 06/19/23 16:32 Freq: Status: Active Protocol: Document 06/24/23 13:39 AG (Rec: 06/24/23 13:39 AG [id number]) Nutrition Malnutrition Evidence of Malnutrition Exists Yes Malnutrition (severe): Acute Illness/Injury Evidenced By Suboptimal Energy Intake ( Severe),Weight Loss (Severe) Clinical Problem Acute Disease or Injury Related Malnutrition Etiology severe, acute malnutrition related to inadequate energy intake Signs/Symptoms as evidenced by estimated PO intake meeting <50% of estimated energy needs > 5 days, 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 Problem Recommendation Dietitian Recommendations/Changes recommend regular diet when medically appropriate given signs and symptoms of malnutrition; continue 240mL ensure clear TID w/ meals for additional nutrition if consumed when diet is resumed Lab / Micro Data 06/25/23 06:00 06/25/23 06:00 Labs: Laboratory Results - last 24 hr 06/19/23 14:30: Crossmatch See Detail 06/22/23 05:58: CA 19-9 Serial Monitor Not Reportable 06/23/23 08:05: Diff Path Review Reviewed 06/25/23 05:35: Urine Color Yellow, Urine Clarity Clear, Urine pH 6.0, Ur Specific Tower 1.010, Urine Protein 30 H, Urine Glucose (UA) Normal, Urine Ketones Negative, Urine Occult Blood 10 H, Urine Nitrite Negative, Urine Bilirubin Negative, Urine Urobilinogen Normal, Ur Leukocyte Esterase Negative, Urine RBC 5-10 SEEN, Urine WBC 0 SEEN, Ur Squamous Epith Cells 25-50 SEEN, Urine Bacteria 0 SEEN, Hyaline Casts 5-10 SEEN, Fine Granular Casts 0-5 SEEN, Urine Mucus 0 SEEN, Urine Yeast 2+, Urine Osmolality 284, U Random Total Protein 91.6 H, Ur Random Sodium 77, Urine Creatinine 49.90, Protein/Creatinin Ratio 1836 H, Urine Potassium 33.0, Urine Chloride 95 06/25/23 06:00: WBC 42.5 H*, RBC 2.23 L, Hgb 6.9 L, Hct 21.4 L, MCV 96.0, MCH 30.9, MCHC 32.2, RDW Std Deviation 54.3 H, RDW Coeff of Bryanna 15.4 H, Plt Count 531 H, MPV 9.2, Immature Gran % (Auto) 1.500 H, Neut % (Auto) 91.1 H, Lymph % (Auto) 3.2 L, [place] % (Auto) 3.7, Eos % (Auto) 0.2, Baso % (Auto) 0.3, Absolute Neuts (auto) 38.7 H, Absolute Lymphs (auto) 1.36, Nucleated RBC % 0, Differential Comment SCANNED, Diff Path Review June, Sodium 139, Potassium 4.4, Chloride 111 H, Carbon Dioxide 18.0 L, Anion Gap 10, BUN 23 H, Creatinine 3.43 H, Estim Creat Clear Calc 15.25, Est GFR (MDRD) Af Amer 18 L, Est GFR (MDRD) Non-Af 15 L, BUN/Creatinine Ratio 6.7 L, Glucose 106, Calcium 7.8 L, Total Bilirubin 0.30, AST 25, ALT 19, Alkaline Phosphatase 115, Total Protein 5.1 L, Albumin 1.3 L, Globulin 3.8, Albumin/Globulin Ratio 0.3 L 06/25/23 09:00: Uric Acid 4.8, Phosphorus 3.2, Magnesium 2.1, Blood Type A POSITIVE, Antibody Screen NEGATIVE, Crossmatch See Detail Micro: Microbiology 06/23/23 09:32 Blood Culture (Wb) - Right Wrist Blood Culture - Preliminary No growth in 48 hours. 06/18/23 12:35 Blood Culture (Wb) - Right Wrist Blood Culture - Final No growth in 5 days. 06/18/23 12:20 Blood Culture (Wb) - Arm Left Blood Culture - Final No growth in 5 days. 06/18/23 13:50 Urine, Catheterized Urine Culture - Final Culture exhibits no growth. 06/19/23 11:00 Stool Stool Occult Blood (DOMINGO) - Final Occult Blood Positive 06/18/23 17:54 Mucosa - Nasopharyngeal Respiratory Panel (PCR) - Final 06/18/23 13:50 Urine, Clean Catch Legionella Antigen - Final 06/18/23 13:50 Urine, Clean Catch Streptococcus pneumoniae Antigen (M - Final 06/18/23 13:32 Mucosa - Nose SARS-CoV-2, Influenza & RSV (PCR) - Final Radiography Diagnostic Testing: Radiology Impression Renal Ultrasound 06/24/23 16:08 IMPRESSION: Normal ultrasound of the kidneys and urinary bladder. Electronically Signed: Pavan Garza MD at 22:50 EDT , Physical Exam Narrative Feeling better, no subjective fever overnight. No abd, mild dyspnea Const alert and no apparent distress General Appearance: cooperative Resp Auscultation: diminished lung sounds Cardio regular rate and regular rhythm GI soft to palpation, non-tender and non-distended Skin no rashes or lesions noted Assessment & Plan Assessment/Plan (1) Encephalopathy: (2) History of alcohol abuse: (3) Lower GI bleeding: PLAN: Plan The patient is a 57 y/o F with history of fatigue, weakness, confusion and hypertension referred from her pulmonary office with history of recent admission to [facility] and at that time diagnosed with lung mass with new office visit for evaluation of this new mass. She was also discovered to have a significant anemia and a mass in the distal ileum. Significant anemia. Agree with blood transfusion. She should undergo an upper endoscopy to evaluate upper GI tract to look for signs and symptoms of acute on chronic GI blood loss. Currently at this time she is microcytic. She has a reactive thrombocytosis possibly secondary to leukocytosis and or GI blood loss. Acute Encephalopathy, Multifactorial, associated with Possible Acute RUL PNA complicated by recent Lung Mass/SB mass with Underlying malignancy Abnormality in the ileum. She should undergo colonoscopy to evaluate her lower GI tract for lymphoma, adenocarcinoma, carcinoid. She was explained alternatives, risk, benefits including outstanding bleeding, infection, sepsis, perforation, need for emergent urgent . She have an ASA of 3. 06/21/23-she underwent an upper endoscopy yesterday. Findings from the EGD: - No gross lesions in the entire esophagus. - Non-bleeding gastric ulcer with no stigmata of bleeding. Biopsied. - Non-bleeding duodenal ulcer with no stigmata of bleeding. Recommendations : - Return patient to [facility] for [facility] care. - Clear liquid diet. - Continue present medications. - Await pathology results. She was not able to undergo colonoscopy. She did have a large f bloody bowel movement prior to the procedure and still continues to have bloody bowel movements. She does need to undergo colonoscopy but it is not safe for her at this time and she is getting a lung biopsy tomorrow. Recommended transfer use blood for hemoglobin less than 7 or hematocrit less than 30% 06/22/23-she received transfusion of 2 units of packed red blood cells. She continues on antibiotic for postobstructive pneumonia. She underwent lung biopsy. She still continues to have lower GI bleeding. I would like to see if this is metastatic disease or a separate lesion such as carcinoid tumor, adenocarcinoma, squamous cell carcinoma or infiltrative disease such as lymphoma. She should only be on a liquid diet so she can have a colonoscopy when she decides that she will take the prep. Continue to follow H&H. 06/25/23-she underwent colonoscopy and about 10 cm into the terminal ileum was reviewed. No mass was seen endoscopically. Her hemoglobin continues to drop. She has a severe leukocytosis with anemia and reactive thrombocytosis. Her kidney function is worse she is being seen by nephrology. Working differential diagnosis is ATN. Enterography was ordered to evaluate small bowel mass. I will also order a bleeding scan to see if we can locate where she may be losing blood in the GI tract. Charges/Coding Visit Charges Inpatient E&M: 67788 Subs Hosp L3
[2023-06-25 17:42] LABS: Hematocrit 24.4 % (37-47); Hemoglobin 7.9 g/dL (12.0-15.0)
[2023-06-25] MEDS: Mag Hydrox/Al Hydrox/Simeth 30 ML UDC 15 ML PO (18:51)
[2023-06-25 19:52] LABS: Urine Sodium 102 mmol/L (Not Establ.)
--- NOTE | 2023-06-25 20:59 | CT_ITS ---
EXAM: CT ABDOMEN AND PELVIS WITHOUT INTRAVENOUS CONTRAST CLINICAL INDICATION: worsening abd pain, recent c-scope TECHNIQUE: Helically acquired images were obtained of the abdomen and pelvis without intravenous contrast. This CT exam was performed using one or more of the following dose reduction techniques: automated exposure control, adjustment of the mA and/or kV according to patient size, and/or use of iterative reconstruction technique. RADIATION DOSE: CTDIvol = 6.10 mGy, DLP = 327.72 mGy-cm COMPARISON: 06/19/2023 FINDINGS: LOWER THORAX: Bilateral small pleural effusions, worse than prior study and associated with compressive atelectasis of the lower lobes, left worse than right. No cardiomegaly. ABDOMEN: LIVER: Unremarkable. Homogeneous. GALLBLADDER AND BILE DUCTS: Unremarkable. No calcified gallstones. No gallbladder distention or wall edema. No intra- or extrahepatic biliary ductal dilation. PANCREAS: Unremarkable. No focal cystic mass. SPLEEN: Unremarkable. Normal size without focal cystic or solid mass. ADRENALS: Unremarkable. No nodules. KIDNEYS AND URETERS: Unremarkable. Normal renal size and position. No hydronephrosis. STOMACH AND BOWEL: Evaluation of the GI tract is limited by the absence of oral contrast. Grossly unremarkable stomach. Abnormal appearance of the small bowel which is fluid-filled and diffusely distended consistent with obstruction. Patient has a known mass of the ileum which appears larger than on previous study and may represent the cause of the obstruction although bowel loops both prior to and distal to the mass are distended. Alternatively, there is an abnormal appearance of mesentery in the mid right abdomen suggestive of an internal hernia. This is seen on axial images 96-110. Note again that the exam is limited by the absence of oral contrast. A few short loops of normal caliber distal ileum are seen extending to the cecum which is normal caliber. Nondistended large bowel. Again seen is diverticulosis of the sigmoid colon without evidence of diverticulitis. PELVIS: APPENDIX: No evidence of acute appendicitis. BLADDER: There is a Pastor catheter emptying the bladder. REPRODUCTIVE: Unremarkable as visualized. No mass. ABDOMEN and PELVIS: INTRAPERITONEAL SPACE: Small amounts of free fluid are seen. No free air. BONES/JOINTS: Unremarkable. No suspicious lytic or blastic abnormality. SOFT TISSUES: Mild diffuse anasarca. No discrete abdominal or pelvic wall hernia. VASCULATURE: Calcified plaque of the aorta and iliac arteries without aneurysm. LYMPH NODES: Unremarkable. No enlarged lymph nodes. CT/Abdomen/Pelvis without Cont IMPRESSION: 1. Abnormal bowel pattern consistent with a distal small bowel obstruction possibly related to the patient''s known ileal mass, and/or a right mid abdominal internal hernia. 2. Worsening of bilateral pleural effusions and compressive atelectasis of both lower lobes. Electronically Signed: Pavan Garza MD at 22:43 EDT ,
[2023-06-25] MEDS: HYDROmorphone 0.5 MG/0.5 ML SYRINGE IV (21:03)
[2023-06-25] MEDS: proCHLORPERazine 10 MG/2 ML Vial 5 MG IV (21:04)
[2023-06-25] MEDS: 0.9% Saline Lock 10 ML Syringe IV (21:04)
[2023-06-25] MEDS: Atorvastatin Calcium 80 MG Tablet 40 MG PO (21:53)
[2023-06-26] VITALS (12 sets, daily range): BP systolic 124–154; BP diastolic 67–84; PULSE 111–123; RESP 18–38; TEMP 36.4–38.2; O2SAT 93–99; BMI 22.8
[2023-06-26 04:50] LABS: Absolute Lymphocyte Count 1.84 X10^3/uL (0.83-4.51); Basophil# 0.18 X10^3/uL; Basophil% 0.4 % (0-1); Eosinophil# 0.12 X10^3/uL; Eosinophils% 0.3 % (0-5); Hemoglobin 6.4 g/dL (12.0-15.0); Lymphocyte # 1.84 X10^3/ul (0.83-4.51); Lymphocyte % 3.9 % (19-41); Mean Corpuscular Hgb 30.5 pg (27.0-32.0); Mean Corpuscular Volume 95.2 fL (81-99); Monocyte# 1.76 X10^3/uL; Monocyte% 3.7 % (0-10); NRBC Flagged by Analyzer 0 % (0-5); Neutrophil # 41.99 X10^3/uL (2.7-7.7); POSITIVE COUNT YES; POSITIVE DIFFERENTIAL YES; Platelet Count 462 K/mm3 (150-450); RBC Distribution Width CV 15.6 % (11.6-14.6); RBC Distribution Width SD 53.9 fl (35.1-43.9)
--- NOTE | 2023-06-26 05:01 | PCM.HOSP.N ---
Hospitalist Note Notified by nursing staff around 9 PM the patient was having worsening abdominal pain. Evaluated patient at the bedside. Patient was laying in bed and did appear mild uncomfortable. She had just received a dose of IV Dilaudid about 5 to 10 minutes prior to my evaluation with some improvement in her pain. She stated the pain was fairly diffuse in the abdomen, possibly slightly worse in the lower abdomen. On exam, abdomen was mildly distended but remained soft. She did have mild tenderness to palpation fairly diffusely in the mid and lower abdomen. On chart review, GI is following the patient for ongoing blood loss that was suspected due to lower GI bleed. CT abdomen pelvis on admit showed a 4.5 x 4 x 5 cm heterogenous mass in the distal ileum. EGD showed no source of bleeding. Patient had colonoscopy done on 06/23 and strangely there is no mass visualized in the distal ileum at that time. Patient had received 2 units of blood with improvement in hemoglobin but continued to have dark stools. Obtained stat CT abdomen pelvis without contrast for further evaluation. This showed an abnormal appearance of the small bowel which was fluid-filled and diffusely distended consistent with obstruction. Notably oral contrast was not given as I had lower suspicion for SBO, and IV contrast was not given due to worsening MANDEEP. General surgery consulted. Patient made n.p.o. Per nursing staff, apparently an NG tube was attempted to be placed sometime earlier in the hospitalization but was not able to be done for some reason. Patient is fairly stable and has not had any episodes of vomiting to this point, we will hold on placing NG tube at this time.
[2023-06-26] MEDS: Piperacil/Tazobactam 3.375 GM in 0.9% Normal Saline (50mL MB+) 50 ML IV (05:20)
[2023-06-26 05:31] LABS: ALB/GLOB Ratio 0.4 RATIO (0.9-2.4); AST(SGOT) 25 U/L (15-37); Alanine Aminotransfer ALT/SGPT 19 U/L (13-56); Albumin, Serum 1.2 g/dL (3.2-5.0); Alkaline Phosphatase 105 U/L (45-117); Anion Gap 7 (5-15); BUN 30 mg/dL (7-18); BUN/Creat Ratio 6.9 RATIO (10-20); Calcium,Total 7.9 mg/dL (8.5-10.1); Chloride 116 mmol/L (98-107); Creatinine, Serum 4.35 mg/dL (0.55-1.02); EST Glomerular Filtration Rate 11 mL/min (>60); Est Glom Filt Rate - Afr Amer 13 mL/min (>60); Estimated Creatinine Clearance 12.02 ml/min; Globulin 3.3 g/dL (2.2-4.2); Glucose 103 mg/dL (74-106); Potassium 5.1 mmol/L (3.5-5.1); Protein, Total 4.5 g/dL (6.4-8.2); Sodium Level 138 mmol/L (136-145)
[2023-06-26 05:36] LABS: Differential Indicated SCAN CRITERIA MET; White Blood Count 47.2 K/mm3 (4.4-11.0)
[2023-06-26] MEDS: Acetaminophen 325 MG Tablet 650 MG PO (06:50)
--- NOTE | 2023-06-26 07:41 | EX.PCM.CON.S ---
Assessment & Plan Assessment/Plan (1) Small bowel obstruction: PLAN: Patient is a 57-year-old female with numerous comorbidities that are acutely exacerbated who had CT imaging yesterday that was read by radiology is concerning for possible small bowel obstruction. They further describe the patient's known small bowel mass as potential origin for the small bowel obstruction. While patient has had some mild distention (according to nursing) she has had no vomiting. Nasogastric tube was not placed initially due to prior difficulty with tube passage, but it was placed at bedside successfully today. There is scant output from this tubing. Patient has not had any bowel movements overnight. Her abdominal exam does not show evidence of peritonitis. Upon my review of patient's CT imaging there is minimal proximal small bowel dilatation index to no gastric distention. Further there is air within the rectum. Thus, based on patient's CT imaging and clinical picture I would be at low suspicion for a partial obstruction. Secondly, I do not find evidence of threatened/ischemic bowel as would be expected in the case of an internal hernia based on her benign abdominal exam (requested lactic acid is also within normal limits at 1.0). However, it is my recommendation to pursue urgent transfer to a tertiary facility as her blood counts have not stabilized and I believe patient is at risk for needing surgical intervention for her small bowel mass. There are number of factors with her current clinical status that significantly complicate this picture. I would be concerned about perioperative hypotension in light of her recent cerebral infarcts and present anemia, but over resuscitation would have to be avoided as well given her MANDEEP/acute renal failure (patient is severely oliguric). To compound this latter issue she has known COPD, new right lung mass, probable pneumonia, and pleural effusions. It is with these perioperative concerns that I give my recommendation for urgent transfer. In the interim recommend judicious resuscitative fluids, NG tube to low intermittent wall suction (KUB is reviewed and tube terminates within the stomach), aspiration precautions, correction of underlying coagulopathy, and please notify surgery of any new developments. Concerning patient's pending tagged RBC scan, I would question the clinical utility here since we have limited means to follow-up the result and I believe priority should be placed on seeking patient's transfer. Alfred Mandel MD General Surgery Endocrine Surgery Pager: [facility] [address] [place] [address], [address] [place] [id number] Office: [phone] (2) Small bowel mass: HPI Consult Data Date of Consult: 06/26/23 HPI Narrative HPI Narrative: CARL PERALTA, is a 57 F who presented to [facility] 8 days ago with altered mental status and recent pneumonia. Shortly into her hospital stay she was found to have several acute cerebral and basal ganglia infarcts seen on MRI. 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 Along with this lung mass she is noted to have a concurrent mass that appeared to arise from the terminal ileum. Most recently, she was diagnosed with anemia and underwent colonoscopy with gastroenterology 2 days ago. They reportedly identified a source of bleeding but could not find evidence of a mass. Patient has unfortunately required ongoing transfusion despite this treatment of bleeding. I was notified this morning that patient had progressive abdominal distention, complaints of increased abdominal pain, and progressive tachypnea. Patient is oriented to person only this morning but nursing shares that she has had no bowel movements overnight. They share that she has described mild nausea but no vomiting. CT imaging of the abdomen pelvis was obtained without contrast given evidence of acute kidney injury. This was read by radiology is concerning for small bowel obstruction with possible internal hernia. Patient's known ileal mass was felt to be increased in size. [facility] Medical History (Updated 06/26/23 @ 10:[address] Alfred Mandel MD) Chronic anemia COPD (chronic obstructive pulmonary disease) Former tobacco use History of alcohol abuse Iron deficiency Lung mass Small bowel mass Home Medications cefdinir 300 mg capsule 300 mg PO Q12H 06/18/23 [History Last Taken 06/17/23] ferrous fumarate 324 mg (106 mg iron) tablet (Ferrocite) 324 mg PO DAILY 06/18/23 [History Last Taken 06/17/23] folic acid 1 mg tablet 1 mg PO DAILY 06/18/23 [History Last Taken 06/17/23] magnesium oxide 400 mg (241.3 mg magnesium) tablet 400 mg PO TID 06/18/23 [History Last Taken 06/17/23] thiamine HCl (vitamin B1) 100 mg tablet 100 mg PO DAILY 06/18/23 [History Last Taken 06/17/23] Allergy/AdvReac Type Severity Reaction Status Date / Time No Known Allergies Allergy Verified 06/18/23 11:51 Family History Mother Heart disease Hypertension Myocardial infarction CAD (coronary artery disease) Father Brain cancer Surgical History History of dental surgery Social History household members: spouse Smoking Status: Current every day smoker tobacco type: cigarettes how long ago did patient quit smoking: Quit 2 wks prior to admission, smoked 1 ppd intermittently since teen. alcohol intake: former details: Sober x 2 weeks, 1/4-1/3 of 1L vodka daily. substance use type: does not use Physical Exam Const alert Constitutional Narrative: Mild distress?but patient seems in most distress from recently placed nasogastric tube Orientation / Consciousness: confused Resp Resp Narrative: Tachypneic with shallow inspirations GI GI Narrative: No scars, soft, patient describes mild tenderness on both sides of her abdomen, no guarding. Nasogastric tube with minimal volume of water and food stiff. Nonbilious. Medical Records Data Medical Nutrition Assessment Dietitian: Malnutrition Criteria Met Start: 06/19/23 16:32 Freq: Status: Active Protocol: Document 06/24/23 13:39 (Rec: 06/24/23 13:39 [id number]) Nutrition Malnutrition Evidence of Malnutrition Exists Yes Malnutrition (severe): Acute Illness/Injury Evidenced By Suboptimal Energy Intake ( Severe),Weight Loss (Severe) Clinical Problem Acute Disease or Injury Related Malnutrition Etiology severe, acute malnutrition related to inadequate energy intake Signs/Symptoms as evidenced by estimated PO intake meeting <50% of estimated energy needs > 5 days, unintentional 9% wt 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 < 2 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 Active Problem Recommendation Dietitian Recommendations/Changes recommend regular diet when medically appropriate given signs and symptoms of malnutrition; continue 240mL ensure clear TID w/ meals for additional nutrition if consumed when diet is resumed Lab / Micro Data 06/26/23 04:25 06/26/23 04:25 Labs: Laboratory Results - last 24 hr 06/19/23 14:30: Crossmatch See Detail 06/23/23 08:05: Diff Path Review Reviewed 06/25/23 06:00: Differential Comment SCANNED, Diff Path Review June foll 06/25/23 09:00: Uric Acid 4.8, Phosphorus 3.2, Magnesium 2.1, Blood Type A POSITIVE, Antibody Screen NEGATIVE, Crossmatch See Detail 06/25/23 17:18: Ur Random Sodium 102 06/25/23 17:22: Hgb 7.9 L, Hct 24.4 L 06/26/23 04:25: WBC 47.2 H*, RBC 2.10 L, Hgb 6.4 L, Hct 20.0 L, MCV 95.2, MCH 30.5, MCHC 32.0, RDW Std Deviation 53.9 H, RDW Coeff of Bryanna 15.6 H, Plt Count 462 H, MPV 9.0, Immature Gran % (Auto) 2.700 H, Neut % (Auto) 89.0 H, Lymph % (Auto) 3.9 L, [place] % (Auto) 3.7, Eos % (Auto) 0.3, Baso % (Auto) 0.4, Absolute Neuts (auto) 42.0 H, Absolute Lymphs (auto) 1.84, Nucleated RBC % 0, Diff Path Review June foll, Sodium 138, Potassium 5.1, Chloride 116 H, Carbon Dioxide 15.0 L, Anion Gap 7, BUN 30 H, Creatinine 4.35 H, Estim Creat Clear Calc 12.02, Est GFR (MDRD) Af Amer 13 L, Est GFR (MDRD) Non-Af 11 L, BUN/Creatinine Ratio 6.9 L, Glucose 103, Calcium 7.9 L, Total Bilirubin 0.30, AST 25, ALT 19, Alkaline Phosphatase 105, Total Protein 4.5 L, Albumin 1.2 L, Globulin 3.3, Albumin/Globulin Ratio 0.4 L 06/26/23 06:30: Crossmatch See Detail Micro: Microbiology 06/23/23 09:32 Blood Culture (Wb) - Right Wrist Blood Culture - Preliminary No growth in 48 hours. Imaging Radiology Impression Abdomen/Pelvis CT 06/25/23 20:59 IMPRESSION: 1. Abnormal bowel pattern consistent with a distal small bowel obstruction possibly related to the patient''s known ileal mass, and/or a right mid abdominal internal hernia. 2. Worsening of bilateral pleural effusions and compressive atelectasis of both lower lobes. Electronically Signed: Pavan Garza MD at 22:43 EDT , Charges/Coding Visit Charges Inpatient E&M: 60057 Init Hosp L2
--- NOTE | 2023-06-26 08:19 | PCM.PN.HOSP ---
Reason for Visit Reason for Visit: Diagnoses Malignant neoplasm of unspecified part of right bronchus or lung (06/18/23) Iron deficiency anemia secondary to blood loss (chronic) (06/18/23) Anemia, unspecified (06/18/23) Alcohol abuse, in remission (06/18/23) Encephalopathy, unspecified (06/18/23) Cerebral infarction due to unspecified occlusion or stenosis of unspecified carotid artery (06/18/23) Hypotension, unspecified (06/18/23) Chronic obstructive pulmonary disease, unspecified (06/18/23) Other specified diseases of intestine (06/18/23) Gastrointestinal hemorrhage, unspecified (06/18/23) Acute kidney failure, unspecified (06/18/23) Fever, unspecified (06/18/23) Other nonspecific abnormal finding of lung field (06/18/23) Objective Data Objective Data Vital Signs: Vital Signs Temp Pulse Resp BP Pulse Ox O2 Del Method O2 Flow Rate 100.7 F H 123 H 24 H 126/77 H 96 Nasal Cannula 2 06/26/23 06:59 06/26/23 06:59 06/26/23 06:59 06/26/23 06:59 06/26/23 07:36 06/26/23 07:36 06/26/23 07:36 Oxygen Flow Rate (L/min) 2 Oxygen Delivery Method Nasal Cannula Weight: 133 lb 6.075 oz Body Mass Index (BMI) 22.8 Intake & Output: Intake and Output for Last 24 Hours 06/24/23 06/25/23 06/26/23 23:59 23:59 23:59 Intake Total 1725 / 1725 3408.25 / 3408.25 50 / 50 Output Total 100 / 100 Balance 1725 / 1725 3308.25 / 3308.25 50 / 50 Medical Nutrition Assessment Dietitian: Malnutrition Criteria Met Start: 06/19/23 16:32 Freq: Status: Active Protocol: Document 06/24/23 13:39 AG (Rec: 06/24/23 13:39 AG [id number]) Nutrition Malnutrition Evidence of Malnutrition Exists Yes Malnutrition (severe): Acute Illness/Injury Evidenced By Suboptimal Energy Intake ( Severe),Weight Loss (Severe) Clinical Problem Acute Disease or Injury Related Malnutrition Etiology severe, acute malnutrition related to inadequate energy intake Signs/Symptoms as evidenced by estimated PO intake meeting <50% of estimated energy needs > 5 days, 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 Recommendation Dietitian Recommendations/Changes recommend regular diet when medically appropriate given signs and symptoms of malnutrition; continue 240mL ensure clear TID w/ meals for additional nutrition if consumed when diet is resumed Lab / Micro Data 06/26/23 12:19 06/26/23 04:25 Labs: Laboratory Results - last 24 hr 06/19/23 14:30: Crossmatch See Detail 06/23/23 08:05: Diff Path Review Reviewed 06/25/23 06:00: Differential Comment SCANNED, Diff Path Review May foll 06/25/23 09:00: Uric Acid 4.8, Phosphorus 3.2, Magnesium 2.1, Blood Type A POSITIVE, Antibody Screen NEGATIVE, Crossmatch See Detail 06/25/23 17:18: Ur Random Sodium 102 06/25/23 17:22: Hgb 7.9 L, Hct 24.4 L 06/26/23 04:25: WBC 47.2 H*, RBC 2.10 L, Hgb 6.4 L, Hct 20.0 L, MCV 95.2, MCH 30.5, MCHC 32.0, RDW Std Deviation 53.9 H, RDW Coeff of Bryanna 15.6 H, Plt Count 462 H, MPV 9.0, Immature Gran % (Auto) 2.700 H, Neut % (Auto) 89.0 H, Lymph % (Auto) 3.9 L, [place] % (Auto) 3.7, Eos % (Auto) 0.3, Baso % (Auto) 0.4, Absolute Neuts (auto) 42.0 H, Absolute Lymphs (auto) 1.84, Nucleated RBC % 0, Diff Path Review June foll, Sodium 138, Potassium 5.1, Chloride 116 H, Carbon Dioxide 15.0 L, Anion Gap 7, BUN 30 H, Creatinine 4.35 H, Estim Creat Clear Calc 12.02, Est GFR (MDRD) Af Amer 13 L, Est GFR (MDRD) Non-Af 11 L, BUN/Creatinine Ratio 6.9 L, Glucose 103, Calcium 7.9 L, Total Bilirubin 0.30, AST 25, ALT 19, Alkaline Phosphatase 105, Total Protein 4.5 L, Albumin 1.2 L, Globulin 3.3, Albumin/Globulin Ratio 0.4 L 06/26/23 06:30: Crossmatch See Detail 06/26/23 07:30: Lactic Acid 1.0 Micro: Microbiology 06/23/23 09:32 Blood Culture (Wb) - Right Wrist Blood Culture - Preliminary No growth in 48 hours. 06/18/23 12:35 Blood Culture (Wb) - Right Wrist Blood Culture - Final No growth in 5 days. 06/18/23 12:20 Blood Culture (Wb) - Arm Left Blood Culture - Final No growth in 5 days. 06/18/23 13:50 Urine, Catheterized Urine Culture - Final Culture exhibits no growth. 06/19/23 11:00 Stool Stool Occult Blood (DOMINGO) - Final Occult Blood Positive 06/18/23 17:54 Mucosa - Nasopharyngeal Respiratory Panel (PCR) - Final 06/18/23 13:50 Urine, Clean Catch Legionella Antigen - Final 06/18/23 13:50 Urine, Clean Catch Streptococcus pneumoniae Antigen (M - Final 06/18/23 13:32 Mucosa - Nose SARS-CoV-2, Influenza & RSV (PCR) - Final Radiography Diagnostic Testing: Radiology Impression Abdomen/Pelvis CT 06/25/23 20:59 IMPRESSION: 1. Abnormal bowel pattern consistent with a distal small bowel obstruction possibly related to the patient''s known ileal mass, and/or a right mid abdominal internal hernia. 2. Worsening of bilateral pleural effusions and compressive atelectasis of both lower lobes. Electronically Signed: Pavan Garza MD at 22:43 EDT , Physical Exam Narrative Seen and examined. Overnight events noticed. Discussed with patient's RN. Patient had progressively worsening abdominal pain since yesterday evening. Last evening nurse called me patient on PPI and had already upper and lower endoscopy, therefore tried Mylanta but did not relieve the pain. Patient further increased to intensity at night hospitalist examined the patient and had CT abdomen/pelvis without contrast. Patient is states abdominal pain diffuse but more predominantly in lower quadrants which spreads as a band from her left to right. It shows multiple distended fluid-filled small bowel loops consistent with obstructions. There is also decrease in the urine output Patient has multiple active issues and very sick. I talked to the patient's over the who is main caregiver. Plan is to transfer to the patient to tertiary care Physical exam General: Awake, oriented x 3. Fatigue, mild distress, looks sick. answers questions and understands and responds slowly Oral: Oral mucosa dry. No Gingival or Mucosal Lesions/ Ulcerations Neck: Supple, No JVD, could not hear bruits does not follow commands Chest wall/Lungs: Air entry diminished in bilateral lung bases. No crepitation/rhonchi. On 2 L of oxygen Cardiovascular: Sinus tachycardia normal S1, Normal S2, No M/G/R Abdomen: Bowel Sounds sluggish to absent. Soft. Tenderness present diffusely mainly in lower quadrants predominantly mid abdomen. Distended. : Pastor catheter, low urine output/oliguria no dysuria. No renal angle tenderness. No suprapubic tenderness. Extremities: No edema, Capillary Refill Less than 3 Seconds Skin: No rashes, No breakdown Musculoskeletal: No Tenderness to Palpation of Joints or Extremities. Mild degenerative arthritis of knees Neurological: Awake. Language function and dysarthria has improved. No dysphagia. NIH scale improved. Psych/Mental Status: Flat affect. 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 Patient was recently diagnosed with a pulmonary mass and is currently being worked up. Had recently been treated for pneumonia with cefdinir 1. Acute encephalopathy ? Etiology not clear. Patient underwent evaluation with CT of the head which was negative for acute CVA ? 06/20/2023;Patient did experience intermittent episodes of confusion during the evening given her history of alcohol use patient was started on phenobarb taper. Also ordered MRI of the brain with and without contrast given the finding of a lung mass. ? 06/21/2023; phenobarb taper discontinued after discussion with patient . The patient has been patient did not drink any alcohol 2 weeks prior to her admission. 06/22: Patient mental status better than yesterday. Still sometimes unaware and confused and disoriented. 06/23: Acute encephalopathy has resolved. 06/25: Patient looks a little fatigued, sick and slow probably due to bowel obstruction. 2. Small bowel obstruction: CT abdomen pelvis/without oral and IV contrast reviewed. Previous CT abdomen shows evidence of 4.5 x 4 x 5 cm denies mass in the distal ileum which could not be reached through the colonoscopy although Dr. Clement try to reach [address] abdomen pelvis of 06/24 night showed mid to distal small bowel obstruction possibly due to ileal mass/right abdominal internal herniation. Discussed with the surgeon. Patient had a little bit bowel movement per nursing charting until yesterday. Still passing flatus. No vomiting. Surgeon and I and other consultants, we agree that patient needs to transfer to tertiary care hospital because of complicated history and multiple acute issues. For now conservative management NG tube, IV fluid, total n.p.o. I called [facility] and gave preliminary information regarding history, exam and imaging findings and assessment and plan. I talked to hospitalist of [facility] that he wanted to run with the top closer in [facility] so that patient can go there as she is as many active compounding problems. I further talked to the top closer and [facility] and is up the patient in ICU. He knows about the urgency of transfer most likely she will be transferred by the evening today. Patient is being transferred to ICU as she is Fast is tolerating. 3. Right upper lobe pneumonia -?? Postobstructive pneumonia patient has significant leukocytosis. Patient started on Zosyn and vancomycin to cover for multidrug-resistant organisms ? 06/20/2023; CT of the abdomen pelvis and chest did show 3.7 cm x 3.3 cm mass in the lateral aspect of the right upper lobe. 5.6 mm faint nodule seen in the posterior aspect of the right upper lobe.There is a 4.5 cm x 4 cm x 5 cm heterogeneous mass in the distal ileum. Bladder wall thickening although bladder is not completely distended at this time.. An order was given for patient to undergo CT-guided biopsy on 06/22/202306/22, patient did spike fever yesterday. ID consult requested. Immature granulocyte 1.1%. Discussed with ID continue same antibiotic. Positive fever may be from tumor/paraneoplastic syndrome. 06/24: Vancomycin was stopped on 06/23. Vanco trough was high 25.2 and 27.7. Last dose was on 06/22. 3. MANDEEP: Creatinine suddenly increased to 2.1. BUN normal.It was normal before 0.5, 0.6. IV fluid normal saline started. Monitor kidney function.No Pastor catheter. 06/24: MANDEEP with relatively normal BUN probably due to ATN. Vancomycin suspected. Creatinine jumped up from 2.1-3.43. BUN 11-23. 1 L IV fluid normal saline bolus and then continue. Medications reconciliation done and nephrotoxic medications were discontinued. IV Zosyn change from every 8 tolerated every 12 hourly. Kidneys and bladder ultrasound shows normal thickness of distended urinary bladder although suboptimally evaluated no demonstrated mass. No bladder calculi. Overall since patient urine output has also decreased. Pastor catheter ordered for strict YURIDIA's. Security And Privacy Consultant consult reviewed and appreciated. Will hold for MR enterography for now. 06/25: Further worsening of creatinine looks ATN. Urine output further dropped. Charted as 100 on 06/24. Had a small bowel movement. Intake and output charting documented as +16,000 but prior to 06/24, patient had urinary incontinence and urine output was not charted accurately 4. Lung mass ? CT of the abdomen pelvis and chest ordered for subsequent eval plan is for patient to follow-up with pulmonary medicine when medically stable 06/21: Plan for lung biopsy today. 06/21 lung biopsy was done. Postprocedure x-ray did not show pneumothorax. 06/23: Lung biopsy pathology shows known cell lung cancer, adenocarcinoma, poorly differentiated NSCLC. Consequently oncology consult was called mainly for not responding severe anemia despite multiple transfusion. CT abdomen/pelvis with contrast on 06/18 showed evidence of 4.5 x 4 x 5 cm mass mass in the distal ileum with multiple colonic diverticula consistent with diverticulosis. Discussed with the GI. MR enterography ordered. 5. 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 MRI demonstrated Multiple small acute right cerebral and basal ganglia infarcts, likely embolic in etiology. CT of the head and neck does not show evidence for large vessel occlusion in the [place] region but severe stenosis and near occlusion of the proximal right internal carotid artery in the neck with string of flow. Otherwise mild diffuse narrowing of the caliber of the right ICA mid to distal neck and intracranial portion without significant stenosis or occlusion. [facility] teleneuro patient started on antiplatelet therapy as well as statin therapy ordered 2D echo and consultation placed to vascular surgery regarding patient severe carotid artery stenosis 06/21: Discussed with the vascular surgeon Dr. Rmaan and recommended right CEA after other ongoing medical issues are stabilized including biopsy of the lung mass and GI bleed 06/22: Discussed with the [facility] neurologist. LDL 49. Continue aspirin. 5. Anemia - Secondary to chronic disorder/underlying malignancy monitoring H&H and transfuse if patient becomes symptomatic or hemoglobin falls below 7. With the patient hemoglobin being low at 6.1 did undertake iron studies, B12 as well as ferritin levels and order was given for patient to be transfused 1 unit PRBC ? 06/20/2023; patient was seen by Dr. Clement with GI recommendations for patient to undergo both upper and lower endoscopic evaluation ?06/21/2023; EGD by Dr. Clement on 06/28/2023 for results as below 06/21: Hemoglobin dropped to 6.2. from 7.4. 1 unit of PRBC transfusion ordered. Impressions : - No gross lesions in the entire esophagus. - Non-bleeding gastric ulcer with no stigmata of bleeding. Biopsied. - Non-bleeding duodenal ulcer with no stigmata of bleeding. Recommendations : - Return patient to [facility] for [facility] care. - Clear liquid diet. - Continue present medications. - Await pathology results. ?Patient is scheduled to undergo colonoscopy on 06/22/2023. 06/22: Severe anemia. Patient had PRBC transfusion. Posttransfusion CBC, H&H 8.1/24%. Platelet count 567,000. Critical high WBC count. On leukocytosis 06/23: Hemoglobin dropped to 7.3. Leukocytosis 36,000 mainly neutrophil 89% lymphocyte 3.6%.Recommended evidence of 4.5 x 4 cm immature granulocytes 2.2%. Neutrophilia, monocytosis and leukocytosis. Colonoscopy shows 1 cm polyp in rectum. Anal fissure diverticulosis. Patient might of bleeding from diverticulosis but still does not account for the severity of loss of blood. MR enterography ordered. impressions : - One 20 mm polyp in the rectum, removed with a hot snare. Resected and retrieved. - Anal fissure. Treated with a heater probe. - Diverticulosis in the recto-sigmoid colon, in the sigmoid colon and in the descending colon. - The examined portion of the ileum was normal. Recommendations : - Return patient to [facility] for [facility] care. - Resume regular diet. - Continue present medications. - Await pathology results. - Repeat colonoscopy in 1 year for surveillance. 6. Hypertension - Blood pressure controlled, home medications continued with dose adjustment as needed 7. COPD with acute exacerbation - Patient started on bronchodilator treatment, systemic steroid as well as antibiotic therapy. Patient placed on oxygen titrated to keep saturation greater than 90. 8. Tobacco dependence - Counseled on cessation, offered nicotine patch for tobacco cravings 9. CT evidence of old lacunar infarct ? Patient was started on antiplatelet therapy with aspirin held given her significant anemia 10. Hypokalemia -Corrected per protocol, repeat labs ordered for a.m. 11. DVT prophylaxis ? Patient has been started on enoxaparin discontinued given her significant anemia. Initiated SCDs. Plan is to resume Lovenox once colonoscopy does not reveal any evidence of GI bleed Time spent in the patient's overall evaluation,decision-making process, review of diagnostic data, adjustment of management, discussion with other providers, nursing nursing and ancillary staff involved in patient's care documentation 45 minutes Total time of the visit including total time spent in counseling or coordination of care, (more than 50% of the total time, spent in obtaining medical information from nurses and other ancillary care providers,explaining to the patient about labs, imaging, diagnosis and management of active complex medical conditions), multiple consultants including ID, neuro and GI, clinical update, prognosis discussion with the patient's who is power of estate attorney for health, interdisciplinary rounds, review of labs and imaging is 45 minutes. Charges/Coding Visit Charges Inpatient E&M: 07338 Disch Hosp >30min
--- NOTE | 2023-06-26 09:05 | RAD_ITS ---
STUDY: X-RAY - ABDOMEN/PELVIS REASON FOR EXAM: Female, 57 years old. NG tube placement -- -- please comment on chest as well TECHNIQUE: AP supine and decubitus views of the abdomen and pelvis. COMPARISON: Comparison is made with prior study dated June 22, 2023. FINDINGS: Persistent pleural parenchymal changes at both lung bases worse at the left base. Stable mass in the lateral aspect of the right upper lobe. The nasogastric tube is coiled with the tip heading towards the gastroesophageal junction. RAD/Abdomen Single View (Portable) IMPRESSION: Persistent bilateral pleural-parenchymal changes worse at the left lung base. The nasogastric tube is in situ with the tip ending towards the gastroesophageal junction. Electronically Signed: Tomas Palmer MD at 10:26 EDT ,
[2023-06-26] MEDS: 0.9% Normal Saline (1000mL) 1,000 ML 50 ML IV (12:39)
[2023-06-26 12:53] LABS: Hemoglobin 8.7 g/dL (12.0-15.0)
--- NOTE | 2023-06-26 13:04 | PN.ID_ITS ---
Physical Exam Narrative Worsened abd pain overnight, seen by surgery this AM, CT repeated, transfer planned. No fever, denies cough/sputum. Const alert and no apparent distress Resp normal air movement Auscultation: diminished lung sounds Cardio regular rate and regular rhythm GI soft to palpation GI Narrative: mild soreness Skin no rashes or lesions noted ID ID: Route of nutrition/ use of supplements: [] Nutritional Intake: [] IV Site: [] Pastor Catheter: [] Assessment & Plan Assessment/Plan (1) Carotid stenosis, symptomatic, with infarction: (2) Encephalopathy: (3) COPD (chronic obstructive pulmonary disease): (4) History of alcohol abuse: (5) Lung mass: (6) Fever: PLAN: Fever possibly related to new dx malignancy. Cxs neg so far. Resp pcr panel neg. Recently on cefdinir for pneumonia. Wbc now worsening. Procal was high on admit at 0.6. UAgs neg. Lung bx done 06/21 and showed NSCLC, co lonoscopy done. Cont zosyn for now. Temps are improved, still low grade fever overnight. Transfer planned. Will follow
--- NOTE | 2023-06-26 13:15 | PCM.PN.REN ---
Subjective Subjective Events noted. She now has small bowel obstruction. Creatinine continues to worsen. Minimal urine output. Objective Data Objective Data Vital Signs: Vital Signs Temp Pulse Resp BP Pulse Ox O2 Del Method O2 Flow Rate 97.6 F L 117 H 33 H 143/84 H 97 Nasal Cannula 2 06/26/23 10:53 06/26/23 10:53 06/26/23 10:53 06/26/23 10:53 06/26/23 10:53 06/26/23 10:53 06/26/23 10:53 Oxygen Flow Rate (L/min) 2 Oxygen Delivery Method Nasal Cannula Weight: 60.5 kg Body Mass Index (BMI) 22.8 Intake & Output: Intake and Output for Last 24 Hours 06/24/23 06/25/23 06/26/23 23:59 23:59 23:59 Intake Total 1725 / 1725 3408.25 / 3408.25 1048.5 / 1048.5 Output Total 100 / 100 80 / 80 Balance 1725 / 1725 3308.25 / 3308.25 968.5 / 968.5 Medical Nutrition Assessment Dietitian: Malnutrition Criteria Met Start: 06/19/23 16:32 Freq: Status: Active Protocol: Document 06/24/23 13:39 AG (Rec: 06/24/23 13:39 AG [id number]) Nutrition Malnutrition Evidence of Malnutrition Exists Yes Malnutrition (severe): Acute Illness/Injury Evidenced By Suboptimal Energy Intake ( Severe),Weight Loss (Severe) Clinical Problem Acute Disease or Injury Related Malnutrition Etiology severe, acute malnutrition related to inadequate energy intake Signs/Symptoms as evidenced by estimated PO intake meeting <50% of estimated energy needs > 5 days, 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 Recommendation Dietitian Recommendations/Changes recommend regular diet when medically appropriate given signs and symptoms of malnutrition; continue 240mL ensure clear TID w/ meals for additional nutrition if consumed when diet is resumed Lab / Micro Data 06/26/23 12:19 06/26/23 04:25 Labs: Laboratory Results - last 24 hr 06/19/23 14:30: Crossmatch See Detail 06/25/23 09:00: Crossmatch See Detail 06/25/23 17:18: Ur Random Sodium 102 06/25/23 17:22: Hgb 7.9 L, Hct 24.4 L 06/26/23 04:25: WBC 47.2 H*, RBC 2.10 L, Hgb 6.4 L, Hct 20.0 L, MCV 95.2, MCH 30.5, MCHC 32.0, RDW Std Deviation 53.9 H, RDW Coeff of Bryanna 15.6 H, Plt Count 462 H, MPV 9.0, Immature Gran % (Auto) 2.700 H, Neut % (Auto) 89.0 H, Lymph % (Auto) 3.9 L, [place] % (Auto) 3.7, Eos % (Auto) 0.3, Baso % (Auto) 0.4, Absolute Neuts (auto) 42.0 H, Absolute Lymphs (auto) 1.84, Nucleated RBC % 0, Diff Path Review June, Sodium 138, Potassium 5.1, Chloride 116 H, Carbon Dioxide 15.0 L, Anion Gap 7, BUN 30 H, Creatinine 4.35 H, Estim Creat Clear Calc 12.02, Est GFR (MDRD) Af Amer 13 L, Est GFR (MDRD) Non-Af 11 L, BUN/Creatinine Ratio 6.9 L, Glucose 103, Calcium 7.9 L, Total Bilirubin 0.30, AST 25, ALT 19, Alkaline Phosphatase 105, Total Protein 4.5 L, Albumin 1.2 L, Globulin 3.3, Albumin/Globulin Ratio 0.4 L 06/26/23 06:30: Crossmatch See Detail 06/26/23 07:30: Lactic Acid 1.0 06/26/23 12:19: Hgb 8.7 L, Hct 26.0 L Micro: Microbiology 06/23/23 09:32 Blood Culture (Wb) - Right Wrist Blood Culture - Preliminary No growth in 48 hours. 06/18/23 12:35 Blood Culture (Wb) - Right Wrist Blood Culture - Final No growth in 5 days. 06/18/23 12:20 Blood Culture (Wb) - Arm Left Blood Culture - Final No growth in 5 days. 06/18/23 13:50 Urine, Catheterized Urine Culture - Final Culture exhibits no growth. 06/19/23 11:00 Stool Stool Occult Blood (DOMINGO) - Final Occult Blood Positive 06/18/23 17:54 Mucosa - Nasopharyngeal Respiratory Panel (PCR) - Final 06/18/23 13:50 Urine, Clean Catch Legionella Antigen - Final 06/18/23 13:50 Urine, Clean Catch Streptococcus pneumoniae Antigen (M - Final 06/18/23 13:32 Mucosa - Nose SARS-CoV-2, Influenza & RSV (PCR) - Final Radiography Diagnostic Testing: Radiology Impression Abdomen/Pelvis CT 06/25/23 20:59 IMPRESSION: 1. Abnormal bowel pattern consistent with a distal small bowel obstruction possibly related to the patient''s known ileal mass, and/or a right mid abdominal internal hernia. 2. Worsening of bilateral pleural effusions and compressive atelectasis of both lower lobes. Electronically Signed: Pavan Garza MD at 22:43 EDT , KUB X-Ray 06/26/23 09:05 IMPRESSION: Persistent bilateral pleural-parenchymal changes worse at the left lung base. The nasogastric tube is in situ with the tip ending towards the gastroesophageal junction. Electronically Signed: Tomas Palmer MD at 10:26 EDT , Physical Exam Narrative Alert awake oriented x 3 no obvious distress no pallor no icterus no JVD s1s2 no murmurs lungs clear abdomen soft no organomegaly no edema no cyanosis david + Assessment & Plan Assessment/Plan (1) MANDEEP (acute kidney injury): PLAN: Baseline creatinine was normal as of 3 days ago. Rapid rise in creatinine. Renal ultrasound negative, David catheter indwelling, unlikely obstructive nephropathy. Urine analysis shows 1+ protein, 1+ blood. Urine protein creatinine ratio 1.8 g. She was on vancomycin with couple of elevated levels. Now she is off. Urine sodium is high. Vancomycin level was 27. Likely ATN due to ongoing events. No acute indications for renal replacement therapy today Discussed with hospitalist. Possible transfer to [facility] Discussed with at bedside. Updated about the plan.
[2023-06-26 13:37] LABS: Pathologist Review Reviewed
[2023-06-26 13:44] LABS: Pathologist Review Reviewed
--- NOTE | 2023-06-26 14:45 | PN.SURG_ITS ---
Subjective Subjective Patient is resting in bed with son at bedside. She is alert. She does endorse abdominal pain. NG tube in place. She has MANDEEP with worsening kidney function. Now with concern for potential surgical intervention for her small bowel mass there are plans for transfer to tertiary care. Objective Data Objective Data Vital Signs: Vital Signs Temp Pulse Resp BP Pulse Ox O2 Del Method O2 Flow Rate 97.7 F L 114 H 36 H 148/82 H 98 Nasal Cannula 2 06/26/23 13:53 06/26/23 13:53 06/26/23 13:53 06/26/23 13:53 06/26/23 13:53 06/26/23 13:53 06/26/23 13:53 Oxygen Flow Rate (L/min) 2 Oxygen Delivery Method Nasal Cannula Weight: 133 lb 6.075 oz Body Mass Index (BMI) 22.8 Intake & Output: Intake and Output for Last 24 Hours 06/24/23 06/25/23 06/26/23 23:59 23:59 23:59 Intake Total 1725 / 1725 3408.25 / 3408.25 1098.5 / 1098.5 Output Total 100 / 100 80 / 80 Balance 1725 / 1725 3308.25 / 3308.25 1018.5 / 1018.5 Medical Nutrition Assessment Dietitian: Malnutrition Criteria Met Start: 06/19/23 16:32 Freq: Status: Active Protocol: Document 06/24/23 13:39 AG (Rec: 06/24/23 13:39 AG [id number]) Nutrition Malnutrition Evidence of Malnutrition Exists Yes Malnutrition (severe): Acute Illness/Injury Evidenced By Suboptimal Energy Intake ( Severe),Weight Loss (Severe) Clinical Problem Acute Disease or Injury Related Malnutrition Etiology severe, acute malnutrition related to inadequate energy intake Signs/Symptoms as evidenced by estimated PO intake meeting <50% of estimated energy needs > 5 days, unintentional 9% wt loss < 2 months [employer] Status Active Problem Recommendation Dietitian Recommendations/Changes recommend regular diet when medically appropriate given signs and symptoms of malnutrition; continue 240mL ensure clear TID w/ meals for additional nutrition if consumed when diet is resumed Lab / Micro Data 06/26/23 12:19 06/26/23 04:25 Labs: Laboratory Results - last 24 hr 06/19/23 14:30: Crossmatch See Detail 06/25/23 06:00: Diff Path Review Reviewed 06/25/23 09:00: Crossmatch See Detail 06/25/23 17:18: Ur Random Sodium 102 06/25/23 17:22: Hgb 7.9 L, Hct 24.4 L 06/26/23 04:25: WBC 47.2 H*, RBC 2.10 L, Hgb 6.4 L, Hct 20.0 L, MCV 95.2, MCH 30.5, MCHC 32.0, RDW Std Deviation 53.9 H, RDW Coeff of Bryanna 15.6 H, Plt Count 462 H, MPV 9.0, Immature Gran % (Auto) 2.700 H, Neut % (Auto) 89.0 H, Lymph % (Auto) 3.9 L, [place] % (Auto) 3.7, Eos % (Auto) 0.3, Baso % (Auto) 0.4, Absolute Neuts (auto) 42.0 H, Absolute Lymphs (auto) 1.84, Nucleated RBC % 0, Diff Path Review Reviewed, Sodium 138, Potassium 5.1, Chloride 116 H, Carbon Dioxide 15.0 L, Anion Gap 7, BUN 30 H, Creatinine 4.35 H, Estim Creat Clear Calc 12.02, Est GFR (MDRD) Af Amer 13 L, Est GFR (MDRD) Non-Af 11 L, BUN/Creatinine Ratio 6.9 L, Glucose 103, Calcium 7.9 L, Total Bilirubin 0.30, AST 25, ALT 19, Alkaline Phosphatase 105, Total Protein 4.5 L, Albumin 1.2 L, Globulin 3.3, Albumin/Globulin Ratio 0.4 L 06/26/23 06:30: Crossmatch See Detail 06/26/23 07:30: Lactic Acid 1.0 06/26/23 12:19: Hgb 8.7 L, Hct 26.0 L Micro: Microbiology 06/23/23 09:32 Blood Culture (Wb) - Right Wrist Blood Culture - Preliminary No growth in 48 hours. 06/18/23 12:35 Blood Culture (Wb) - Right Wrist Blood Culture - Final No growth in 5 days. 06/18/23 12:20 Blood Culture (Wb) - Arm Left Blood Culture - Final No growth in 5 days. 06/18/23 13:50 Urine, Catheterized Urine Culture - Final Culture exhibits no growth. 06/19/23 11:00 Stool Stool Occult Blood (DOMINGO) - Final Occult Blood Positive 06/18/23 17:54 Mucosa - Nasopharyngeal Respiratory Panel (PCR) - Final 06/18/23 13:50 Urine, Clean Catch Legionella Antigen - Final 06/18/23 13:50 Urine, Clean Catch Streptococcus pneumoniae Antigen (M - Final 06/18/23 13:32 Mucosa - Nose SARS-CoV-2, Influenza & RSV (PCR) - Final Radiography Diagnostic Testing: Radiology Impression Abdomen/Pelvis CT 06/25/23 20:59 IMPRESSION: 1. Abnormal bowel pattern consistent with a distal small bowel obstruction possibly related to the patient''s known ileal mass, and/or a right mid abdominal internal hernia. 2. Worsening of bilateral pleural effusions and compressive atelectasis of both lower lobes. Electronically Signed: Pavan Garza MD at 22:43 EDT , KUB X-Ray 06/26/23 09:05 IMPRESSION: Persistent bilateral pleural-parenchymal changes worse at the left lung base. The nasogastric tube is in situ with the tip ending towards the gastroesophageal junction. Electronically Signed: Tomas Palmer MD at 10:26 EDT , Physical Exam Const oriented x3 General Appearance: disheveled and frail HEENT Head and Scalp: normocephalic and atraumatic Face and Sinus: face symmetric Nose: external nose normal Neck full ROM General: trachea midline Resp normal respiratory effort, no retractions and no use of accessory muscles Cardio regular rhythm Rate: tachycardic Extremity no clubbing, cyanosis or edema Skin no rashes or lesions noted, no wounds and no jaundice Neuro moves all extremities and no focal motor deficits Speech: speech normal Psych Appearance: disheveled Speech: slow Assessment & Plan Assessment/Plan (1) Carotid stenosis, symptomatic, with infarction: PLAN: Patient is in the process of being transferred to tertiary care center for 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 From vascular surgical perspective, given the severity of her R ICA stenosis and associated infarcts still recommend continuation of at least ASA if possible. Ultimately, once medically stable she would benefit from surgical intervention to reduce stroke risk.
--- NOTE | 2023-06-26 14:46 | NURSING ---
Report called to michaelle at [facility].
[2023-06-26 15:32] LABS: International Normalized Ratio 1.1; Prothrombin Time (Protime)PT. 14.3 SECONDS (11.7-14.9)
--- NOTE | 2023-06-26 15:53 | DS.PCM_ITS ---
Providers Date of Admission: 06/18/23 Primary Care Physician: [facility] Phys Consultations 06/19/23 13:46 Consult: Gastroenterology Routine Consulting Provider: Jose Clement Reason for Consult: Microcytic anemia EMERGENT Consult: No MD Notified: Yes Date Notified: 06/19/23 Time Notified: 13:47 Method of Notification: Text 06/20/23 13:39 Teleneurology [Consult: Tele-Neurology] Routine Consulting Provider: [facility] Reason for Consult: cva EMERGENT Consult: No MD Notified: Yes Date Notified: 06/20/23 Time Notified: 13:40 Method of Notification: Answering Service Nursing Unit Staff Notify [facility] of Tele-Neurology Consult: Yes 06/20/23 20:00 Consult: Vascular Surgery Routine Consulting Provider: Sergio Raman Reason for Consult: severe carotid occlusion EMERGENT Consult: No MD Notified: Yes Date Notified: 06/21/23 Time Notified: 06:52 Method of Notification: Text 06/22/23 08:00 Consult: Interventional Radiology Routine Consulting Provider: Tomas Palmer Reason for Consult: CT-guided biopsy of her lung mass EMERGENT Consult: No MD Notified: Yes Date Notified: 06/20/23 Time Notified: 08:42 Method of Notification: per order to dept. 06/23/23 07:46 Consult: Infectious Disease Routine Consulting Provider: Lorenzo Mehta Reason for Consult: fever high grade on vanco and zosyn, pneumonia EMERGENT Consult: No MD Notified: Yes Date Notified: 06/23/23 Time Notified: 07:46 Method of Notification: Text 06/24/23 07:37 Consult: Oncology/Hematology Routine Consulting Provider: [facility] Reason for Consult: severe anemia, ferritin high,ON PRBC, NSCLC EMERGENT Consult: No MD Notified: Yes Date Notified: 06/24/23 Time Notified: 07:37 Method of Notification: Verbal 06/25/23 07:45 Consult: Nephrology Routine Consulting Provider: Geovanni Antoine Reason for Consult: MANDEEP EMERGENT Consult: No MD Notified: Yes Date Notified: 06/25/23 Time Notified: 07:45 Method of Notification: Text 06/26/23 00:00 Consult: General Surgery Routine Consulting Provider: Alfred Mandel Reason for Consult: suspected SBO EMERGENT Consult: No MD Notified: Yes Date Notified: 06/26/23 Time Notified: 06:11 Method of Notification: Text Reason For Visit: HYPOTENSION, PNA W/ LUNG MASS, ? 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 Patient was recently diagnosed with a pulmonary mass and is currently being worked up. Had recently been treated for pneumonia with cefdinir 1. Acute encephalopathy ? Etiology not clear. Patient underwent evaluation with CT of the head which was negative for acute CVA ? 06/20/2023;Patient did experience intermittent episodes of confusion during the evening given her history of alcohol use patient was started on phenobarb taper. Also ordered MRI of the brain with and without contrast given the finding of a lung mass. ? 06/21/2023; phenobarb taper discontinued after discussion with patient . The patient has been patient did not drink any alcohol 2 weeks prior to her admission. 06/22: Patient mental status better than yesterday. Still sometimes unaware and confused and disoriented. 06/23: Acute encephalopathy has resolved. 06/25: Patient looks a little fatigued, sick and slow probably due to bowel obstruction. After discussion with surgeon it seems patient has loop distention probably due to internal herniation from tumor patient is still passing flatus. Maybe ileus/mechanical extrinsic obstruction from small bowel tumor 2. Small bowel obstruction: CT abdomen pelvis/without oral and IV contrast reviewed. Previous CT abdomen shows evidence of 4.5 x 4 x 5 cm denies mass in the distal ileum which could not be reached through the colonoscopy although Dr. Clement try to reach [address] abdomen pelvis of 06/24 night showed mid to distal small bowel obstruction possibly due to ileal mass/right abdominal internal herniation. Discussed with the surgeon. Patient had a little bit bowel movement per nursing charting until yesterday. Still passing flatus. No vomiting. Surgeon and I and other consultants, we agree that patient needs to transfer to tertiary care hospital because of complicated history and multiple acute issues. For now conservative management NG tube, IV fluid, total n.p.o. I called [facility] [place] and gave preliminary information regarding history, exam and imaging findings and assessment and plan. I talked to hospitalist of [facility] [place] that he wanted to run with the distributor cleaner in [facility] so that patient can go there as she is as many active compounding problems. I further talked to the distributor cleaner and [facility] and is up the patient in ICU. He knows about the urgency of transfer most likely she will be transferred by the evening today. Patient is being transferred to ICU as she is Fast is tolerating. 3. Right upper lobe pneumonia -?? Postobstructive pneumonia patient has significant leukocytosis. Patient started on Zosyn and vancomycin to cover for multidrug-resistant organisms ? 06/20/2023; CT of the abdomen pelvis and chest did show 3.7 cm x 3.3 cm mass in the lateral aspect of the right upper lobe. 5.6 mm faint nodule seen in the posterior aspect of the right upper lobe.There is a 4.5 cm x 4 cm x 5 cm heterogeneous mass in the distal ileum. Bladder wall t hickening although bladder is not completely distended at this time.. An order was given for patient to undergo CT-guided biopsy on 06/22/202306/22, patient did spike fever yesterday. ID consult requested. Immature granulocyte 1.1%. Discussed with ID continue same antibiotic. Positive fever may be from tumor/paraneoplastic syndrome. 06/24: Vancomycin was stopped on 06/23. Vanco trough was high 25.2 and 27.7. Last dose was on 06/22. 3. MANDEEP: Creatinine suddenly increased to 2.1. BUN normal.It was normal before 0.5, 0.6. IV fluid normal saline started. Monitor kidney function.No Pastor cat heter. 06/24: MANDEEP with relatively normal BUN probably due to ATN. Vancomycin suspected. Creatinine jumped up from 2.1-3.43. BUN 11-23. 1 L IV fluid normal saline bolus and then continue. Medications reconciliation done and nephrotoxic medications were discontinued. IV Zosyn change from every 8 tolerated every 12 hourly. Kidneys and bladder ultrasound shows normal thickness of distended urinary bladder although suboptimally evaluated no demonstrated mass. No bladder calculi. Overall since patient urine output has also decreased. Pastor catheter ordered for strict YURIDIA's. Contracts Paralegal consult reviewed and appreciated. Will hold for MR enterography for now. 06/25: Further worsening of creatinine looks ATN. Urine output further dropped. Charted as 100 on 06/24. Had a small bowel movement. Intake and output charting documented as +16,000 but prior to 06/24, patient had urinary incontinence and urine output was not charted accurately 4. Lung mass ? CT of the abdomen pelvis and chest ordered for subsequent eval plan is for patient to follow-up with pulmonary medicine when medically stable 06/21: Plan for lung biopsy today. 06/21 lung biopsy was done. Postprocedure x-ray did not show pneumothorax. 06/23: Lung biopsy pathology shows known cell lung cancer, adenocarcinoma, poorly differentiated NSCLC. Consequently oncology consult was called mainly for not responding severe anemia despite multiple transfusion. CT abdomen/pelvis with contrast on 06/18 showed evidence of 4.5 x 4 x 5 cm mass mass in the distal ileum with multiple colonic diverticula consistent with diverticulosis. Discussed with the GI. MR enterography ordered. 5. 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 MRI demonstrated Multiple small acute right cerebral and basal ganglia infarcts, likely embolic in etiology. CT of the head and neck does not show evidence for large vessel occlusion in the [place] region but severe stenosis and near occlusion of the proximal right internal carotid artery in the neck with string of flow. Otherwise mild diffuse narrowing of the caliber of the right ICA mid to distal neck and intracranial portion without significant stenosis or occlusion. [facility] patient started on antiplatelet therapy as well as statin therapy ordered 2D echo and consultation placed to vascular surgery regarding patient severe carotid artery stenosis 06/21: Discussed with the vascular surgeon Dr. Raman and recommended right CEA after other ongoing medical issues are stabilized including biopsy of the lung mass and GI bleed 06/22: Discussed with the [facility] neurologist. LDL 49. Continue aspirin. 5. Anemia - Secondary to chronic disorder/underlying malignancy monitoring H&H and transfuse if patient becomes symptomatic or hemoglobin falls below 7. With the patient hemoglobin being low at 6.1 did undertake iron studies, B12 as well as ferritin levels and order was given for patient to be transfused 1 unit PRBC ? 06/20/2023; patient was seen by Dr. Clement with GI recommendations for patient to undergo both upper and lower endoscopic evaluation ?06/21/2023; EGD by Dr. Clement on 06/28/2023 for results as below 06/21: Hemoglobin dropped to 6.2. from 7.4. 1 unit of PRBC transfusion ordered. Impressions : - No gross lesions in the entire esophagus. - Non-bleeding gastric ulcer with no stigmata of bleeding. Biopsied. - Non-bleeding duodenal ulcer with no stigmata of bleeding. Recommendations : - Return [facility] to [facility] for [facility] care. - Clear liquid diet. - Continue present medications. - Await pathology results. ?Patient is scheduled to undergo colonoscopy on 06/22/2023. 06/22: Severe anemia. Patient had PRBC transfusion. Posttransfusion CBC, H&H 8 .1/24%. Platelet count 567,000. Critical high WBC count. On leukocytosis 06/23: Hemoglobin dropped to 7.3. Leukocytosis 36,000 mainly neutrophil 89% lymphocyte 3.6%.Recommended evidence of 4.5 x 4 cm immature granulocytes 2.2%. Neutrophilia, monocytosis and leukocytosis. Colonoscopy shows 1 cm polyp in rectum. Anal fissure diverticulosis. Patient might of bleeding from diverticulosis but still does not account for the severity of loss of blood. MR enterography ordered. impressions : - One 20 mm polyp in the rectum, removed with a hot snare. Resected and retrieved. - Anal fissure. Treated with a heater probe. - Diverticulosis in the recto-sigmoid colon, in the sigmoid colon and in the descending colon. - The examined portion of the ileum was normal. Recommendations : - [facility] to [facility] care. - Resume regular diet. - Continue present medications. - Await pathology results. - Repeat colonoscopy in 1 year for surveillance. 6. Hypertension - Blood pressure controlled, home medications continued with dose adjustment as needed 7. COPD with acute exacerbation - Patient started on bronchodilator treatment, systemic steroid as well as ant ibiotic therapy. Patient placed on oxygen titrated to keep saturation greater than 90. 8. Tobacco dependence - Counseled on cessation, offered nicotine patch for tobacco cravings 9. CT evidence of old lacunar infarct ? Patient was started on antiplatelet therapy with aspirin held given her sign ificant anemia 10. Hypokalemia -Corrected per protocol, repeat labs ordered for a.m. 11. DVT prophylaxis ? Patient has been started on enoxaparin discontinued given her significant anemia. Initiated SCDs. Plan is to resume Lovenox once colonoscopy does not reveal any evidence of GI bleed Total time of the visit including total time spent in counseling or coordination of care, (more than 50% of the total time, spent in obtaining medical information from nurses and other ancillary care providers,explaining to the patient about labs, imaging, diagnosis and management of active complex medical conditions), discussion with the stroke coordinator, distributor cleaner hospitalist of [facility] and [facility], review of labs and imaging multiple rounds of discussion with patient about 3 times since surgery is 70 minutes Medications at Discharge Home Medications cefdinir 300 mg capsule 300 mg PO Q12H 06/18/23 ferrous fumarate 324 mg (106 mg iron) tablet (Ferrocite) 324 mg PO DAILY 06/18/23 folic acid 1 mg tablet 1 mg PO DAILY 06/18/23 magnesium oxide 400 mg (241.3 mg magnesium) tablet 400 mg PO TID 06/18/23 thiamine HCl (vitamin B1) 100 mg tablet 100 mg PO DAILY 06/18/23 Physical Exam Narrative Please see exam finding on the progress note. Medical Records Data Medical Nutrition Assessment Dietitian: Malnutrition Criteria Met Start: 06/19/23 16:32 Freq: Status: Active Protocol: Document 06/24/23 13:39 AG (Rec: 06/24/23 13:39 AG [id number]) Nutrition Malnutrition Evidence of Malnutrition Exists Yes Malnutrition (severe): Acute Illness/Injury Evidenced By Suboptimal Energy Intake ( Severe),Weight Loss (Severe) Clinical Problem Acute Disease or Injury Related Malnutrition Etiology severe, acute malnutrition related to inadequate energy intake Signs/Symptoms as evidenced by estimated PO intake meeting <50% of estimated energy needs > 5 days, unintentional 9% wt loss < 2 months area captain Status Active Problem Recommendation Dietitian Recommendations/Changes recommend regular diet when medically appropriate given signs and symptoms of malnutrition; continue 240mL ensure clear TID w/ meals for additional nutrition if consumed when diet is resumed Weight / BMI Weight Weight: 133 lb 6.075 oz Body Mass Index (BMI) 22.8 ABG / Lab / Microbiology Data 06/26/23 12:19 06/26/23 04:25 Laboratory: Laboratory Results - last 24 hr 06/19/23 14:30: Crossmatch See Detail 06/25/23 06:00: Diff Path Review Reviewed 06/25/23 09:00: Crossmatch See Detail 06/25/23 17:18: Ur Random Sodium 102 06/25/23 17:22: Hgb 7.9 L, Hct 24.4 L 06/26/23 04:25: WBC 47.2 H*, RBC 2.10 L, Hgb 6.4 L, Hct 20.0 L, MCV 95.2, MCH 30.5, MCHC 32.0, RDW Std Deviation 53.9 H, RDW Coeff of Bryanna 15.6 H, Plt Count 462 H, MPV 9.0, Immature Gran % (Auto) 2.700 H, Neut % (Auto) 89.0 H, Lymph % (A uto) 3.9 L, Barber % (Auto) 3.7, Eos % (Auto) 0.3, Baso % (Auto) 0.4, Absolute Neuts (auto) 42.0 H, Absolute Lymphs (auto) 1.84, Nucleated RBC % 0, Diff Path Review Reviewed, Sodium 138, Potassium 5.1, Chloride 116 H, Carbon Dioxide 15.0 L, Anion Gap 7, BUN 30 H, Creatinine 4.35 H, Estim Creat Clear Calc 12.02, Est GFR (MDRD) Af Amer 13 L, Est GFR (MDRD) Non-Af 11 L, BUN/Creatinine Ratio 6.9 L, Glucose 103, Calcium 7.9 L, Total Bilirubin 0.30, AST 25, ALT 19, Alkaline Phosphatase 105, Total Protein 4.5 L, Albumin 1.2 L, Globulin 3.3, Albumin/Globulin Ratio 0.4 L 06/26/23 06:30: Crossmatch See Detail 06/26/23 07:30: Lactic Acid 1.0 06/26/23 12:19: Hgb 8.7 L, Hct 26.0 L 06/26/23 14:35: PT 14.3, INR 1.1 Microbiology: Microbiology 06/23/23 09:32 Blood Culture (Wb) - Right Wrist Blood Culture - Preliminary No growth in 48 hours. 06/18/23 12:35 Blood Culture (Wb) - Right Wrist Blood Culture - Final No growth in 5 days. 06/18/23 12:20 Blood Culture (Wb) - Arm Left Blood Culture - Final No growth in 5 days. 06/18/23 13:50 Urine, Catheterized Urine Culture - Final Culture exhibits no growth. 06/19/23 11:00 Stool Stool Occult Blood (DOMINGO) - Final Occult Blood Positive 06/18/23 17:54 Mucosa - Nasopharyngeal Respiratory Panel (PCR) - Final 06/18/23 13:50 Urine, Clean Catch Legionella Antigen - Final 06/18/23 13:50 Urine, Clean Catch Streptococcus pneumoniae Antigen (M - Final 06/18/23 13:32 Mucosa - Nose SARS-CoV-2, Influenza & RSV (PCR) - Final Radiography Diagnostic Testing: Radiology Impression Abdomen/Pelvis CT 06/25/23 20:59 IMPRESSION: 1. Abnormal bowel pattern consistent with a distal small bowel obstruction possibly related to the patient''s known ileal mass, and/or a right mid abdominal internal hernia. 2. Worsening of bilateral pleural effusions and compressive atelectasis of both lower lobes. Electronically Signed: Pavan Garza MD at 22:43 EDT , KUB X-Ray 06/26/23 09:05 IMPRESSION: Persistent bilateral pleural-parenchymal changes worse at the left lung base. The nasogastric tube is in situ with the tip ending towards the gastroesophageal junction. Electronically Signed: Tomas Palmer MD at 10:26 EDT , Meaningful Use Info Meaningful Use Meaningful Use Diagnoses (Choose all that apply): None applicable Ischemic Stroke Statin Dosing Therapy Reference: STATIN DOSE THERAPY REFERENCE: * Patients > 75 years receive moderate or high dose statin therapy. * Patients 75 years or YOUNGER should receive HIGH intensity statin dose unless contraindicated. You will be required to document reason for non-treatment if statin daily dose does not meet guidelines. HIGH DOSE STATIN THERAPY DAILY Atorvastatin > than or = to 40 mg Rosuvastatin > than or = to 20 mg Amlodipine + Atorvastatin > than or = to 2.5/40 mg Ezetimibe + Simvastatin 10/80 mg Simvastatin 80mg Discharge Plan Admission Admit Date/Time: 06/18/23 15:48 Attending Provider: Boone Vinson Primary Care Provider: Care Physician,No Primary Consulting Providers: Karuna Marrero; Jose Clement; Tomas Palmer; Atif Richard; Arlen Harris; Sepideh Gallardo; Julieth Curran; Zehra Bonilla; Brant Morillo; Rosa Ellington; Brice Diego; Toni Jacobson; Joycelyn Garber; Demetrio Savage; Dorie Connor; Deangelo Pillai; Lauren Leong; aJcek Lopez; Oral Gann; Everton Zhang; Radha Weinstein; Inge Wood; Sergio Raman; Symone Junior; Jacobo Mae; Miguel Reyes; RAVEN MAYA; Diego Daily; Cassie Hernandez; Parag Robbins; Lorenzo Mehta; Parag Brewer; Jensen Martinez; Louie Godinez; Lorenzo Traylor; Tay Marquez; Vitaliy Abbasi; Damion Medel; Keyonna Robles NP; Geovanni Antoine; Alfred Mandel Instructions Patient Instructions: RAD 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 Boone Vinson Charges/Coding Visit Charges Inpatient E&M: 73122 Disch Hosp >30min
== END 2023-06-26 16:01 | disposition short-term general hospital (02) | DRG 139 ==
LOC: ED 14:42 → PCU 15:53
PROVIDERS: Family Medicine; Internal Medicine; Internal Medicine Gastroenterology; Internal Medicine Infectious Disease; Internal Medicine Nephrology; Surgery; Admitting Provider Family Medicine; Emergency Provider Emergency Medicine; Visit Provider Internal Medicine
PROC: 0DJ08ZZ Inspection of Upper Intestinal Tract, Via Natural or Artificial Opening Endoscopic (ICD-10-PCS; CPT 43235; principal; 2023-06-20 09:30)
PROC: 0DJD8ZZ Inspection of Lower Intestinal Tract, Via Natural or Artificial Opening Endoscopic (ICD-10-PCS; CPT 45378; principal; 2023-06-24 16:25)
DX: J18.9 Pneumonia, unspecified organism (principal); I63.511 Cerebral infarction due to unspecified occlusion or stenosis of right middle cerebral artery; N17.0 Acute kidney failure with tubular necrosis; G93.40 Encephalopathy, unspecified; K56.609 Unspecified intestinal obstruction, unspecified as to partial versus complete obstruction; E43 Unspecified severe protein-calorie malnutrition; C34.90 Malignant neoplasm of unspecified part of unspecified bronchus or lung; G81.94 Hemiplegia, unspecified affecting left nondominant side; J44.0 Chronic obstructive pulmonary disease with (acute) lower respiratory infection; J44.1 Chronic obstructive pulmonary disease with (acute) exacerbation; K70.9 Alcoholic liver disease, unspecified; I10 Essential (primary) hypertension; D50.0 Iron deficiency anemia secondary to blood loss (chronic); F10.11 Alcohol abuse, in remission; I95.9 Hypotension, unspecified; I65.21 Occlusion and stenosis of right carotid artery; E87.6 Hypokalemia; K60.2 Anal fissure, unspecified; K57.30 Diverticulosis of large intestine without perforation or abscess without bleeding; J90 Pleural effusion, not elsewhere classified; K26.9 Duodenal ulcer, unspecified as acute or chronic, without hemorrhage or perforation; K22.10 Ulcer of esophagus without bleeding; N39.0 Urinary tract infection, site not specified; Z80.8 Family history of malignant neoplasm of other organs or systems; Z87.891 Personal history of nicotine dependence; K25.9 Gastric ulcer, unspecified as acute or chronic, without hemorrhage or perforation; N32.89 Other specified disorders of bladder; R29.703 NIHSS score 3; Z79.82 Long term (current) use of aspirin; Z90.49 Acquired absence of other specified parts of digestive tract; Z68.22 Body mass index [BMI] 22.0-22.9, adult
CPT/HCPCS: 36415; 36600; 70450; 70496; 70498; 70553; 71045; 71046; 71260; 74018; 74176; 74177; 76770; 77012; 80048; 80053; 80061; 80202; 81001; 81002; 81025; 82274; 82378; 82436; 82570; 82607; 82728; 82746; 82803; 83036; 83540; 83550; 83605; 83735; 83880; 83935; 84100; 84133; 84145; 84156; 84300; 84484; 84550; 85014; 85018; 85025; 85610; 85730; 86301; 86850; 86900; 86901; 86920; 86922; 87040; 87086; 87088; 87449; 87631; 87633; 87641; 88172; 88305; 88313; 88341; 88342; 92526; 92610; 93005; 93306; 94640; 94668; 94762; 95819; 97110; 97116; 97162; 97164; 97166; 97168; 97535; 97803; 99156; 99157; 99285; A9575; J7030; J7040; J7050; J7120; P9016; Q9957; Q9967; A4216; C2613; J1940; J2405